=== PATIENT | male | born 1945 | race Caucasian/White ===

== ENCOUNTER 2016-12-05 19:29 | Emergency (ER) | payer BC, OTHER ==
[2016-12-05 19:38] VITALS: BP 125/68; PULSE 74; TEMP 98.4; BMI 25.7
--- NOTE | 2016-12-05 20:21 | PDOC ---
History of Present Illness - General Chief Complaint: Chest Pain Stated Complaint: CHEST PAIN Time Seen by Provider: 12/05/16 20:01 History Source: Patient Exam Limitations: No Limitations - History of Present Illness Initial Comments: 12/05/16 20:15 (Patient resting in bed texting prior to entering examination room; no acute distress identified). 71yo Male patient w/ PmHx: HTN, HLD, DVT, PE, Prostate CA (14yrs ago), Prostatectomy on Lovenox and Coumadin 5mg presents to ED c/o Chest pains. Patient states Oct 23 he traveled to [facility] and return Nov 12. At this time he was experiencing abdominal pain with diarrhea and was diagnosed with travelers diarrhea by PMD and put on two Abx. Symptoms resolved per patient. He states last week he went to see his PMD for results of stool culture , and described having right calf pain, and SOB with CP. He was sent to [place] where he was diagnosed with right LE DVT and Bilateral PE's. Patient was admitted and discharged 3 days later on Tylenol, Coumadin, and Lovenox. Patient now states having CP that began this morning with pressure that worsened this evening. He denies n/v/d, fever, cough, back pain, dizziness, headache, lightheadedness, rash or any other complaints at this time. Presenting Symptoms: Chest Pain Timing/Duration: reports: getting worse Severity/Quality: reports: moderate, pressure Location: reports: other (Left chest wall.) Chest Pain Radiation: reports: no radiation Activities at Onset: reports: no specific activity Past History - Travel Traveled outside of the country in the last 30 days: No Close contact w/someone who was outside of country & ill: No - Past Medical History Allergies/Adverse Reactions: Allergies Allergy/AdvReac Type Severity Reaction Status Date / Time No Known Allergies Allergy Verified 04/17/15 03:51 Home Medications: Ambulatory Orders Simvastatin 20 mg PO DAILY 09/02/11 Atenolol [Tenormin] 25 mg PO DAILY 09/18/12 Cancer: Yes (PROSTATE; REMOVED) HTN: Yes Hypercholesterolemia: Yes - Suicide/Smoking/Psychosocial Hx Smoking Status: No Smoking History: Former smoker Have you smoked in the past 12 months: No Number of Cigarettes Smoked Daily: 0 Information on smoking cessation initiated: No Hx Alcohol Use: No Drug/Substance Use Hx: No Substance Use Type: None Cardiac Specific PMH - Complaint Specific PMHX Abdominal Aortic Aneurysm: No Angina: No Cardiac Arrhythmia: No Cardiac Stent: No GERD: No Myocardial Infarction: No Pacemaker: No Pulmonary Embolus: No Valvular Heart Disease: No Peripheral Vascular Disease: No Review of Systems - Review of Systems Able to Perform ROS?: Yes Is the patient limited Dominican proficient: No Constitutional: No: Chills, Fever Respiratory: No: Cough, Shortness of Breath, Wheezing, Productive cough Cardiac (ROS): Yes: Chest Pain. No: Edema, Irregular Heart Rate, Lightheadedness, Palpitations, Syncope, Chest Tightness ABD/GI: No: Constipated, Diarrhea, Nausea, Poor Appetite, Poor Fluid Intake, Rectal Bleeding, Vomiting, Abdominal cramping : No: Dysuria Musculoskeletal: No: Back Pain Integumentary: No: Bruising All Other Systems: Reviewed and Negative *Physical Exam - Vital Signs Last Vital Signs Temp Pulse Resp BP Pulse Ox 98.4 F 74 99 H 125/68 99 12/05/16 19:35 12/05/16 19:35 12/05/16 19:35 12/05/16 19:35 12/05/16 19:35 - Physical Exam General Appearance: Yes: Nourished, Appropriately Dressed. No: Apparent Distress, Mild Distress, Moderate Distress, Severe Distress Neck: positive: Trachea midline, Normal Thyroid, Supple. negative: Rigid, Stridor, Lymphadenopathy (R), Lymphadenopathy (L) Respiratory/Chest: positive: Lungs Clear, Normal Breath Sounds. negative: Chest Tender, Respiratory Distress, Accessory Muscle Use, Labored Respiration, Rapid RR, Rhonchi, Stridor, Wheezing Cardiovascular: positive: Regular Rhythm, Regular Rate Gastrointestinal/Abdominal: positive: Normal Bowel Sounds, Soft, Distended. negative: Tender, Flat, Guarding, Rebound, Tenderness Musculoskeletal: positive: Normal Inspection. negative: CVA Tenderness, Decreased Range of Motion Extremity: positive: Normal Capillary Refill, Normal Inspection, Normal Range of Motion. negative: Pedal Edema, Swelling, Calf Tenderness, Erythema, Inflammation Integumentary: positive: Normal Color, Dry, Warm Neurologic: positive: director pharmacovigilance II-XII NML intact, Fully Oriented, Alert, Normal Mood/ Affect, Normal Response, Motor Strength 5/5 Heart Score/ECG Review - History History: Slightly suspicious - Electrocardiogram EKG: Normal - Age Age: >/= 65 - Risk Factors Risk Factors Heart Score: Yes Hx Hypercholesterolemia, Yes Hx Hypertension, No Hx Diabetes, No Smoking History, No Positive family hx of cardiac disease, No Hx Obesity Based on the list above the patient has:: 1-2 risk factors - Troponin Troponin: </= normal limit - Score Heart Score - Total: 3 - ECG Impressions Normal ECG: Yes Non-specific ST Elevation: No Ischemic Changes: No Bradycardia: No Torsades osbaldo Pointes: No WPW: No ED Treatment Course - LABORATORY CBC & Chemistry Diagram: 12/05/16 20:30 12/05/16 20:30 - ADDITIONAL ORDERS Additional order review: Laboratory Results 12/05/16 12/05/16 12/05/16 20:30 20:30 20:30 PT with INR 45.80 H INR 4.05 H* PTT (Actin FS) 54.4 H Sodium 137 Potassium 3.6 Chloride 102 Carbon Dioxide 31 D Anion Gap 4 L BUN 18 Creatinine 0.8 Creat Clearance w eGFR > 60 Random Glucose 118 H D Calcium 9.0 Total Bilirubin 0.6 D AST 26 D ALT 42 D Alkaline Phosphatase 52 Creatine Kinase 55 Troponin I 0.02 Total Protein 6.6 Albumin 3.3 L Urine Color Ltyellow Urine Appearance Clear Urine pH 5.0 Ur Specific [place] 1.010 Urine Protein Negative Urine Glucose (UA) Negative Urine Ketones Negative Urine Blood Negative Urine Nitrite Negative Urine Bilirubin Negative Urine Urobilinogen Negative 12/05/16 20:30 RBC 4.33 MCV 96.9 H MCHC 34.3 RDW 13.3 MPV 7.2 L Neutrophils % 70.1 Lymphocytes % 17.2 D Monocytes % 11.6 H D Eosinophils % 0.4 D Basophils % 0.7 D - RADIOLOGY Radiology Studies Ordered: Category Date Time Status ABDOMEN & PELVIS CT WITH CONTR [CT] Stat CT Scan 12/05/16 22:04 Completed CHEST CTA [CT] Stat CT Scan 12/05/16 22:04 Completed ABDOMEN US -LIMITED [US] Stat Ultrasound 12/06/16 00:27 Ordered *DC/Admit/Observation/Transfer Diagnosis at time of Disposition: Chest pain Qualifiers: Chest pain type: unspecified Qualified Code(s): R07.9 - Chest pain, unspecified Cholelithiasis Qualifiers: Cholelithiasis location: gallbladder Cholecystitis presence: without cholecystitis Biliary obstruction: without biliary obstruction Qualified Code(s) : K80.20 - Calculus of gallbladder without cholecystitis without obstruction - Discharge Dispostion Condition at time of disposition: Fair Admit: Yes
[2016-12-05 20:41] LABS: URINE APPEARANCE CLEAR; URINE BILIRUBIN NEGATIVE (NEGATIVE); URINE BLOOD NEGATIVE (NEGATIVE); URINE COLOR LTYELLOW; URINE GLUCOSE (UA) NEGATIVE (NEGATIVE); URINE KETONE NEGATIVE (NEGATIVE); URINE LEUK ESTERASE NEGATIVE (NEGATIVE); URINE NITRITE NEGATIVE (NEGATIVE); URINE PROTEIN NEGATIVE (NEGATIVE); URINE UROBILINOGEN NEGATIVE mg/dL (0.2-1.0)
[2016-12-05 20:45] LABS: BASOPHIL 0.7 % (0-2.0); EOSINOPHIL 0.4 % (0-4.5); MCH 33.3 pg (25.7-33.7); MCHC 34.3 g/dl (32.0-35.9); MEAN CELL VOLUME 96.9 fl (80-96); MEAN PLT VOLUME 7.2 fl (7.5-11.1); NEUTROPHILS 70.1 % (42.8-82.8); PLATELET COUNT 285 K/MM3 (134-434); RDW 13.3 % (11.9-15.9); WHITE BLOOD COUNT 5.3 K/mm3 (4.0-10.0)
[2016-12-05 20:50] LABS: INR 4.05 (0.82-1.09); PROTHROMBIN TIME (PATIENT) 45.8 SEC (9.98-11.88)
[2016-12-05 20:55] LABS: ACTIVATED PTT 54.4 SECONDS (26.9-34.4)
[2016-12-05 21:31] LABS: ALBUMIN 3.3 g/dl (3.4-5.0); ANION GAP 4 (8-16); CO2 31 mmol/L (21-32); CREATININE 0.8 mg/dL (0.7-1.3); GLUCOSE,RANDOM 118 mg/dL (74-106); SGOT/AST 26 U/L (15-37); SGPT/ALT 42 U/L (12-78)
[2016-12-05 21:35] LABS: ALK PHOS 52 U/L (45-117); BILIRUBIN,TOTAL 0.6 mg/dL (0.2-1.0); CPK 55 IU/L (39-308); TOT PROT 6.6 g/dl (6.4-8.2); TROPONIN I 0.02 ng/ml (0.00-0.05)
[2016-12-06] MEDS ORDERED: ASPIRIN 81 MG CHEWABLE TABLETS PO ONE (00:43)
--- NOTE | 2016-12-06 01:52 | HOSP ---
Physical Examination Vital Signs: Vital Signs Temperature 98.4 F 12/05/16 19:35 Pulse Rate 74 12/05/16 19:35 Respiratory Rate 99 H 12/05/16 19:35 Blood Pressure 125/68 12/05/16 19:35 O2 Sat by Pulse Oximetry (%) 99 12/05/16 19:35 Hospitalist Encounter Assessment: Upon arriving to bedside to examine pt, pt states "I have to leave by 6am for a doctor appointment in the city." Pt does not want to stay as inpatient obs. DW ED attending and PACKER INSPECTOR who agree pt should stay for 2nd troponin at 3am and then can be discharged home to his MD appointment if it is negative. Discussed plan with patient and he is in agreement. Observation admission cancelled.
[2016-12-06 03:01] LABS: TROPONIN I 0.02 ng/ml (0.00-0.05)
--- NOTE | 2016-12-06 03:24 | PDOC ---
ED Treatment Course - LABORATORY CBC & Chemistry Diagram: 12/05/16 20:30 12/05/16 20:30 - ADDITIONAL ORDERS Additional order review: Laboratory Results 12/05/16 12/05/16 12/05/16 20:30 20:30 20:30 PT with INR 45.80 H INR 4.05 H* PTT (Actin FS) 54.4 H Sodium 137 Potassium 3.6 Chloride 102 Carbon Dioxide 31 D Anion Gap 4 L BUN 18 Creatinine 0.8 Creat Clearance w eGFR > 60 Random Glucose 118 H D Calcium 9.0 Total Bilirubin 0.6 D AST 26 D ALT 42 D Alkaline Phosphatase 52 Creatine Kinase 55 Troponin I 0.02 Total Protein 6.6 Albumin 3.3 L Urine Color Ltyellow Urine Appearance Clear Urine pH 5.0 Ur Specific [place] 1.010 Urine Protein Negative Urine Glucose (UA) Negative Urine Ketones Negative Urine Blood Negative Urine Nitrite Negative Urine Bilirubin Negative Urine Urobilinogen Negative 12/05/16 20:30 RBC 4.33 MCV 96.9 H MCHC 34.3 RDW 13.3 MPV 7.2 L Neutrophils % 70.1 Lymphocytes % 17.2 D Monocytes % 11.6 H D Eosinophils % 0.4 D Basophils % 0.7 D - RADIOLOGY Radiology Studies Ordered: Category Date Time Status ABDOMEN & PELVIS CT WITH CONTR [CT] Stat CT Scan 12/05/16 22:04 Completed CHEST CTA [CT] Stat CT Scan 12/05/16 22:04 Completed ABDOMEN US -LIMITED [US] Stat Ultrasound 12/06/16 00:27 Taken - Medications Given in the ED: ED Medications Discontinued Medications Generic Name Dose Route Start Last Admin Trade Name Freq PRN Reason Stop Dose Admin Aspirin 162 mg 12/06/16 00:43 12/06/16 02:33 Asa - PO 12/06/16 00:44 162 mg ONCE ONE Administration Medical Decision Making - Medical Decision Making 12/06/16 03:23 Second Troponin return normal. Patient to be d/c'd to home. Patient has appointment with Pulmonary/Cardiology @ 0900 today. This case was discussed with Melissa DENNIS and Dr. Michi AGUILAR. *DC/Admit/Observation/Transfer Diagnosis at time of Disposition: Chest pain Qualifiers: Chest pain type: unspecified Qualified Code(s): R07.9 - Chest pain, unspecified Cholelithiasis Qualifiers: Cholelithiasis location: gallbladder Cholecystitis presence: without cholecystitis Biliary obstruction: without biliary obstruction Qualified Code(s) : K80.20 - Calculus of gallbladder without cholecystitis without obstruction - Discharge Dispostion Disposition: HOME Condition at time of disposition: Stable Admit: No - Patient Instructions
--- NOTE | 2016-12-06 09:15 | EKG ---
Test Reason : Blood Pressure : / mmHG Vent. Rate : 070 BPM Atrial Rate : 070 BPM P-R Int : 158 ms QRS Dur : 112 ms QT Int : 406 ms P-R-T Axes : 028 012 057 degrees QTc Int : 438 ms NORMAL SINUS RHYTHM NON-SPECIFIC INTRA-VENTRICULAR CONDUCTION DELAY Confirmed by ASIA ACUNA MD ([id number]) on 12/06/2016 9:14:48 AM Referred By: Confirmed By:ASIA ACUNA MD
== END 2016-12-06 06:34 | disposition home or self-care (01) ==
LOC: JER 19:29 → UNDOADMOB 12-06 00:56 → JERBED 12-06 00:56 → UNDOADMOB 12-06 01:03 → JER 12-06 06:34
DX: K80.20 Calculus of gallbladder without cholecystitis without obstruction (principal); I10 Essential (primary) hypertension; E78.00 Pure hypercholesterolemia, unspecified; Z86.718 Personal history of other venous thrombosis and embolism; Z85.46 Personal history of malignant neoplasm of prostate; Z79.01 Long term (current) use of anticoagulants
CPT/HCPCS: 36415; 71275-TC; 74177-TC; 76705-TC; 80053; 81003; 84484; 85025; 85610; 85730; 87086; 93005; 93010; 99284-25

== ENCOUNTER 2017-07-13 02:11 | Inpatient (IN) | payer BC, OTHER ==
--- NOTE | 2017-07-13 02:39 | PDOC ---
History of Present Illness - General Stated Complaint: ABDOMINAL PAIN Time Seen by Provider: 07/13/17 02:32 History Source: Patient Exam Limitations: No Limitations - History of Present Illness Initial Comments: 07/13/17 05:01 72yo Male patient w/ PmHx: HTN, HLD, DVT, PE, Prostate CA (14yrs ago), Prostatectomy (not on lovanox as of April) presnets to the ED for 10 epigastric/paraumbilical abdominal pain since around 2am. after he went to the bathroom. Has a history of gallstones. Denies fever, diarrhea. Past History - Past Medical History Allergies/Adverse Reactions: Allergies Allergy/AdvReac Type Severity Reaction Status Date / Time No Known Allergies Allergy Verified 07/13/17 02:45 Home Medications: Ambulatory Orders Atenolol [Tenormin] 25 mg PO DAILY 09/18/12 Aspirin 162 mg PO DAILY 07/13/17 Atorvastatin Ca [Lipitor] 20 mg PO HS 07/13/17 Omeprazole 40 mg PO DAILY 07/13/17 Cancer: Yes (PROSTATE; REMOVED) Diabetes: No HTN: Yes Hypercholesterolemia: Yes - Suicide/Smoking/Psychosocial Hx Smoking Status: No Smoking History: Former smoker Have you smoked in the past 12 months: No Number of Cigarettes Smoked Daily: 0 Hx Alcohol Use: No Drug/Substance Use Hx: No Substance Use Type: None Abd/GI Specific PMHX - Complaint Specific PMHX GERD: No Review of Systems - Review of Systems Able to Perform ROS?: Yes Is the patient limited Chinese proficient: No Constitutional: No: Symptoms Reported HEENTM: No: Symptoms Reported Respiratory: No: Symptoms reported Cardiac (ROS): No: Symptoms Reported ABD/GI: Yes: See HPI, Abdominal Distended, Abdominal cramping. No: Abd. Pain w / defecation, Blood Streaked Bowels : No: Symptoms Reported Musculoskeletal: No: Symptoms Reported Neurological: No: Symptoms reported All Other Systems: Reviewed and Negative *Physical Exam - Physical Exam General Appearance: Yes: Nourished, Appropriately Dressed. No: Apparent Distress HEENT: positive: EOMI, DARRIAN, Normal ENT Inspection Respiratory/Chest: positive: Lungs Clear, Normal Breath Sounds. negative: Chest Tender, Respiratory Distress Cardiovascular: positive: Regular Rhythm, Regular Rate, S1, S2 Gastrointestinal/Abdominal: positive: Normal Bowel Sounds, Tender (periumbilical , epigastric), Protuberent Musculoskeletal: positive: Normal Inspection. negative: CVA Tenderness Extremity: positive: Normal Capillary Refill, Normal Inspection, Normal Range of Motion Neurologic: positive: Fully Oriented, Alert, Normal Mood/Affect, Normal Response , Motor Strength 07/19 ED Treatment Course - LABORATORY CBC & Chemistry Diagram: 07/13/17 03:00 07/13/17 03:00 Medical Decision Making - Medical Decision Making 07/13/17 06:20 72m presents to the ED with abdominal pain for the past few hours after dinner. Will order basic labs, Ct abdomen and pelvis with contrast. CT positive for cholelithisis and cholecystitis. Will consult with surgery and admit patient. *DC/Admit/Observation/Transfer Diagnosis at time of Disposition: Cholecystitis - Discharge Dispostion Condition at time of disposition: Fair - Referrals Referrals: ON STAFF,NOT [Primary Care Provider] - - Patient Instructions - Post Discharge Activity
[2017-07-13 02:53] VITALS: BMI 26.9
--- NOTE | 2017-07-13 03:05 | PDOC ---
Attending Attestation - Resident Resident Name: Juan Alberto Glass - ED Attending Attestation I have performed the following: I have examined & evaluated the patient, The case was reviewed & discussed with the resident, I agree w/resident's findings & plan - HPI HPI: 07/13/17 03:05 Pt has hyperactive and some high pitched bowel sounds. Pt has belly distension. Last meal was at 5PM; last BM was 1-2 hrs ago, Pt states that it was normal consistency and size stool. - Physicial Exam PE: 07/13/17 03:03 Agree with resident exam. Pt states that he has no fever, no dysuria, no flank pain. No N/V/D - Medical Decision Making 07/13/17 04:53 Patient Name: YOGESH MEJÍA THIS IS A PRELIMINARY REPORT FROM [facility] DATE OF SERVICE: 2017-07-13 04:09:31 IMAGES: 201 EXAM: CT ABDOMEN \T\ PELVIS CT WITH CONTR HISTORY: Obstruction COMPARISON: None. FINDINGS: Abdomen Liver: Normal Spleen: Normal Pancreas: Normal Gallbladder: Gallbladder is distended. There is cholelithiasis. There is some gallbladder wall thickening Stomach: Normal Small bowel: Normal Large bowel: Normal Appendix: Normal Adrenals:Normal Kidneys: There is a left renal cyst Vascular: Normal Lymphatic: Normal Peritoneal: No free peritoneal air or fluid Pelvis: Prostate: normal Rectum: Normal Bladder: Normal The inferior thorax: Normal General: Skeletal: Normal Abdominal wall: There is a left femoral hernia containing a portion of nonobstructed sigmoid colon IMPRESSION: Gallbladder distention with cholelithiasis suggesting acute cholecystitis THIS DOCUMENT HAS BEEN ELECTRONICALLY SIGNED 07/13/17 05:10 Pt will be admitted to med surg hospitalist. We will notify the surgeons natural resources extension educator to come and see the patient. <Yadira Johnson - Last Filed: 07/13/17 04:53> Heart Score/ECG Review - ECG Intrepretation Comment:: 07/13/17 05:35 sinus bradycardia Otherwise normal ECG <Pancho Cross - Last Filed: 07/13/17 05:50>
[2017-07-13 03:06] LABS: BASO % 0.6 % (0-2.0); EOS % 0.7 % (0-4.5); HEMATOCRIT 44.1 % (35.4-49); HEMOGLOBIN 15.4 GM/dL (11.7-16.9); LYMPH % 16.9 % (8-40); MCH 33.6 pg (25.7-33.7); MCHC 34.9 g/dl (32.0-35.9); MEAN CELL VOLUME 96.4 fl (80-96); MEAN PLT VOLUME 7.8 fl (7.5-11.1); MONO % 9.1 % (3.8-10.2); NEUT % 72.7 % (42.8-82.8); PLATELET COUNT 183 K/MM3 (134-434); RBC 4.57 M/mm3 (4.00-5.60); RDW 13.3 % (11.9-15.9); WHITE BLOOD COUNT 6.3 K/mm3 (4.0-10.0)
[2017-07-13 03:32] LABS: ALBUMIN 3.5 g/dl (3.4-5.0); ALK PHOS 55 U/L (45-117); AMYLASE 31 U/L (25-115); ANION GAP 7 (8-16); BILIRUBIN,TOTAL 0.9 mg/dL (0.2-1.0); BLOOD UREA NITROGEN 14 mg/dL (7-18); CALCIUM 9.2 mg/dL (8.5-10.1); CHLORIDE 105 mmol/L (98-107); CO2 28 mmol/L (21-32); CREATININE 0.7 mg/dL (0.7-1.3); GLUCOSE,RANDOM 109 mg/dL (74-106); LIPASE 48 U/L (73-393); SGPT/ALT 20 U/L (12-78); SODIUM 140 mmol/L (136-145); TOT PROT 6.5 g/dl (6.4-8.2)
[2017-07-13 03:38] LABS: SGOT/AST 45 U/L (15-37)
[2017-07-13 08:12] LABS: URINE APPEARANCE CLEAR; URINE BILIRUBIN NEGATIVE (<2.0 mg/dL); URINE COLOR YELLOW; URINE GLUCOSE (UA) NEGATIVE (NEGATIVE); URINE KETONE NEGATIVE (NEGATIVE)
[2017-07-13 08:13] LABS: URINE LEUK ESTERASE NEGATIVE (NEGATIVE); URINE NITRITE NEGATIVE (NEGATIVE); URINE PROTEIN NEGATIVE (NEGATIVE); URINE UROBILINOGEN NORMAL mg/dL (0.2-1.0)
[2017-07-13 08:38] LABS: INR 1.17 (0.82-1.09); PROTHROMBIN TIME (PATIENT) 13.2 SEC (9.7-13.0)
[2017-07-13] MEDS ORDERED: SIMETHICONE 40 MG/0.6 ML BOTTLE PO PRN (08:38)
[2017-07-13] MEDS ORDERED: ACETAMINOPHEN 325 MG TABLET (FP) PO ONE (08:38)
--- NOTE | 2017-07-13 08:38 | HP ---
<Matthew Andino - Last Filed: 07/13/17 12:39> CHIEF COMPLAINT: abdominal pain PCP:Dr. yonas Viveros [phone], [facility] HISTORY OF PRESENT ILLNESS: 72 yr old man with HTN, HLD, hx of right leg DVT and v/l PE(dx 11/2016, completed AC tx in Mar 2017), presents to ED with abdominal pain since 1am this morning. Yesterday he ate shrimp, rice, beans, ice cream, 2 glasses of sangria around 5pm at a restaurant, went home and was able to sleep. At 1am he woke up with diffuse abdominal pain, had a nonbloody bowel movement, the pain was 10/10 , nonradiating with no alleviating or exacerbation factors. no vomiting, no fevers, no diarrhea. associated with mild dizziness when he sits up suddenly starting this morning in ED. ER course was notable for: (1)abd pelvic CT (2) surgery consult Recent Travel: none PAST MEDICAL HISTORY: hx of cholelithiasis HTN HLD DVt. 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 Smoking: denies Alcohol: occasionally Drugs: denies Family History: [place] Allergies No Known Allergies Allergy (Verified 07/13/17 02:45) HOME MEDICATIONS: Home Medications Medication Instructions Recorded Atenolol [Tenormin] 25 mg PO DAILY 09/18/12 Aspirin 162 mg PO DAILY 07/13/17 Atorvastatin Ca [Lipitor] 20 mg PO HS 07/13/17 Omeprazole 40 mg PO DAILY 07/13/17 REVIEW OF SYSTEMS CONSTITUTIONAL: Present: weight change - unintentional, say he has not been eating his usual diet due to taking care of his mother and in past 2 months due to their acute health problems Absent: fever, chills, diaphoresis, generalized weakness, malaise, loss of appetite, HEENT: Absent: rhinorrhea, nasal congestion, throat pain, throat swelling, difficulty swallowing, mouth swelling, ear pain, eye pain, visual changes CARDIOVASCULAR: Absent: chest pain, syncope, palpitations, irregular heart rate, lightheadedness , peripheral edema RESPIRATORY: Absent: cough, shortness of breath, dyspnea with exertion, orthopnea, wheezing, stridor, hemoptysis GASTROINTESTINAL: Present:abdominal pain, abdominal distension Absent: nausea, vomiting, diarrhea, constipation, melena, hematochezia GENITOURINARY: Absent: dysuria, frequency, urgency, hesitancy, hematuria, flank pain MUSCULOSKELETAL: Absent: myalgia, arthralgia, joint swelling, back pain, neck pain SKIN: Absent: rash, itching, pallor HEMATOLOGIC/IMMUNOLOGIC: Absent: easy bleeding, easy bruising, lymphadenopathy, frequent infections ENDOCRINE: Absent: unexplained weight gain, unexplained weight loss, heat intolerance, cold intolerance NEUROLOGIC: Absent: headache, focal weakness or paresthesias, dizziness, unsteady gait PHYSICAL EXAMINATION Vital Signs - 24 hr 07/13/17 07/13/17 07/13/17 02:41 07:36 07:37 Temperature 98.7 F 97.6 F Pulse Rate 56 L Pulse Rate [ 53 L Apical] Respiratory 19 18 Rate Blood Pressure 135/79 Blood Pressure 117/61 [Right Arm] O2 Sat by Pulse 98 97 100 Oximetry (%) GENERAL: Awake, alert, and fully oriented, in no acute distress. HEAD: Normal with no signs of trauma. EYES: Pupils equal, round and reactive to light, extraocular movements intact, sclera anicteric, conjunctiva clear. No lid lag. EARS, NOSE, THROAT: Ears normal, nares patent, oropharynx clear without exudates. Moist mucous membranes. NECK: Normal range of motion, supple without lymphadenopathy, JVD, or masses. LUNGS: Breath sounds equal, clear to auscultation bilaterally. No wheezes, and no crackles. No accessory muscle use. HEART: Regular rate and rhythm, normal S1 and S2 without murmur, rub or gallop. ABDOMEN: Soft, nontender, +distended, mild engorgement of abdominal veins, normoactive bowel sounds, no guarding, no rebound, no masses. No hepatomegaly or splenomegaly. negative mc's, negative psoas, neg obturator, no rovsings MUSCULOSKELETAL: Normal range of motion at all joints. No bony deformities or tenderness. No CVA tenderness. UPPER EXTREMITIES: 2+ radial pulses, warm, well-perfused. No cyanosis. No clubbing. No peripheral edema. LOWER EXTREMITIES: warm, well-perfused. No calf tenderness. No peripheral edema. NEUROLOGICAL: Cranial nerves II-XII intact. Normal speech. Normal gait. 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 PSYCHIATRIC: Cooperative. Good eye contact. Appropriate mood and affect. SKIN: Warm, dry, normal turgor, no rashes or lesions noted, normal capillary refill. Laboratory Results - last 24 hr 07/13/17 07/13/17 07/13/17 02:48 03:00 03:00 WBC 6.3 RBC 4.57 Hgb 15.4 Hct 44.1 MCV 96.4 H MCH 33.6 MCHC 34.9 RDW 13.3 Plt Count 183 D MPV 7.8 Neutrophils % 72.7 Lymphocytes % 16.9 Monocytes % 9.1 Eosinophils % 0.7 Basophils % 0.6 PTT (Actin FS) D-Dimer Sodium 140 Potassium 5.0 D Chloride 105 Carbon Dioxide 28 Anion Gap 7 L BUN 14 D Creatinine 0.7 Creat Clearance w eGFR > 60 POC Glucometer Random Glucose 109 H Calcium 9.2 Total Bilirubin 0.9 D AST 45 H D ALT 20 D Alkaline Phosphatase 55 Total Protein 6.5 Albumin 3.5 Total Amylase 31 Lipase 48 L Urine Color Yellow Urine Appearance Clear Urine pH 6.0 Ur Specific [place] > 1.060 H Urine Protein Negative Urine Glucose (UA) Negative Urine Ketones Negative Urine Blood Negative Urine Nitrite Negative Urine Bilirubin Negative Urine Urobilinogen Normal Ur Leukocyte Esterase Negative 07/13/17 07/13/17 07/13/17 03:00 03:00 07:34 WBC RBC Hgb Hct MCV MCH MCHC RDW Plt Count MPV Neutrophils % Lymphocytes % Monocytes % Eosinophils % Basophils % PTT (Actin FS) 35.1 H D D-Dimer 559 H Sodium Potassium Chloride Carbon Dioxide Anion Gap BUN Creatinine Creat Clearance w eGFR POC Glucometer 143.95197 Random Glucose Calcium Total Bilirubin AST ALT Alkaline Phosphatase Total Protein Albumin Total Amylase Lipase Urine Color Urine Appearance Urine pH Ur Specific [place] Urine Protein Urine Glucose (UA) Urine Ketones Urine Blood Urine Nitrite Urine Bilirubin Urine Urobilinogen Ur Leukocyte Esterase ASSESSMENT/PLAN: 72 yr old man with abdominal pain admitted for abdominal pain. #abominal pain, differential included gastritis(recent seafood/rice/beans ingestion), cholelithiasis(though less likely given wnl LFT's, no mc's, no radiological findings on CT) vs biliary colic, pancreatitis(less likely given normal lipase and no radiological findings), vs constipation (though less likely due to last bm at 1am and no obstruction on CT) - pt was in NAD on exam or during interview, was given no pain meds in ED - will given tylenol po, [place], miralax, omeprazole - start clear liq diet, if tolerating - surgery evaluation - pain control with tylenol q8hr, escalate if more control is needed - LR for 1 L for hydration #pharmacy was still closed in the am, will need to confirm meds when open. #elevated AST likely due to ETOH use last night, will trend in the AM #HTN - continue home medication tenormin 25mg #HLD - continue lipitor - hold the asa incase of surgery #DVT: lovenox Visit type - Emergency Visit Emergency Visit: Yes ED Registration Date: 07/13/17 Care time: The patient presented to the Emergency Department on the above date and was hospitalized for further evaluation of their emergent condition. - New Patient This patient is new to me today: Yes Date on this admission: 07/13/17 - Critical Care Critical Care patient: No Hospitalist Screening - Colonoscopy Questionnaire Colonoscopy Questionnaire: Colonoscopy Questionnaire - Patient: 50 - 75 years old and never had a screening colonoscopy: No History of colon or rectal polyps, or CA: No History of IBD, Crohn's disease or UC: No History of abdominal radiation therapy as a child: No - Relative: 1 with colon or rectal CA, or polyps at age 60 or younger: No Colon or rectal CA diagnosed at age 45 or younger: No Multiple relatives with colon or rectal CA: No - Outcome: Screening Result: Negative Screen <Neeraj Ruggiero - Last Filed: 07/15/17 16:13> A/P: Acute Biliary colic, presented with Right Upper Quadrant pain, CT abdomen and Pelvis ordered to r/o Cholelithiasis/cholecystitis. Hospitalist Screening - Colonoscopy Questionnaire Colonoscopy Questionnaire: Colonoscopy Questionnaire
[2017-07-13] MEDS ORDERED: ACETAMINOPHEN 325 MG TABLET (FP) ONE (09:06)
[2017-07-13] MEDS ORDERED: LACTATED RINGERS SOLUTION 1,000 ML/1,000 ML INFUS.BAG IV SCH (10:00)
[2017-07-13] MEDS ORDERED: ENOXAPARIN NA (PORCINE) 40 MG/0.4 ML DISP.SYRIN SQ SCH (10:00)
[2017-07-13] MEDS ORDERED: POLYETHYLENE GLYCOL 3350 119 GM BTL PO SCH (10:00)
--- NOTE | 2017-07-13 10:28 | CONSULT ---
Consult Consult Specialty:: general surgery Referred by:: michelle Reason for Consultation:: acute cholecystis - History of Present Illness Chief Complaint: abdominal pain History of Present Illness: 72 yo man PMH HTN, HLD, hx of right leg DVT and v/l PE(dx 11/2016, completed AC tx in Mar 2017), presents with acute onset abdominal pain since 1am this morning. Yesterday he ate shrimp, rice, beans, ice cream, 2 glasses of sangria around 5pm at a restaurant, went home and was able to sleep. At 1am he woke up with diffuse abdominal pain, had a non bloody bowel movement, the pain was 10/10 , nonradiating with no alleviating or exacerbation. factors. no vomiting. No recend endoscopy. No previous abdominal surgery. CT scan shows and inflammed gallbladder and gallstones. We were asked to assess. - History Source History Provided By: Patient, Medical Record Limitations to Obtaining History: No Limitations - Past Medical History Cardio/Vascular: Yes: Deep Vein Thrombosis, HTN, Hyperlipdemia Pulmonary: Yes: Pulmonary Embolus - Alcohol/Substance Use Hx Alcohol Use: No - Smoking History Smoking history: Former smoker Have you smoked in the past 12 months: No Aproximately how many cigarettes per day: 0 - Social History History of Recent Travel: No Home Medications - Allergies Allergies/Adverse Reactions: Allergies Allergy/AdvReac Type Severity Reaction Status Date / Time No Known Allergies Allergy Verified 07/13/17 02:45 - Home Medications Home Medications: Ambulatory Orders Atenolol [Tenormin] 25 mg PO DAILY 09/18/12 Aspirin 162 mg PO DAILY 07/13/17 Atorvastatin Ca [Lipitor] 20 mg PO HS 07/13/17 Omeprazole 40 mg PO DAILY 07/13/17 Review of Systems - Review of Systems Constitutional: denies: Chills, Fever Eyes: denies: Blind Spots, Recent Change in Vision HENT: denies: Difficult Swallowing, Throat Pain Respiratory: denies: Cough, SOB Gastrointestinal: reports: Abdominal Pain, Indigestion. denies: Nausea Genitourinary: denies: Discharge, Dysuria Breasts: reports: No Symptoms Reported. denies: Pain Musculoskeletal: denies: Muscle Pain, Muscle Weakness Integumentary: denies: Lesions, Rash Neurological: denies: Seizure, Syncope Endocrine: denies: Unexplained Weight Gain, Unexplained Weight Loss Hematology/Lymphatic: denies: Easily Bruised, Excessive Bleeding Psychiatric: denies: Anxiety, Depression Physical Exam Vital Signs: Vital Signs Temperature 97.6 F 07/13/17 07:36 Pulse Rate 59 L 07/13/17 09:05 Respiratory Rate 16 07/13/17 09:05 Blood Pressure 121/64 07/13/17 09:05 O2 Sat by Pulse Oximetry (%) 97 07/13/17 09:05 Vital Signs Period Temp Pulse Resp BP Sys/Gallagher Pulse Ox Last 24 Hr 97.6 F-98.7 F 53-59 16-19 117-135/61-79 97-100 Constitutional: Yes: Well Nourished, No Distress, Calm Eyes: Yes: Conjunctiva Clear, EOM Intact HENT: Yes: Atraumatic, Normocephalic Neck: Yes: Supple, Trachea Midline Cardiovascular: Yes: Regular Rate and Rhythm, S1, S2 Respiratory: Yes: Regular, CTA Bilaterally Gastrointestinal: Yes: Normal Bowel Sounds, Soft, Abdomen, Obese, Distention, Tenderness (RUQ tenderness, - mc's), Tenderness, Epigastrium. No: Tenderness, Rebound, Vomiting ...Rectal Exam: Yes: Sphincter Tone Normal. No: Hemorrhoids/External, Mass Renal/: No: CVA Tenderness - Left, CVA Tenderness - Right Extremities: No: Cool, Cyanosis Integumentary: No: Jaundice, Rash Neurological: Yes: Alert, Oriented Psychiatric: Yes: Alert, Oriented Labs: CBC, BMP 07/13/17 03:00 07/13/17 03:00 Imaging - Results Cat Scan: Report Reviewed (gallstones and inflamed gallbladder), Image Reviewed Problem List - Problems (1) Cholecystitis Assessment/Plan: 72 yo male MMP with biliary colic versus early acute cholecystitis NPO and IVF hydration adequate analgesia Medical optimization DVT prophylaxsis Discussed with patient risks, benefits and alternatives of laparoscopic possible open cholecystectomy, including but not limited to bleeding, infection , injury to adjacent structures, leak or injury, intraabdominal abscess, need for further procedures, ; alternatives include antibiotics, delayed or no surgery - risks of this include failure of nonoperative therapy, perforation, sepsis, recurrence, . Patient desires to proceed with operation - will take to OR for above. Informed consent signed for same. Thank you for the opportunity to participate in the care of this patient. Code(s): K81.9 - CHOLECYSTITIS, UNSPECIFIED (2) Abdominal pain Code(s): R10.9 - UNSPECIFIED ABDOMINAL PAIN Qualifiers: Abdominal location: unspecified location Qualified Code(s): R10.9 - Unspecified abdominal pain (3) Cholelithiasis Code(s): K80.20 - CALCULUS OF GALLBLADDER W/O CHOLECYSTITIS W/O OBSTRUCTION Qualifiers: Cholelithiasis location: gallbladder Cholecystitis presence: without cholecystitis Biliary obstruction: without biliary obstruction Qualified Code(s): K80.20 - Calculus of gallbladder without cholecystitis without obstruction (4) UTI (lower urinary tract infection) Code(s): N39.0 - URINARY TRACT INFECTION, SITE NOT SPECIFIED
--- NOTE | 2017-07-13 10:42 | EKG ---
Test Reason : Blood Pressure : / mmHG Vent. Rate : 054 BPM Atrial Rate : 054 BPM P-R Int : 170 ms QRS Dur : 112 ms QT Int : 434 ms P-R-T Axes : 051 018 056 degrees QTc Int : 411 ms SINUS BRADYCARDIA OTHERWISE NORMAL ECG WHEN COMPARED WITH ECG OF 05-DEC-2016 19:44, NONSPECIFIC T WAVE ABNORMALITY NO LONGER EVIDENT IN ANTERIOR LEADS Confirmed by SARAH AGUILAR, OLGA ([id number]) on 07/13/2017 10:42:05 AM Referred By: Confirmed By:OLGA SMITH MD
[2017-07-13] MEDS ORDERED: ACETAMINOPHEN 325 MG TABLET (FP) PO PRN (11:28)
--- NOTE | 2017-07-13 12:19 | PN ---
Teaching Attending Note Name of Resident: Matthew Andino ATTENDING PHYSICIAN STATEMENT I saw and evaluated the patient. I reviewed the resident's note and discussed the case with the resident. I agree with the resident's findings and plan as documented. SUBJECTIVE: Patient is c/o having RUQ pain started yesterday after having his Dinner with Sungria. OBJECTIVE: Vital Signs Temperature 97.6 F 07/13/17 07:36 Pulse Rate 59 L 07/13/17 09:05 Respiratory Rate 16 07/13/17 09:05 Blood Pressure 121/64 07/13/17 09:05 O2 Sat by Pulse Oximetry (%) 97 07/13/17 09:05 CBCD WBC 6.3 K/mm3 (4.0-10.0) 07/13/17 03:00 RBC 4.57 M/mm3 (4.00-5.60) 07/13/17 03:00 Hgb 15.4 GM/dL (11.7-16.9) 07/13/17 03:00 Hct 44.1 % (35.4-49) 07/13/17 03:00 MCV 96.4 fl (80-96) H 07/13/17 03:00 MCHC 34.9 g/dl (32.0-35.9) 07/13/17 03:00 RDW 13.3 % (11.9-15.9) 07/13/17 03:00 Plt Count 183 K/MM3 (134-434) D 07/13/17 03:00 MPV 7.8 fl (7.5-11.1) 07/13/17 03:00 CMP Sodium 140 mmol/L (136-145) 07/13/17 03:00 Potassium 5.0 mmol/L (3.5-5.1) D 07/13/17 03:00 Chloride 105 mmol/L (98-107) 07/13/17 03:00 Carbon Dioxide 28 mmol/L (21-32) 07/13/17 03:00 Anion Gap 7 (8-16) L 07/13/17 03:00 BUN 14 mg/dL (7-18) D 07/13/17 03:00 Creatinine 0.7 mg/dL (0.7-1.3) 07/13/17 03:00 Creat Clearance w eGFR > 60 (>60) 07/13/17 03:00 Random Glucose 109 mg/dL (74-106) H 07/13/17 03:00 Calcium 9.2 mg/dL (8.5-10.1) 07/13/17 03:00 Total Bilirubin 0.9 mg/dL (0.2-1.0) D 07/13/17 03:00 AST 45 U/L (15-37) H D 07/13/17 03:00 ALT 20 U/L (12-78) D 07/13/17 03:00 Alkaline Phosphatase 55 U/L (45-117) 07/13/17 03:00 Total Protein 6.5 g/dl (6.4-8.2) 07/13/17 03:00 Albumin 3.5 g/dl (3.4-5.0) 07/13/17 03:00 CARDIAC ENZYMES Troponin I < 0.02 ng/ml (0.00-0.05) 07/13/17 10:21 Current Medications Generic Name Dose Route Start Last Admin Trade Name Freq PRN Reason Stop Dose Admin Acetaminophen 650 mg 07/13/17 11:28 Tylenol - PO Q8H PRN PAIN LEVEL 4 - 6 Atenolol 25 mg 07/14/17 10:00 Tenormin - PO DAILY [facility] Atorvastatin Calcium 20 mg 07/13/17 22:00 Lipitor - PO HS [facility] Lactated Ringer's 1,000 ml in 1,000 mls @ 83 mls/hr 07/13/17 10:00 07/13/17 12:06 Lactated Ringers Solution IV 07/13/17 22:03 83 mls/hr ASDIR KALEIGH Administration Non-Formulary Medication 40 mg 07/14/17 10:00 Omeprazole PO DAILY [facility] Polyethylene Glycol 17 gm 07/13/17 10:00 07/13/17 12:07 Miralax (For Daily Use) - PO 17 grams DAILY K[facility]IGH Administration Simethicone 40 mg 07/13/17 08:38 Mylicon Liquid - PO QID PRN INDIGESTION Home Medications Medication Instructions Recorded Atenolol [Tenormin] 25 mg PO DAILY 09/18/12 Aspirin 162 mg PO DAILY 07/13/17 Atorvastatin Ca [Lipitor] 20 mg PO HS 07/13/17 Omeprazole 40 mg PO DAILY 07/13/17 PE: RUQ pain with diffuse tenderness. rest of PE as per resident's note ASSESSMENT AND PLAN: Patient is a 72 yr old man with no significant PMHx presented with diffuse abdominal pain with RUQ tenderness. #Acute Biliary colic, CT reported Gallstones , patient is evaluated by the surgeon , will go to OR in am for possible lap.chol. as per discussion with dr. Dominguez. #elevated AST likely due to ETOH use last night, will trend in the AM #HTN continue home medication tenormin 25mg #HLD continue lipitor hold the asa. #DVT: lovenox
[2017-07-13] MEDS ORDERED: ONDANSETRON 4 MG/2 ML VIAL IVPUSH PRN (15:48)
[2017-07-13] MEDS ORDERED: ATORVASTATIN CA 20 MG TABLET (FP) PO SCH (22:00)
[2017-07-14] MEDS ORDERED: ACETAMINOPHEN 1000 MG/100 ML VIAL (NON FORMULARY) IVPB ONE (06:54)
[2017-07-14] MEDS ORDERED: PANTOPRAZOLE SODIUM 40 MG VIAL IVPUSH ONE (06:54)
[2017-07-14] MEDS ORDERED: PANTOPRAZOLE 40 MG TABLET (FP) PO SCH (07:00)
[2017-07-14] MEDS ORDERED: PROPOFOL 20 ML ONE (08:17)
[2017-07-14] MEDS ORDERED: MIDAZOLAM HCL 2 MG/2 ML SINGLE DOSE VIAL ONE (08:17)
[2017-07-14] MEDS ORDERED: fentaNYL CITRATE 250 MCG/5 ML VIAL ONE (08:17)
[2017-07-14] MEDS ORDERED: ROCURONIUM BROMIDE 50 MG/5 ML VIAL ONE ×2 (08:17→09:23)
[2017-07-14] MEDS ORDERED: BUPIVACAINE HCL/PF 0.5% (5MG/ML) 10 ML VIAL ONE (08:30)
[2017-07-14] MEDS ORDERED: CEFOXITIN SODIUM 1 GM IVPB ONE (08:30)
[2017-07-14] MEDS ORDERED: LIDOCAINE HCL/PF 2% SDV 5ML VIAL ONE (08:37)
[2017-07-14] MEDS ORDERED: ETOMIDATE 20 MG/10 ML AMPUL IVPUSH ONE (08:37)
[2017-07-14] MEDS ORDERED: ONDANSETRON 4 MG/2 ML VIAL ONE ×2 (08:42→11:14)
[2017-07-14] MEDS ORDERED: DEXAMETHASONE SOD PHOSPHATE 4 MG/1 ML VIAL ONE (08:42)
[2017-07-14] MEDS ORDERED: cefOXitin SODIUM 1 GM VIAL (RESTRICTED TO ID) IVPB ONE (08:48)
[2017-07-14] MEDS ORDERED: ATENOLOL 25 MG TABLET (FP) PO SCH (10:00)
[2017-07-14] MEDS ORDERED: PATIENT'S OWN MEDICATION (NON-FORMULARY) (Omeprazole 40 MG) PO SCH (10:00)
[2017-07-14] MEDS ORDERED: THROMBIN (BOVINE) 5,000 UNIT VIAL TP ONE ×2 (11:04→11:10)
[2017-07-14] MEDS ORDERED: GELATIN, ABSORBABLE 100 EACH SPONGE TP ONE (11:09)
[2017-07-14] MEDS ORDERED: GLYCOPYRROLATE 0.2 MG/1 ML VIAL ONE (11:14)
[2017-07-14] MEDS ORDERED: NEOSTIGMINE METHYLSULFATE 0.5 MG/ML - 10 ML MDV ONE (11:14)
[2017-07-14] MEDS ORDERED: ONDANSETRON 4 MG/2 ML VIAL IVPUSH PRN ×2 (12:07→12:43)
--- NOTE | 2017-07-14 12:08 | SURG ---
Surgery Engineering Design Supervisor Note Engineering Design Supervisor: Lizette Mon PA-C Date of Service: 07/14/17 Diagnosis: acute cholecystitis, cholelithiasis Procedure: Laparoscopic cholecystectomy converted to open cholecystectomy I was present for the entirety of the operative procedure. For further detail, please refer to operative report. Visit type - Case Type Case Type: ED Admission - Emergency Emergency Visit: Yes ED Registration Date: 07/13/17 Care time: The patient presented to the Emergency Department on the above date and was hospitalized for further evaluation of their emergent condition. - New patient This patient is new to me today: Yes Date on this admission: 07/14/17
[2017-07-14] MEDS ORDERED: HYDROmorphone *PCA* 10MG/50ML DISP.SYRIN PCA ONE (12:14)
--- NOTE | 2017-07-14 12:14 | OP ---
Operative Note - Note: Operative Date: 07/14/17 Pre-Operative Diagnosis: cholecystitis Operation: laparoscopic cholecystectomy converted to open cholecystectomy Findings: During laparoscopy a well scarred in intra-hepatic gallbladder with aberrant vascular anatomy. Bleeding was ecountered. Replaced right hepatic from the the Superior Mesenteric Artery is likely variant. surgical hemostasis was achieved. Post-Operative Diagnosis: Same as Pre-op Surgeon: Samson Dominguez Flight Nurse: Lizette Mon (Del Coronel MD and Jason Rios DO) Anesthesiologist/TEACHER OF THE DEAF/HARD OF HEARING: Sukhjinder Woodall Anesthesia: General Specimens Removed: gallbladder Estimated Blood Loss (mls): 1,300 Drains & Tubes with Location: Marvin Thomas size 10 flat -- RUQ infraheptic, jansen, NGT Drains, Volume Out (mls): 200 (jansen) Blood Volume Replaced (mls): 500 Fluid Volume Replaced (mls): 2,000 Operative Report Dictated: Yes
[2017-07-14] MEDS ORDERED: HYDROmorphone *PCA* 10MG/50ML DISP.SYRIN PCA SCH (12:15)
[2017-07-14] MEDS ORDERED: LACTATED RINGERS SOLUTION 1,000 ML IV SCH (12:15)
[2017-07-14] MEDS: HYDROmorphone *PCA* 10MG/50ML DISP.SYRIN PCA SCH (12:20)
[2017-07-14] MEDS: LACTATED RINGERS SOLUTION 1,000 ML IV SCH (12:20)
[2017-07-14] MEDS ORDERED: ACETAMINOPHEN 325 MG TABLET (FP) PO PRN (12:43)
[2017-07-14] MEDS ORDERED: SIMETHICONE 40 MG/0.6 ML BOTTLE PO PRN (12:43)
[2017-07-14 12:56] LABS: BASO % 0.2 % (0-2.0); HEMOGLOBIN 13.7 GM/dL (11.7-16.9); LYMPH % 6.9 % (8-40); MCH 32.3 pg (25.7-33.7); MCHC 34.2 g/dl (32.0-35.9); MEAN CELL VOLUME 94.6 fl (80-96); MEAN PLT VOLUME 7.7 fl (7.5-11.1); MONO % 4.2 % (3.8-10.2); NEUT % 88.7 % (42.8-82.8); PLATELET COUNT 212 K/MM3 (134-434); RBC 4.23 M/mm3 (4.00-5.60); RDW 13.5 % (11.9-15.9); WHITE BLOOD COUNT 17.5 K/mm3 (4.0-10.0)
[2017-07-14 13:12] LABS: INR 1.57 (0.82-1.09); PROTHROMBIN TIME (PATIENT) 17.7 SEC (9.7-13.0)
[2017-07-14 13:26] LABS: ALBUMIN 2.4 g/dl (3.4-5.0); ANION GAP 9 (8-16); BLOOD UREA NITROGEN 12 mg/dL (7-18); CHLORIDE 110 mmol/L (98-107); CO2 24 mmol/L (21-32); CREATININE 0.7 mg/dL (0.7-1.3); GLUCOSE,RANDOM 178 mg/dL (74-106); POTASSIUM 4.6 mmol/L (3.5-5.1); SGOT/AST 80 U/L (15-37); SGPT/ALT 78 U/L (12-78); SODIUM 143 mmol/L (136-145)
[2017-07-14 13:30] LABS: ALK PHOS 40 U/L (45-117); BILIRUBIN,TOTAL 2.9 mg/dL (0.2-1.0); TOT PROT 4.4 g/dl (6.4-8.2)
--- NOTE | 2017-07-14 13:51 | PN ---
Teaching Attending Note Name of Resident: Monik Napier ATTENDING PHYSICIAN STATEMENT I saw and evaluated the patient. I reviewed the resident's note and discussed the case with the resident. I agree with the resident's findings and plan as documented. SUBJECTIVE: Pt seen and examined in the PACU. Briefly, 72yo male with h/o HTN, hyperlipidemia, h/o DVT/PE who was admitted for abdominal pain. Tmax 100.4, found to have acute cholecystitis. Now s/p laparoscopic cholecystectomy converted to open, complicated by intraop bleeding, estimated blood loss 1L. Given 2 units PRBC, minimal urine output. 100mL after jansen placement and 15 mL after 5L crystalloid replacement. Denies shortness of breath or chest pain. No abdominal pain, nausea or vomiting. OBJECTIVE: Last Vital Signs Temp Pulse Resp BP Pulse Ox 98.4 F 92 H 13 112/54 93 L 07/14/17 12:02 07/14/17 12:02 07/14/17 12:02 07/14/17 12:02 07/14/17 12:02 Intake & Output 07/11/17 07/12/17 07/13/17 07/14/17 23:59 23:59 23:59 23:59 Intake Total 0 6460 Output Total 850 1360 Balance -850 5100 Weight 73.482 kg Gen: mildly tachypneic at rest Heart: RRR Lung: decreased breath sounds at the bases Abd: soft, dressings dry, +drain with serosanguinous fluid Ext: no edema CBC, BMP 07/14/17 12:15 07/14/17 12:15 Active Medications Acetaminophen (Tylenol -) 650 mg PO Q8H PRN PRN Reason: PAIN LEVEL 4 - 6 Atenolol (Tenormin -) 25 mg PO DAILY [facility] Atorvastatin Calcium (Lipitor -) 20 mg PO HS [facility] Chlorhexidine Gluconate (Hibiclens For Decolonization -) 1 applic TP HS [facility] Hydromorphone HCl (Dilaudid Body Work Auto Trimmer -) 10 mg MAYONNAISE MIXER MAYONNAISE MIXER KALEIGH PRN Reason: Protocol Stop: 07/17/17 13:14 Lactated Ringer's (Lactated Ringers Solution) 1,000 mls @ 125 mls/hr IV ASDIR KALEIGH Cefoxitin Sodium 1 gm/ Sodium (Chloride) 100 mls @ 200 mls/hr IVPB Q6H-IV [facility] PRN Reason: Protocol Stop: 07/15/17 14:59 Piperacillin Sod/Tazobactam (Sod 4.5 gm/ Dextrose) 100 mls @ 200 mls/hr IVPB Q8H-IV [facility] PRN Reason: Protocol Mupirocin (Bactroban Ointment (For Decolonization) -) 1 applic NS BID [facility] Stop: 07/19/17 21:59 Ondansetron HCl (Zofran Injection) 4 mg IVPUSH Q6H PRN PRN Reason: NAUSEA Pantoprazole Sodium (Protonix -) 40 mg PO ACBK [facility] Polyethylene Glycol (Miralax (For Daily Use) -) 17 gm PO DAILY [facility] Simethicone (Mylicon Liquid -) 40 mg PO QID PRN PRN Reason: INDIGESTION ASSESSMENT AND PLAN: Acute Cholecystitis Sepsis s/p Open Cholecystectomy Acute Blood Loss Anemia HTN Hyperlipidemia h/o DVT/PE - IV antibiotics - f/u cultures - IVF resuscitation - monitor urine output, creatinine - pain control - incentive spirometry - O2 to keep SpO2 >90% - monitor H/H - transfuse as needed - mechanical DVT prophylaxis - post op ICU monitoring
--- NOTE | 2017-07-14 13:54 | PN ---
<Oli Munoz - Last Filed: 07/14/17 14:18> Physical Exam: SUBJECTIVE: Patient seen and examined Patient to OR today for aamir alcantara. OBJECTIVE: Vital Signs Period Temp Pulse Resp BP Sys/Gallagher Pulse Ox Last 24 Hr 98.4 F-100.4 F 64-92 13-20 97-112/47-58 93-98 GENERAL: Awake, alert, and fully oriented, in no acute distress. HEAD: Normal with no signs of trauma. EYES: Pupils equal, round and reactive to light, extraocular movements intact, sclera anicteric, conjunctiva clear. No lid lag. EARS, NOSE, THROAT: Oropharynx clear without exudates. Moist mucous membranes. NECK: Normal range of motion, supple without lymphadenopathy, JVD, or masses. LUNGS: Breath sounds equal, clear to auscultation bilaterally. No wheezes, and no crackles. No accessory muscle use. HEART: Regular rate and rhythm, normal S1 and S2 without murmur, rub or gallop. ABDOMEN: Soft, nontender, +distended, mild engorgement of abdominal veins, normoactive bowel sounds, no guarding, no rebound, no masses. No hepatomegaly or splenomegaly. negative mc's MUSCULOSKELETAL: Normal range of motion at all joints. No bony deformities or tenderness. No CVA tenderness. UPPER EXTREMITIES: 2+ radial pulses, warm, well-perfused. No cyanosis. No clubbing. No peripheral edema. LOWER EXTREMITIES: warm, well-perfused. No calf tenderness. No peripheral edema. NEUROLOGICAL: Cranial nerves II-XII intact. Normal speech. Normal gait. 5/5 hand crankshaft balancer, 5/5 hip/knee extension and flexion. PSYCHIATRIC: Cooperative. Good eye contact. Appropriate mood and affect. SKIN: Warm, dry, normal turgor, no rashes or lesions noted, normal capillary refill. Laboratory Results - last 24 hr 07/13/17 07/14/17 07/14/17 06:16 09:30 12:15 WBC 17.5 H D RBC 4.23 Hgb 13.7 D Hct 40.0 MCV 94.6 MCH 32.3 MCHC 34.2 RDW 13.5 Plt Count 212 MPV 7.7 Neutrophils % 88.7 H D Lymphocytes % 6.9 L D Monocytes % 4.2 Eosinophils % 0.0 D Basophils % 0.2 PT with INR INR Sodium Potassium Chloride Carbon Dioxide Anion Gap BUN Creatinine Creat Clearance w eGFR Random Glucose Calcium Total Bilirubin AST ALT Alkaline Phosphatase Troponin I Total Protein Albumin Blood Type A POSITIVE A POSITIVE Antibody Screen Negative Crossmatch IS Only See Detail 07/14/17 07/14/17 12:15 12:15 WBC RBC Hgb Hct MCV MCH MCHC RDW Plt Count MPV Neutrophils % Lymphocytes % Monocytes % Eosinophils % Basophils % PT with INR 17.70 H INR 1.57 H D Sodium 143 Potassium 4.6 Chloride 110 H Carbon Dioxide 24 Anion Gap 9 BUN 12 Creatinine 0.7 Creat Clearance w eGFR > 60 Random Glucose 178 H D Calcium 7.0 L D Total Bilirubin 2.9 H D AST 80 H D ALT 78 D Alkaline Phosphatase 40 L D Troponin I 0.02 Total Protein 4.4 L D Albumin 2.4 L D Blood Type Antibody Screen Crossmatch IS Only Active Medications Generic Name Dose Route Start Last Admin Trade Name Freq PRN Reason Stop Dose Admin Acetaminophen 650 mg 07/14/17 12:43 Tylenol - PO Q8H PRN PAIN LEVEL 4 - 6 Atenolol 25 mg 07/15/17 10:00 Tenormin - PO DAILY [facility] Atorvastatin Calcium 20 mg 07/14/17 22:00 Lipitor - PO HS [facility] Chlorhexidine Gluconate 1 applic 07/14/17 22:00 Hibiclens For Decolonization - TP HS [facility] Hydromorphone HCl 10 mg 07/14/17 13:15 Dilaudid Facing Baster - NAIL TECH 07/17/17 13:14 NAIL TECH [facility] Protocol Lactated Ringer's 1,000 mls @ 125 mls/hr 07/14/17 12:43 Lactated Ringers Solution IV ASDIR [facility] Cefoxitin Sodium 1 gm/ Sodium 100 mls @ 200 mls/hr 07/14/17 15:00 Chloride IVPB 07/15/17 14:59 Q6H-IV [facility] Protocol Mupirocin 1 applic 07/14/17 22:00 Bactroban Ointment (For Decolonization) - NS 07/19/17 21:59 BID [facility] Ondansetron HCl 4 mg 07/14/17 12:43 Zofran Injection IVPUSH Q6H PRN NAUSEA Pantoprazole Sodium 40 mg 07/15/17 07:00 Protonix - PO ACBK [facility] Polyethylene Glycol 17 gm 07/15/17 10:00 Miralax (For Daily Use) - PO DAILY [facility] Simethicone 40 mg 07/14/17 12:43 Mylicon Liquid - PO QID PRN INDIGESTION ASSESSMENT/PLAN: 72 yr old man with abdominal pain admitted for abdominal pain. #abominal pain, POD 1 s/p cholecystectomy -Cefoxitin/Zosyn for abx coverage -protonix 40 mg po acbk -miralax daily -LR @ 125 cc/hr -Dilaudid NAIL TECH -simethicone/zofran/tylenol -Surgery/ID consult #elevated AST , uptrending -continue to monitor s/p cholecystectomy #HTN - continue home medication tenormin 25mg #HLD - continue lipitor #FEN/GI -LR @ 125 cc/hr -wnl -NPO Visit type - Emergency Visit Emergency Visit: Yes ED Registration Date: 07/13/17 Care time: The patient presented to the Emergency Department on the above date and was hospitalized for further evaluation of their emergent condition. - New Patient This patient is new to me today: Yes Date on this admission: 07/14/17 - Critical Care Critical Care patient: No <Neeraj Ruggiero - Last Filed: 07/14/17 19:20> Physical Exam: POD #0 s/p Laparoscopic cholecystectomy converted to open cholecystectomy, discussed with As per Dr. Dominguez Documentation: during laparoscopy a well scarred in intra- hepatic gallbladder with aberrant vascular anatomy. Bleeding was ecountered. Replaced right hepatic from the the Superior Mesenteric Artery is likely variant. surgical hemostasis was achieved. Vital Signs Temperature 98.1 F 07/14/17 15:15 Pulse Rate 82 07/14/17 18:00 Respiratory Rate 10 L 07/14/17 18:00 Blood Pressure 134/74 07/14/17 18:00 O2 Sat by Pulse Oximetry (%) 99 07/14/17 16:00 CBCD WBC 14.3 K/mm3 (4.0-10.0) H 07/14/17 17:30 RBC 3.94 M/mm3 (4.00-5.60) L 07/14/17 17:30 Hgb 13.0 GM/dL (11.7-16.9) 07/14/17 17:30 Hct 37.4 % (35.4-49) 07/14/17 17:30 MCV 94.8 fl (80-96) 07/14/17 17:30 MCHC 34.9 g/dl (32.0-35.9) 07/14/17 17:30 RDW 13.8 % (11.9-15.9) 07/14/17 17:30 Plt Count 188 K/MM3 (134-434) 07/14/17 17:30 MPV 7.9 fl (7.5-11.1) 07/14/17 17:30 CMP Sodium 143 mmol/L (136-145) 07/14/17 12:15 Potassium 4.6 mmol/L (3.5-5.1) 07/14/17 12:15 Chloride 110 mmol/L (98-107) H 07/14/17 12:15 Carbon Dioxide 24 mmol/L (21-32) 07/14/17 12:15 Anion Gap 9 (8-16) 07/14/17 12:15 BUN 12 mg/dL (7-18) 07/14/17 12:15 Creatinine 0.7 mg/dL (0.7-1.3) 07/14/17 12:15 Creat Clearance w eGFR > 60 (>60) 07/14/17 12:15 Random Glucose 178 mg/dL (74-106) H D 07/14/17 12:15 Calcium 7.0 mg/dL (8.5-10.1) L D 07/14/17 12:15 Total Bilirubin 2.9 mg/dL (0.2-1.0) H D 07/14/17 12:15 AST 80 U/L (15-37) H D 07/14/17 12:15 ALT 78 U/L (12-78) D 07/14/17 12:15 Alkaline Phosphatase 40 U/L (45-117) L D 07/14/17 12:15 Total Protein 4.4 g/dl (6.4-8.2) L D 07/14/17 12:15 Albumin 2.4 g/dl (3.4-5.0) L D 07/14/17 12:15 CARDIAC ENZYMES Troponin I 0.02 ng/ml (0.00-0.05) 07/14/17 12:15 Current Medications Generic Name Dose Route Start Last Admin Trade Name Freq PRN Reason Stop Dose Admin Acetaminophen 1,000 mg 07/14/17 16:57 Ofirmev Injection - IVPB Q6H PRN PAIN LEVEL 1-3 Atenolol 25 mg 07/15/17 10:00 Tenormin - PO DAILY [facility] Atorvastatin Calcium 20 mg 07/14/17 22:00 Lipitor - PO HS [facility] Chlorhexidine Gluconate 1 applic 07/14/17 22:00 Hibiclens For Decolonization - TP HS [facility] Hydromorphone HCl 10 mg 07/14/17 13:15 07/14/17 12:20 Dilaudid Facing Baster - NAIL TECH 07/17/17 13:14 10 mg NAIL TECH [facility] Administration Protocol Lactated Ringer's 1,000 mls @ 125 mls/hr 07/14/17 12:43 07/14/17 12:20 Lactated Ringers Solution IV 265 mls ASDIR K[facility]IGH Administration Piperacillin Sod/Tazobactam 100 mls @ 200 mls/hr 07/14/17 14:00 07/14/17 14: 20 Sod 4.5 gm/ Dextrose IVPB 100 mls Q8H-IV [facility] Administration Protocol Mupirocin 1 applic 07/14/17 22:00 Bactroban Ointment (For Decolonization) - NS 07/19/17 21:59 BID [facility] Ondansetron HCl 4 mg 07/14/17 12:43 Zofran Injection IVPUSH Q6H PRN NAUSEA Pantoprazole Sodium 40 mg 07/15/17 10:00 Protonix Iv IVPUSH DAILY [facility] Polyethylene Glycol 17 gm 07/15/17 10:00 Miralax (For Daily Use) - PO DAILY [facility] Simethicone 40 mg 07/14/17 12:43 Mylicon Liquid - PO QID PRN INDIGESTION Home Medications Medication Instructions Recorded Atenolol [Tenormin] 25 mg PO DAILY 09/18/12 Aspirin 162 mg PO DAILY 07/13/17 Atorvastatin Ca [Lipitor] 20 mg PO HS 07/13/17 Omeprazole 40 mg PO DAILY 07/13/17
[2017-07-14] MEDS: PIPERACILLIN/TAZOB 4.5 GM 4.5 GM in DEXTROSE 5%-WATER 100 ML IVPB SCH ×2 (14:20→21:17)
--- NOTE | 2017-07-14 14:23 | CONSULT ---
Consultation: CONSULT REQUEST: We have been asked to medically evaluate this patient for post- op monitoring. HISTORY OF PRESENT ILLNESS: 72M with PMH of htn, hld, DVT and PE (Right LE 11/2016, completed AC 03/2017), presented with abdominal pain, found to have acute cholecystitis, now s/p cholecystectomy (laproscopic converted to open) complicated by intra-op bleeding with estimated 1300ml blood loss. Given 2U PRBCs intra-op and 5L cystalloid replacement. Minimal UOP at this point, only 115ml total since prior to surgery. Pt seen and examined in PACU. Pt denies chest pain, sob, n/v , fever, chills. Pt denies smoking hx. PAST SURGICAL HISTORY: prostatectomy in 01/2003 due to prostate cancer, has yearly f/u @[facility] tonsilectomy "many yrs ago" decompression of L5 1993 cataract surgery yahaira 2004 colonoscopy 2 yrs ago, normal without polyps, masses REVIEW OF SYSTEMS: CONSTITUTIONAL: Absent: fever, chills, diaphoresis HEENT: Absent: rhinorrhea, nasal congestion, ear pain, eye pain CARDIOVASCULAR: Absent: chest pain, peripheral edema RESPIRATORY: Absent: cough, shortness of breath, wheezing, stridor GASTROINTESTINAL: Absent: abdominal pain, abdominal distension, nausea, vomiting, diarrhea, constipation GENITOURINARY: Absent: dysuria, frequency, urgency, hematuria SKIN: Absent: rash, itching, pallor HEMATOLOGIC/IMMUNOLOGIC: Absent: easy bleeding, easy bruising, lymphadenopathy, frequent infections NEUROLOGIC: Absent: headache, focal weakness or paresthesias PSYCHIATRIC: Absent: anxiety, depression PHYSICAL EXAMINATION Vital Signs - 24 hr 07/13/17 07/13/17 07/14/17 17:00 22:54 05:00 Temperature 100 F H 100.4 F H Pulse Rate 71 64 Respiratory 20 20 Rate Blood Pressure 97/47 108/58 O2 Sat by Pulse 98 Oximetry (%) 07/14/17 07/14/17 07/14/17 07:40 08:00 12:02 Temperature 100 F H 98.4 F Pulse Rate 72 92 H Respiratory 20 13 Rate Blood Pressure 100/54 112/54 O2 Sat by Pulse 94 L 93 L Oximetry (%) GENERAL: Awake, alert, and fully oriented, in no acute distress. HEAD: Normal with no signs of trauma. EYES: Extraocular movements intact, sclera anicteric, conjunctiva clear. No lid lag. EARS, NOSE, THROAT: Moist mucous membranes. LUNGS: Breath sounds equal, clear to auscultation bilaterally. No wheezes, and no crackles. No accessory muscle use. HEART: Regular rate and rhythm, normal S1 and S2 without murmur, rub or gallop. ABDOMEN: Soft, not distended, no guarding. Surgical dressing CDI. LISA drain with serosanguinous fluid. LOWER EXTREMITIES: Warm, well-perfused. No calf tenderness. No peripheral edema. NEUROLOGICAL: Cranial nerves II-XII grossly intact. Normal speech. PSYCHIATRIC: Cooperative. Good eye contact. Appropriate mood and affect. Laboratory Results - last 24 hr 07/13/17 07/14/17 07/14/17 06:16 09:30 12:15 WBC 17.5 H D RBC 4.23 Hgb 13.7 D Hct 40.0 MCV 94.6 MCH 32.3 MCHC 34.2 RDW 13.5 Plt Count 212 MPV 7.7 Neutrophils % 88.7 H D Lymphocytes % 6.9 L D Monocytes % 4.2 Eosinophils % 0.0 D Basophils % 0.2 PT with INR INR Sodium Potassium Chloride Carbon Dioxide Anion Gap BUN Creatinine Creat Clearance w eGFR Random Glucose Calcium Total Bilirubin AST ALT Alkaline Phosphatase Troponin I Total Protein Albumin Blood Type A POSITIVE A POSITIVE Antibody Screen Negative Crossmatch IS Only See Detail 07/14/17 07/14/17 12:15 12:15 WBC RBC Hgb Hct MCV MCH MCHC RDW Plt Count MPV Neutrophils % Lymphocytes % Monocytes % Eosinophils % Basophils % PT with INR 17.70 H INR 1.57 H D Sodium 143 Potassium 4.6 Chloride 110 H Carbon Dioxide 24 Anion Gap 9 BUN 12 Creatinine 0.7 Creat Clearance w eGFR > 60 Random Glucose 178 H D Calcium 7.0 L D Total Bilirubin 2.9 H D AST 80 H D ALT 78 D Alkaline Phosphatase 40 L D Troponin I 0.02 Total Protein 4.4 L D Albumin 2.4 L D Blood Type Antibody Screen Crossmatch IS Only Active Medications Generic Name Dose Route Start Last Admin Trade Name Freq PRN Reason Stop Dose Admin Acetaminophen 650 mg 07/14/17 12:43 Tylenol - PO Q8H PRN PAIN LEVEL 4 - 6 Atenolol 25 mg 07/15/17 10:00 Tenormin - PO DAILY [facility] Atorvastatin Calcium 20 mg 07/14/17 22:00 Lipitor - PO HS [facility] Chlorhexidine Gluconate 1 applic 07/14/17 22:00 Hibiclens For Decolonization - TP HS [facility] Hydromorphone HCl 10 mg 07/14/17 13:15 Dilaudid Connie Cleaner - TRACK MAINTAINER 07/17/17 13:14 TRACK MAINTAINER [facility] Protocol Lactated Ringer's 1,000 mls @ 125 mls/hr 07/14/17 12:43 Lactated Ringers Solution IV ASDIR [facility] Cefoxitin Sodium 1 gm/ Sodium 100 mls @ 200 mls/hr 07/14/17 15:00 Chloride IVPB 07/15/17 14:59 Q6H-IV [facility] Protocol Mupirocin 1 applic 07/14/17 22:00 Bactroban Ointment (For Decolonization) - NS 07/19/17 21:59 BID [facility] Ondansetron HCl 4 mg 07/14/17 12:43 Zofran Injection IVPUSH Q6H PRN NAUSEA Pantoprazole Sodium 40 mg 07/15/17 07:00 Protonix - PO ACBK [facility] Polyethylene Glycol 17 gm 07/15/17 10:00 Miralax (For Daily Use) - PO DAILY [facility] Simethicone 40 mg 07/14/17 12:43 Mylicon Liquid - PO QID PRN INDIGESTION ASSESSMENT/PLAN: 72M with PMH of htn, hld, DVT and PE (Right LE 11/2016, completed AC 03/2017), presented with abdominal pain, found to have acute cholecystitis, s/p cholecystectomy (laproscopic converted to open) complicated by intra-op bleeding. # sepsis 2/2 acute cholecystitis - s/p open cholecystectomy by Dr. Dominguez on 07/14 - POD #0 - post-op care per Surgery (Dr. Dominguez) - Day 1 of IV Cefoxitin - Zofran prn for nausea - incentive spirometry - Dilaudid pump and Tylenol prn for pain control - Miralax daily for bowel regimen - monitor UOP # acute blood loss anemia - monitor CBC q6hr - monitor for overt s/s of bleeding - transfuse prn # hld - continue home med of Lipitor # htn - continue home med of Tenormin # FEN/ppx - Fluids: LR @ 125 ml/hr - Electrolytes: wnl, continue to monitor - Nutrition: npo - DVT ppx with yahaira SCDs - GI ppx with Protonix Dispo: We will continue to follow the patient. Thank you for this consultative opportunity. Visit type - Emergency Visit Emergency Visit: Yes ED Registration Date: 07/13/17 Care time: The patient presented to the Emergency Department on the above date and was hospitalized for further evaluation of their emergent condition. - New Patient This patient is new to me today: Yes Date on this admission: 07/14/17 - Critical Care Critical Care patient: Yes Total Critical Care Time (in minutes): 45 Critical Care Statement: The care of this patient involved high complexity decision making to prevent further life threatening deterioration of the patient 's condition and/or to evaluate & treat vital organ system(s) failure or risk of failure.
[2017-07-14] MEDS ORDERED: CEFOXITIN SODIUM 1 GM in SODIUM CHLORIDE 100 ML IVPB SCH (15:00)
[2017-07-14] MEDS ORDERED: ACETAMINOPHEN 1000 MG/100 ML VIAL (NON FORMULARY) IVPB PRN (16:57)
[2017-07-14 18:45] LABS: HEMATOCRIT 37.4 % (35.4-49); LYMPH % 2.6 % (8-40); MCHC 34.9 g/dl (32.0-35.9); MEAN CELL VOLUME 94.8 fl (80-96); MEAN PLT VOLUME 7.9 fl (7.5-11.1); MONO % 5.3 % (3.8-10.2); NEUT % 92.1 % (42.8-82.8); PLATELET COUNT 188 K/MM3 (134-434); RBC 3.94 M/mm3 (4.00-5.60); RDW 13.8 % (11.9-15.9); WHITE BLOOD COUNT 14.3 K/mm3 (4.0-10.0)
--- NOTE | 2017-07-14 20:39 | OP ---
DATE OF OPERATION: 07/14/2017 PREOPERATIVE DIAGNOSIS: Cholecystitis. POSTOPERATIVE DIAGNOSIS: Cholecystitis. PROCEDURE: Laparoscopic cholecystectomy converted to open cholecystectomy. ATTENDING SURGEON: Samson Dominguez MD IP ARCHITECT: YEIMI Nassar. Also, in the case, Del Coronel MD and Jason Rios DO. ANESTHESIOLOGIST: Sukhjinder Woodall MD ANESTHESIA: General. SPECIMEN: Gallbladder. ESTIMATED BLOOD LOSS: 1300 mL REPLACED: Packed red cells 500 mL. INTRAVENOUS FLUIDS: Lactated Ringer's 2000. DRAIN: Marvin-Thomas size 10 flat, right upper quadrant, which was infrahepatic, and Schwartz and NG tube upon leaving the operating room. BRIEF FINDINGS: During the laparoscopic case, a well-scarred, intrahepatic gallbladder with an aberrant vascular anatomy was encountered. Bleeding from the medial aspect of the dissection plane the replaced right hepatic from the superior mesenteric is the likely variant. Open obtained surgical hemostasis by the end of the case. INDICATION: Patient is a 72-year-old male who presents with cholecystitis, first attack. Had a CT scan that revealed an inflamed gallbladder and multiple stones. He was counseled regarding risks, benefits, and alternatives of surgical removal of the gallbladder, signed informed consent, and was taken for the procedure. DESCRIPTION OF PROCEDURE: Patient was brought to the operating room, positioned in supine position on the operating table with the right arm tucked and left arm extended 90 degrees perpendicular to the body's axis. Bilateral lower extremities had SCDs placed to compression. Patient was then induced with general anesthesia, endotracheally intubated. Anterior abdominal wall was shaved, prepped, and draped in standard surgical fashion. With the planned laparoscopic approach, we began after a formal timeout identifying the operative procedure and site. We began with a supraumbilical incision, curvilinear, in order to address the hernia which was at the umbilicus, which was also planned for primary repair. Incision was made with a 15-blade scalpel, deepened and widened through the subcutaneous tissue. The umbilical hernia was identified, and the preperitoneal fat that was in the hernia defect was debrided. We then installed a 12-mm trocar, Kenroy style, and established a pneumoperitoneum to 15 mmHg. At which point, we began to inspect the right upper quadrant. Additional access ports, 5-mm, were placed at the xiphoid location as well as the right lateral abdomen in 2 places. The gallbladder's dome appeared scarred into the omentum, and when it was freed, there was a small amount of bleeding, venous ooze, from the omentum itself. We then began to retract the gallbladder cranially towards the left upper quadrant. As we proceeded down with our dissection towards the infundibulum, it was clear that there was a very thin-wall segment at the infundibulum where there was a stone that was near eroding through the wall of the gallbladder. It was grasped, and attempts were made to free additionally the omentum which was adherent to this intrahepatic gallbladder. Upon sweeping towards the triangle of Calot, there was bleeding encountered from what appeared to be a large branch. Decision was made at this point to open to better define anatomy and obtain surgical hemostasis. We proceeded with 2 fingerbreadths below the costal margin an incision with a 10-blade scalpel. It was made at the skin and carried through with Bovie cautery to the level of the anterior fascia. The fascia was identified and divided. The rectus muscle on the right was also divided down to the peritoneum. Pneumoperitoneum was then relieved and laparoscopic ports retrieved from the abdomen. The umbilical port was ablated with a [id number] 0 Vicryl to primarily repair it. We then proceeded with identification of the liver border. A large amount of clot was evacuated from the abdomen. At which point, we proceeded then with dome-down dissection of the gallbladder towards the cystic structures. We completed the dissection with a small amount of blood loss from the actual hepatic bed. A sponge stick was used to compress the bleeding at the border of the bud hepatis. There was an apparent aberrant branch that was emanating from just posterior to the duodenal cap and the edge of the stomach. This was controlled with vascular bulldogs, and when it could be identified, there appeared to be a hole in the venous structure. It was clipped with large clips and then suture ligated and sacrificed. We proceeded then with clearing the remainder of the packs from the abdomen. Above the liver, inspecting the liver, its capsule appeared shiny, and it appeared well perfused. We proceeded then with additional irrigation of the site. The gallbladder was passed off of the field as a surgical specimen. The decision was made to leave a LISA drain in the area. Gelfoam additionally was packed over the ligated artery for additional hemostasis. We then left a LISA size 10 flat through one of the lateral right abdominal trocar sites and secured it to the skin with a 2-0 nylon. The abdomen was once again inspected for hemostasis, and then, we began to close the peritoneum first with 2-0 Vicryl in running locking fashion, followed by anterior fascial closure in layers with 0 Prolene in figure-of-8's. The skin was cleaned and stapled. The sterile dressing was placed. The patient was awoken from general anesthesia, having tolerated the procedure well, and extubated in the operating room, was stable throughout. He did receive a transfusion, replacement of 2 units of packed cells, in addition to multiple liters of crystalloid. MD DOUGLAS Watson/[id number]
--- NOTE | 2017-07-14 20:54 | CON.ID ---
Consult Consult Specialty:: infectious diseases Referred by:: Reason for Consultation:: cholecystitis,post op - History of Present Illness Chief Complaint: abd pain History of Present Illness: 72 yo man PMH HTN, HLD, hx of right leg DVT and v/l PE(dx 11/2016, completed AC tx in Mar 2017), came in with acute onset abdominal pain since this morning early at about 1 am. patient had gone to a restaurant last night and had a meal in the evening and then went to bed. 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 . At 1am he woke up with diffuse abdominal pain, had a non bloody bowel movement , the pain was 10/10, nonradiating with no alleviating or exacerbation. factors. no vomiting. . CT scan shows and inflammed gallbladder and gallstones. patient was seen by surgical team and patient was taken to the operating room lap choley was started which was converted to open and the operative note was noted of other findings which were found intraoperatively patient currently post op in icu - History Source History Provided By: Patient, Medical Record Limitations to Obtaining History: Clinical Condition - Past Medical History Cardio/Vascular: Yes: Deep Vein Thrombosis, HTN, Hyperlipdemia Pulmonary: Yes: Pulmonary Embolus - Alcohol/Substance Use Hx Alcohol Use: No - Smoking History Smoking history: Former smoker Have you smoked in the past 12 months: No Aproximately how many cigarettes per day: 0 - Social History History of Recent Travel: No Home Medications - Allergies Allergies/Adverse Reactions: Allergies Allergy/AdvReac Type Severity Reaction Status Date / Time No Known Allergies Allergy Verified 07/13/17 02:45 - Home Medications Home Medications: Ambulatory Orders Atenolol [Tenormin] 25 mg PO DAILY 09/18/12 Aspirin 162 mg PO DAILY 07/13/17 Atorvastatin Ca [Lipitor] 20 mg PO HS 07/13/17 Omeprazole 40 mg PO DAILY 07/13/17 Review of Systems - Review of Systems Constitutional: reports: No Symptoms Eyes: reports: No Symptoms HENT: reports: No Symptoms Cardiovascular: reports: No Symptoms Respiratory: reports: No Symptoms Gastrointestinal: reports: Abdominal Pain Genitourinary: reports: No Symptoms Musculoskeletal: reports: No Symptoms Integumentary: reports: No Symptoms Neurological: reports: No Symptoms Endocrine: reports: No Symptoms Hematology/Lymphatic: reports: No Symptoms Psychiatric: reports: No Symptoms Physical Exam Vital Signs: Vital Signs Temperature 98.1 F 07/14/17 15:15 Pulse Rate 85 07/14/17 20:00 Respiratory Rate 15 07/14/17 20:00 Blood Pressure 113/76 07/14/17 20:00 O2 Sat by Pulse Oximetry (%) 95 07/14/17 20:08 Constitutional: Yes: Well Nourished, Calm, Other (post op) Eyes: Yes: Conjunctiva Clear HENT: Yes: Atraumatic, Normocephalic Neck: Yes: Supple, Trachea Midline Cardiovascular: Yes: Regular Rate and Rhythm Respiratory: Yes: Poor Air Entry (at the bases) Gastrointestinal: Yes: Other (absent bowel sounds drain in place) Renal/: Yes: Schwartz Present Musculoskeletal: Yes: WNL Extremities: Yes: WNL Wound/Incision: Yes: Dressing Dry and Intact Neurological: Yes: Alert, Oriented Psychiatric: Yes: Alert, Oriented Labs: CBC, BMP 07/14/17 17:30 07/14/17 12:15 Imaging - Results X-ray: Report Reviewed, Image Reviewed Cat Scan: Report Reviewed, Image Reviewed Assessment/Plan Problem List - Problems (1) Cholecystitis Code(s): K81.9 - CHOLECYSTITIS, UNSPECIFIED (2) Abdominal pain Code(s): R10.9 - UNSPECIFIED ABDOMINAL PAIN Qualifiers: Abdominal location: unspecified location Qualified Code(s): R10.9 - Unspecified abdominal pain (3) Cholelithiasis Code(s): K80.20 - CALCULUS OF GALLBLADDER W/O CHOLECYSTITIS W/O OBSTRUCTION Qualifiers: Cholelithiasis location: gallbladder Cholecystitis presence: without cholecystitis Biliary obstruction: without biliary obstruction Qualified Code(s): K80.20 - Calculus of gallbladder without cholecystitis without obstruction (4) UTI (lower urinary tract infection) Code(s): N39.0 - URINARY TRACT INFECTION, SITE NOT SPECIFIED plan hydration abx started close watch on wbc icu on supportive employment case manager vital and h and h watch for drainage and fever rest as per surgery and icu cc time 40 min
[2017-07-14] MEDS: ATORVASTATIN CA 20 MG TABLET (FP) PO SCH (21:18)
[2017-07-14] MEDS: MUPIROCIN 2% TOPICAL OINTMENT FOR DECOLONIZATION NS SCH (21:19)
[2017-07-14] MEDS: CHLORHEXIDINE GLUCONATE 4% CLEANSER FOR DECOLONIZATION TP SCH (22:00)
[2017-07-15] MEDS ORDERED: PIPERACILLIN/TAZOBACTAM 4.5 GM VIAL IVPB ONE ×3 (00:47→18:22)
[2017-07-15] MEDS ORDERED: DEXTROSE 5%-WATER 100 ML IVPB ONE ×3 (00:48→18:22)
[2017-07-15] MEDS: PIPERACILLIN/TAZOB 4.5 GM 4.5 GM in DEXTROSE 5%-WATER 100 ML IVPB SCH ×3 (02:10→18:27)
[2017-07-15 06:21] LABS: HEMATOCRIT 31.5 % (35.4-49); HEMOGLOBIN 11.3 GM/dL (11.7-16.9); LYMPH % 4.1 % (8-40); MCH 33.5 pg (25.7-33.7); MCHC 35.9 g/dl (32.0-35.9); MEAN CELL VOLUME 93.4 fl (80-96); MEAN PLT VOLUME 7.9 fl (7.5-11.1); MONO % 8.5 % (3.8-10.2); NEUT % 87.4 % (42.8-82.8); PLATELET COUNT 155 K/MM3 (134-434); RBC 3.37 M/mm3 (4.00-5.60); RDW 13.6 % (11.9-15.9); WHITE BLOOD COUNT 12.1 K/mm3 (4.0-10.0)
[2017-07-15 06:32] LABS: INR 1.51 (0.82-1.09); PROTHROMBIN TIME (PATIENT) 17.1 SEC (9.7-13.0)
[2017-07-15 06:55] LABS: ALBUMIN 2.2 g/dl (3.4-5.0); ANION GAP 4 (8-16); BLOOD UREA NITROGEN 16 mg/dL (7-18); CALCIUM 7.4 mg/dL (8.5-10.1); CHLORIDE 107 mmol/L (98-107); CO2 29 mmol/L (21-32); GLUCOSE,RANDOM 132 mg/dL (74-106); MAGNESIUM 1.6 mg/dL (1.8-2.4); POTASSIUM 4.3 mmol/L (3.5-5.1); SODIUM 140 mmol/L (136-145)
[2017-07-15 07:00] LABS: ALK PHOS 35 U/L (45-117); BILIRUBIN,TOTAL 2.5 mg/dL (0.2-1.0); CREATININE 0.7 mg/dL (0.7-1.3); PHOSPHOROUS 2.7 mg/dL (2.5-4.9); SGOT/AST 42 U/L (15-37); SGPT/ALT 53 U/L (12-78); TOT PROT 4.4 g/dl (6.4-8.2)
[2017-07-15] MEDS ORDERED: PANTOPRAZOLE 40 MG TABLET (FP) PO SCH (07:00)
[2017-07-15] MEDS ORDERED: MAGNESIUM 1GM/D5W 100ML - 100 ML IVPB IVPB ONE (09:00)
--- NOTE | 2017-07-15 09:06 | PN ---
Teaching Attending Note Name of Resident: Oli Munoz ATTENDING PHYSICIAN STATEMENT I saw and evaluated the patient. I reviewed the resident's note and discussed the case with the resident. I agree with the resident's findings and plan as documented. SUBJECTIVE: Patient is feeling better in ICU, no fever or chills, no shortness of breath. OBJECTIVE: Vital Signs Temperature 98.1 F 07/14/17 15:15 Pulse Rate 82 07/15/17 08:00 Respiratory Rate 16 07/15/17 08:00 Blood Pressure 120/68 07/15/17 08:00 O2 Sat by Pulse Oximetry (%) 95 07/14/17 20:08 GENERAL: Awake, alert, and fully oriented, in no acute distress. LUNGS: Breath sounds equal, clear to auscultation bilaterally. No wheezes, and no crackles. No accessory muscle use. HEART: Regular rate and rhythm, normal S1 and S2 without murmur, rub or gallop. ABDOMEN: Soft, not distended, no guarding. Surgical dressing in place. LISA drain with dark fluid. EXTREMITIES: Warm, well-perfused. No calf tenderness. No peripheral edema. PSYCHIATRIC: Cooperative. Good eye contact. Appropriate mood and affect. Neuro: AAOx3, NFD : Positive for Schwartz , creamy color as per nurse is from tubing. CBCD WBC 12.1 K/mm3 (4.0-10.0) H 07/15/17 05:10 RBC 3.37 M/mm3 (4.00-5.60) L 07/15/17 05:10 Hgb 11.3 GM/dL (11.7-16.9) L D 07/15/17 05:10 Hct 31.5 % (35.4-49) L D 07/15/17 05:10 MCV 93.4 fl (80-96) 07/15/17 05:10 MCHC 35.9 g/dl (32.0-35.9) 07/15/17 05:10 RDW 13.6 % (11.9-15.9) 07/15/17 05:10 Plt Count 155 K/MM3 (134-434) 07/15/17 05:10 MPV 7.9 fl (7.5-11.1) 07/15/17 05:10 CMP Sodium 140 mmol/L (136-145) 07/15/17 05:10 Potassium 4.3 mmol/L (3.5-5.1) 07/15/17 05:10 Chloride 107 mmol/L (98-107) 07/15/17 05:10 Carbon Dioxide 29 mmol/L (21-32) D 07/15/17 05:10 Anion Gap 4 (8-16) L 07/15/17 05:10 BUN 16 mg/dL (7-18) D 07/15/17 05:10 Creatinine 0.7 mg/dL (0.7-1.3) 07/15/17 05:10 Creat Clearance w eGFR > 60 (>60) 07/15/17 05:10 Random Glucose 132 mg/dL (74-106) H D 07/15/17 05:10 Calcium 7.4 mg/dL (8.5-10.1) L 07/15/17 05:10 Total Bilirubin 2.5 mg/dL (0.2-1.0) H 07/15/17 05:10 AST 42 U/L (15-37) H D 07/15/17 05:10 ALT 53 U/L (12-78) D 07/15/17 05:10 Alkaline Phosphatase 35 U/L (45-117) L 07/15/17 05:10 Total Protein 4.4 g/dl (6.4-8.2) L 07/15/17 05:10 Albumin 2.2 g/dl (3.4-5.0) L 07/15/17 05:10 CARDIAC ENZYMES Troponin I 0.02 ng/ml (0.00-0.05) 07/14/17 12:15 Current Medications Generic Name Dose Route Start Last Admin Trade Name Freq PRN Reason Stop Dose Admin Acetaminophen 1,000 mg 07/14/17 16:57 Ofirmev Injection - IVPB Q6H PRN PAIN LEVEL 1-3 Atenolol 25 mg 07/15/17 10:00 Tenormin - PO DAILY [facility] Atorvastatin Calcium 20 mg 07/14/17 22:00 07/14/17 21:18 Lipitor - PO 20 mg HS [facility] Administration Chlorhexidine Gluconate 1 applic 07/14/17 22:00 07/14/17 22:00 Hibiclens For Decolonization - TP 1 applic HS [facility] Administration Hydromorphone HCl 10 mg 07/14/17 13:15 07/14/17 12:20 Dilaudid Refrigerator Tester - ACETYLENE TORCH BURNER 07/17/17 13:14 10 mg ACETYLENE TORCH BURNER [facility] Administration Protocol Lactated Ringer's 1,000 mls @ 125 mls/hr 07/14/17 12:43 07/14/17 12:20 Lactated Ringers Solution IV 265 mls ASDIR [facility] Administration Piperacillin Sod/Tazobactam 100 mls @ 200 mls/hr 07/14/17 14:00 07/15/17 02: 10 Sod 4.5 gm/ Dextrose IVPB 200 mls/hr Q8H-IV [facility] Administration Protocol Mupirocin 1 applic 07/14/17 22:00 07/14/17 21:19 Bactroban Ointment (For Decolonization) - NS 07/19/17 21:59 1 applic BID [facility]IGH Administration Ondansetron HCl 4 mg 07/14/17 12:43 Zofran Injection IVPUSH Q6H PRN NAUSEA Pantoprazole Sodium 40 mg 07/15/17 10:00 Protonix Iv IVPUSH DAILY [facility] Polyethylene Glycol 17 gm 07/15/17 10:00 Miralax (For Daily Use) - PO DAILY [facility] Simethicone 40 mg 07/14/17 12:43 Mylicon Liquid - PO QID PRN INDIGESTION Home Medications Medication Instructions Recorded Atenolol [Tenormin] 25 mg PO DAILY 09/18/12 Aspirin 162 mg PO DAILY 07/13/17 Atorvastatin Ca [Lipitor] 20 mg PO HS 07/13/17 Omeprazole 40 mg PO DAILY 07/13/17 CT abdomens and Pelvis: multiple small gallstones with distended GB. No acute cholecystitis. ASSESSMENT AND PLAN: Patient is a 72 yr old man with no significant PMHx presented with diffuse abdominal pain with RUQ tenderness with biliary colic. #POD #2 s/p open quinton. by presented with Biliary colic and cholithiasis , CT reported Gallstones without any cholecystitis . on IV antibiotic zosyn As per Dr. holden discussion and documentation ; patient during laparoscopy quinton. was found to have a well scarred in intra-hepatic gallbladder with aberrant vascular anatomy. Bleeding was ecountered. Replaced right hepatic from the the Superior Mesenteric Artery is likely variant. surgical hemostasis was achieved as #elevated AST improving post surgery #HTN continue home medication tenormin 25mg #HLD continue lipitor hold the asa. #DVT:SCDs for now, check with Dr. Holden when can we start lovenox for DVT px.
[2017-07-15] MEDS: MUPIROCIN 2% TOPICAL OINTMENT FOR DECOLONIZATION NS SCH ×2 (09:18→21:32)
--- NOTE | 2017-07-15 10:07 | PN ---
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 Yesterday he ate shrimp, rice, beans, ice cream, 2 glasses of sangria around 5pm at a restaurant, went home and was able to sleep. stable post operatively. transient nausea last night. Not passing flatus. no complaints now. - Current Medication List Current Medications: Active Medications Acetaminophen (Ofirmev Injection -) 1,000 mg IVPB Q6H PRN PRN Reason: PAIN LEVEL 1-3 Atenolol (Tenormin -) 25 mg PO DAILY [facility] Atorvastatin Calcium (Lipitor -) 20 mg PO HS [facility] Last Admin: 07/14/17 21:18 Dose: 20 mg Chlorhexidine Gluconate (Hibiclens For Decolonization -) 1 applic TP HS [facility] Last Admin: 07/14/17 22:00 Dose: 1 applic Hydromorphone HCl (Dilaudid Gas Or Water Meter Installer -) 10 mg BOOTH OPERATOR BOOTH OPERATOR [facility] PRN Reason: Protocol Stop: 07/17/17 13:14 Last Admin: 07/14/17 12:20 Dose: 10 mg Lactated Ringer's (Lactated Ringers Solution) 1,000 mls @ 125 mls/hr IV ASDIR [facility] Last Admin: 07/14/17 12:20 Dose: 265 mls Piperacillin Sod/Tazobactam (Sod 4.5 gm/ Dextrose) 100 mls @ 200 mls/hr IVPB Q8H-IV [facility] PRN Reason: Protocol Last Admin: 07/15/17 02:10 Dose: 200 mls/hr Mupirocin (Bactroban Ointment (For Decolonization) -) 1 applic NS BID [facility] Stop: 07/19/17 21:59 Last Admin: 07/15/17 09:18 Dose: 1 applic Ondansetron HCl (Zofran Injection) 4 mg IVPUSH Q6H PRN PRN Reason: NAUSEA Pantoprazole Sodium (Protonix Iv) 40 mg IVPUSH DAILY [facility] Polyethylene Glycol (Miralax (For Daily Use) -) 17 gm PO DAILY [facility] Simethicone (Mylicon Liquid -) 40 mg PO QID PRN PRN Reason: INDIGESTION - Objective Vital Signs: Vital Signs Temperature 98.1 F 07/14/17 15:15 Pulse Rate 82 07/15/17 08:00 Respiratory Rate 16 07/15/17 08:00 Blood Pressure 120/68 07/15/17 08:00 O2 Sat by Pulse Oximetry (%) 95 07/14/17 20:08 Vital Signs Period Temp Pulse Resp BP Sys/Gallagher Pulse Ox Last 24 Hr 98.1 F-98.9 F 79-94 9-21 93-140/50-95 93-100 Intake & Output 07/14/17 07/15/17 07/15/17 23:59 07:59 15:59 Intake Total 375 1550 Output Total 180 495 Balance 195 1055 Intake: IV 375 1500 Lactated Ringers Solution 375 1500 1,000 ml @ 125 mls/hr IV ASDIR [facility] Rx#: [id number] IVPB 50 Output: Drainage 80 120 Right Abdomen 80 120 Urine 100 375 Schwartz 100 375 Other: Voiding Method Indwelling Catheter Bowel Movement No No Constitutional: Yes: Well Nourished, No Distress, Calm Eyes: Yes: Conjunctiva Clear, EOM Intact HENT: Yes: Atraumatic, Normocephalic Neck: Yes: Supple, Trachea Midline Cardiovascular: Yes: Regular Rate and Rhythm, S1, S2 Respiratory: Yes: Regular, CTA Bilaterally Gastrointestinal: Yes: Normal Bowel Sounds, Soft, Tenderness (margaret-incisoional) Genitourinary: No: CVA Tenderness - Left, CVA Tenderness - Right Extremities: No: Cool, Cyanosis Edema: Yes Wound/Incision: Yes: Clean/Dry, Well Approximated, Dara Intact, Draining ( RUQ drian 150ml bile stained), Other Neurological: Yes: Alert Psychiatric: Yes: Alert, Oriented Labs: CBC, BMP CBC,CMP WBC 12.1 K/mm3 (4.0-10.0) H 07/15/17 05:10 RBC 3.37 M/mm3 (4.00-5.60) L 07/15/17 05:10 Hgb 11.3 GM/dL (11.7-16.9) L D 07/15/17 05:10 Hct 31.5 % (35.4-49) L D 07/15/17 05:10 MCV 93.4 fl (80-96) 07/15/17 05:10 MCH 33.5 pg (25.7-33.7) 07/15/17 05:10 MCHC 35.9 g/dl (32.0-35.9) 07/15/17 05:10 RDW 13.6 % (11.9-15.9) 07/15/17 05:10 Plt Count 155 K/MM3 (134-434) 07/15/17 05:10 MPV 7.9 fl (7.5-11.1) 07/15/17 05:10 Neutrophils % 87.4 % (42.8-82.8) H 07/15/17 05:10 Lymphocytes % 4.1 % (8-40) L D 07/15/17 05:10 Monocytes % 8.5 % (3.8-10.2) 07/15/17 05:10 Eosinophils % 0.0 % (0-4.5) 07/15/17 05:10 Basophils % 0.0 % (0-2.0) 07/15/17 05:10 Sodium 140 mmol/L (136-145) 07/15/17 05:10 Potassium 4.3 mmol/L (3.5-5.1) 07/15/17 05:10 Chloride 107 mmol/L (98-107) 07/15/17 05:10 Carbon Dioxide 29 mmol/L (21-32) D 07/15/17 05:10 Anion Gap 4 (8-16) L 07/15/17 05:10 BUN 16 mg/dL (7-18) D 07/15/17 05:10 Creatinine 0.7 mg/dL (0.7-1.3) 07/15/17 05:10 Creat Clearance w eGFR > 60 (>60) 07/15/17 05:10 POC Glucometer 143.22871 UNITS (80-120) 07/13/17 07:34 Random Glucose 132 mg/dL (74-106) H D 07/15/17 05:10 Calcium 7.4 mg/dL (8.5-10.1) L 07/15/17 05:10 Phosphorus 2.7 mg/dL (2.5-4.9) 07/15/17 05:10 Magnesium 1.6 mg/dL (1.8-2.4) L 07/15/17 05:10 Total Bilirubin 2.5 mg/dL (0.2-1.0) H 07/15/17 05:10 AST 42 U/L (15-37) H D 07/15/17 05:10 ALT 53 U/L (12-78) D 07/15/17 05:10 Alkaline Phosphatase 35 U/L (45-117) L 07/15/17 05:10 Troponin I 0.02 ng/ml (0.00-0.05) 07/14/17 12:15 Total Protein 4.4 g/dl (6.4-8.2) L 07/15/17 05:10 Albumin 2.2 g/dl (3.4-5.0) L 07/15/17 05:10 Total Amylase 31 U/L (25-115) 07/13/17 03:00 Lipase 48 U/L (73-393) L 07/13/17 03:00 INR, PTT INR 1.51 (0.82-1.09) H 07/15/17 05:10 Problem List - Problems (1) Cholecystitis Assessment/Plan: 72 yo male MMP with biliary colic versus early acute cholecystitis Advance to clear liquid diet IVF hydration adequate analgesia DVT prophylaxsis This patient is being observed in the ICU. Time spent reviewing chart, examining patient, talking with providers and/or family and documentation is 35 minutes Code(s): K81.9 - CHOLECYSTITIS, UNSPECIFIED (2) Abdominal pain Code(s): R10.9 - UNSPECIFIED ABDOMINAL PAIN Qualifiers: Abdominal location: unspecified location Qualified Code(s): R10.9 - Unspecified abdominal pain (3) Cholelithiasis Code(s): K80.20 - CALCULUS OF GALLBLADDER W/O CHOLECYSTITIS W/O OBSTRUCTION Qualifiers: Cholelithiasis location: gallbladder Cholecystitis presence: without cholecystitis Biliary obstruction: without biliary obstruction Qualified Code(s): K80.20 - Calculus of gallbladder without cholecystitis without obstruction (4) UTI (lower urinary tract infection) Code(s): N39.0 - URINARY TRACT INFECTION, SITE NOT SPECIFIED
--- NOTE | 2017-07-15 10:35 | PN ---
Physical Exam: SUBJECTIVE: Patient seen and examined No acute events overnight. Patient continues to have mild abdominal pain. Drain in place. Tolerating diet. OBJECTIVE: Vital Signs Period Temp Pulse Resp BP Sys/Gallagher Pulse Ox Last 24 Hr 98.1 F-100.1 F 79-94 9-21 93-140/50-95 93-100 GENERAL: Awake, alert, and fully oriented, in no acute distress. HEAD: Normal with no signs of trauma. LUNGS: Breath sounds equal, clear to auscultation bilaterally. No wheezes, and no crackles. No accessory muscle use. HEART: Regular rate and rhythm, normal S1 and S2 without murmur, rub or gallop. ABDOMEN: Soft, nontender, normoactive bowel sounds, no guarding, no rebound, no masses. No hepatomegaly or splenomegaly. negative mc's, surgical dressing in place. +LISA drain in place with red blood LOWER EXTREMITIES: warm, well-perfused. No calf tenderness. No peripheral edema. PSYCHIATRIC: Cooperative. Good eye contact. Appropriate mood and affect. SKIN: Warm, dry, normal turgor, no rashes or lesions noted, normal capillary refill. Laboratory Results - last 24 hr 07/14/17 07/14/17 07/14/17 12:15 12:15 12:15 WBC 17.5 H D RBC 4.23 Hgb 13.7 D Hct 40.0 MCV 94.6 MCH 32.3 MCHC 34.2 RDW 13.5 Plt Count 212 MPV 7.7 Neutrophils % 88.7 H D Lymphocytes % 6.9 L D Monocytes % 4.2 Eosinophils % 0.0 D Basophils % 0.2 PT with INR 17.70 H INR 1.57 H D Sodium 143 Potassium 4.6 Chloride 110 H Carbon Dioxide 24 Anion Gap 9 BUN 12 Creatinine 0.7 Creat Clearance w eGFR > 60 Random Glucose 178 H D Calcium 7.0 L D Phosphorus Magnesium Total Bilirubin 2.9 H D AST 80 H D ALT 78 D Alkaline Phosphatase 40 L D Troponin I 0.02 Total Protein 4.4 L D Albumin 2.4 L D 07/14/17 07/15/17 07/15/17 17:30 05:10 05:10 WBC 14.3 H 12.1 H RBC 3.94 L 3.37 L Hgb 13.0 11.3 L D Hct 37.4 31.5 L D MCV 94.8 93.4 MCH 33.0 33.5 MCHC 34.9 35.9 RDW 13.8 13.6 Plt Count 188 155 MPV 7.9 7.9 Neutrophils % 92.1 H 87.4 H Lymphocytes % 2.6 L D 4.1 L D Monocytes % 5.3 8.5 Eosinophils % 0.0 0.0 Basophils % 0.0 0.0 PT with INR INR Sodium 140 Potassium 4.3 Chloride 107 Carbon Dioxide 29 D Anion Gap 4 L BUN 16 D Creatinine 0.7 Creat Clearance w eGFR > 60 Random Glucose 132 H D Calcium 7.4 L Phosphorus 2.7 Magnesium 1.6 L Total Bilirubin 2.5 H AST 42 H D ALT 53 D Alkaline Phosphatase 35 L Troponin I Total Protein 4.4 L Albumin 2.2 L 07/15/17 05:10 WBC RBC Hgb Hct MCV MCH MCHC RDW Plt Count MPV Neutrophils % Lymphocytes % Monocytes % Eosinophils % Basophils % PT with INR 17.10 H INR 1.51 H Sodium Potassium Chloride Carbon Dioxide Anion Gap BUN Creatinine Creat Clearance w eGFR Random Glucose Calcium Phosphorus Magnesium Total Bilirubin AST ALT Alkaline Phosphatase Troponin I Total Protein Albumin Active Medications Generic Name Dose Route Start Last Admin Trade Name Freq PRN Reason Stop Dose Admin Acetaminophen 1,000 mg 07/14/17 16:57 Ofirmev Injection - IVPB Q6H PRN PAIN LEVEL 1-3 Atenolol 25 mg 07/15/17 10:00 Tenormin - PO DAILY [facility] Atorvastatin Calcium 20 mg 07/14/17 22:00 07/14/17 21:18 Lipitor - PO 20 mg HS [facility] Administration Chlorhexidine Gluconate 1 applic 07/14/17 22:00 07/14/17 22:00 Hibiclens For Decolonization - TP 1 applic HS [facility] Administration Hydromorphone HCl 10 mg 07/14/17 13:15 07/14/17 12:20 Dilaudid Senior Instrumentation Engineer - PLUNGER SCOOP OPERATOR 07/17/17 13:14 10 mg PLUNGER SCOOP OPERATOR [facility] Administration Protocol Lactated Ringer's 1,000 mls @ 125 mls/hr 07/14/17 12:43 07/14/17 12:20 Lactated Ringers Solution IV 265 mls ASDIR [facility] Administration Piperacillin Sod/Tazobactam 100 mls @ 200 mls/hr 07/14/17 14:00 07/15/17 02: 10 Sod 4.5 gm/ Dextrose IVPB 200 mls/hr Q8H-IV [facility] Administration Protocol Mupirocin 1 applic 07/14/17 22:00 07/15/17 09:18 Bactroban Ointment (For Decolonization) - NS 07/19/17 21:59 1 applic BID [facility] Administration Ondansetron HCl 4 mg 07/14/17 12:43 Zofran Injection IVPUSH Q6H PRN NAUSEA Pantoprazole Sodium 40 mg 07/15/17 10:00 Protonix Iv IVPUSH DAILY [facility] Polyethylene Glycol 17 gm 07/15/17 10:00 Miralax (For Daily Use) - PO DAILY [facility] Simethicone 40 mg 07/14/17 12:43 Mylicon Liquid - PO QID PRN INDIGESTION ASSESSMENT/PLAN: 72 yr old man with abdominal pain admitted for abdominal pain. #abominal pain, POD 2 s/p cholecystectomy -Day 2 of Zosyn -protonix 40 mg po acbk -miralax daily -LR @ 125 cc/hr -Dilaudid PLUNGER SCOOP OPERATOR -simethicone/zofran/tylenol -Surgery/ID consult #acute blood loss anemia -monitor repeat cbc -if stable can dc icu and tx to m/s #elevated AST , improving -continue to monitor s/p cholecystectomy #HTN - continue home medication tenormin 25mg #HLD - continue lipitor #FEN/GI -LR @ 125 cc/hr -wnl -clear liquids #Ppx -scd -protonix Visit type - Emergency Visit Emergency Visit: Yes ED Registration Date: 07/13/17 Care time: The patient presented to the Emergency Department on the above date and was hospitalized for further evaluation of their emergent condition. - New Patient This patient is new to me today: No - Critical Care Critical Care patient: Yes Total Critical Care Time (in minutes): 44 Critical Care Statement: The care of this patient involved high complexity decision making to prevent further life threatening deterioration of the patient 's condition and/or to evaluate & treat vital organ system(s) failure or risk of failure.
[2017-07-15] MEDS ORDERED: PT OWN MED DRAWER 7, Y5N ONE ×2 (10:39→18:24)
[2017-07-15] MEDS: POLYETHYLENE GLYCOL 3350 119 GM BTL PO SCH (10:46)
[2017-07-15] MEDS: PANTOPRAZOLE SODIUM 40 MG VIAL IVPUSH SCH (10:46)
[2017-07-15] MEDS: ATENOLOL 25 MG TABLET (FP) PO SCH (10:47)
--- NOTE | 2017-07-15 12:05 | PN ---
Teaching Attending Note Name of Resident: Monik Napier ATTENDING PHYSICIAN STATEMENT I saw and evaluated the patient. I reviewed the resident's note and discussed the case with the resident. I agree with the resident's findings and plan as documented. SUBJECTIVE: Patient seen and examined in the ICU. Awake and alert. Mild abdominal discomfort when he uses the Incentive Spirometer. No CP or SOB. Tolerated PO intake this AM. Intake & Output 07/12/17 07/13/17 07/14/17 07/15/17 23:59 23:59 23:59 23:59 Intake Total 0 7700 1550 Output Total 850 1710 495 Balance -850 5990 1055 Weight 162 lb Last Vital Signs Temp Pulse Resp BP Pulse Ox 100.1 F H 81 17 139/77 95 07/15/17 10:00 07/15/17 10:00 07/15/17 10:00 07/15/17 10:00 07/15/17 09:00 Active Medications Acetaminophen (Ofirmev Injection -) 1,000 mg IVPB Q6H PRN PRN Reason: PAIN LEVEL 1-3 Atenolol (Tenormin -) 25 mg PO DAILY [facility] Last Admin: 07/15/17 10:47 Dose: 25 mg Atorvastatin Calcium (Lipitor -) 20 mg PO HS [facility] Last Admin: 07/14/17 21:18 Dose: 20 mg Chlorhexidine Gluconate (Hibiclens For Decolonization -) 1 applic TP HS [facility] Last Admin: 07/14/17 22:00 Dose: 1 applic Hydromorphone HCl (Dilaudid Grade Recorder -) 10 mg MATHEMATICS LECTURER MATHEMATICS LECTURER [facility] PRN Reason: Protocol Stop: 07/17/17 13:14 Last Admin: 07/14/17 12:20 Dose: 10 mg Lactated Ringer's (Lactated Ringers Solution) 1,000 mls @ 125 mls/hr IV ASDIR [facility] Last Admin: 07/14/17 12:20 Dose: 265 mls Piperacillin Sod/Tazobactam (Sod 4.5 gm/ Dextrose) 100 mls @ 200 mls/hr IVPB Q8H-IV [facility] PRN Reason: Protocol Last Admin: 07/15/17 10:47 Dose: 200 mls/hr Mupirocin (Bactroban Ointment (For Decolonization) -) 1 applic NS BID [facility] Stop: 07/19/17 21:59 Last Admin: 07/15/17 09:18 Dose: 1 applic Ondansetron HCl (Zofran Injection) 4 mg IVPUSH Q6H PRN PRN Reason: NAUSEA Pantoprazole Sodium (Protonix Iv) 40 mg IVPUSH DAILY [facility] Last Admin: 07/15/17 10:46 Dose: 40 mg Polyethylene Glycol (Miralax (For Daily Use) -) 17 gm PO DAILY [facility] Last Admin: 07/15/17 10:46 Dose: 17 grams Simethicone (Mylicon Liquid -) 40 mg PO QID PRN PRN Reason: INDIGESTION Gen: Awake and alert, NAD at rest Heart: RRR Lung: decreased breath sounds at the bases Abd: soft, dressings dry, +drain with dark fluid Ext: no edema Laboratory Results - last 24 hr 07/14/17 07/14/17 07/14/17 12:15 12:15 12:15 WBC 17.5 H D RBC 4.23 Hgb 13.7 D Hct 40.0 MCV 94.6 MCH 32.3 MCHC 34.2 RDW 13.5 Plt Count 212 MPV 7.7 Neutrophils % 88.7 H D Lymphocytes % 6.9 L D Monocytes % 4.2 Eosinophils % 0.0 D Basophils % 0.2 PT with INR 17.70 H INR 1.57 H D Sodium 143 Potassium 4.6 Chloride 110 H Carbon Dioxide 24 Anion Gap 9 BUN 12 Creatinine 0.7 Creat Clearance w eGFR > 60 Random Glucose 178 H D Calcium 7.0 L D Phosphorus Magnesium Total Bilirubin 2.9 H D AST 80 H D ALT 78 D Alkaline Phosphatase 40 L D Troponin I 0.02 Total Protein 4.4 L D Albumin 2.4 L D 07/14/17 07/15/17 07/15/17 17:30 05:10 05:10 WBC 14.3 H 12.1 H RBC 3.94 L 3.37 L Hgb 13.0 11.3 L D Hct 37.4 31.5 L D MCV 94.8 93.4 MCH 33.0 33.5 MCHC 34.9 35.9 RDW 13.8 13.6 Plt Count 188 155 MPV 7.9 7.9 Neutrophils % 92.1 H 87.4 H Lymphocytes % 2.6 L D 4.1 L D Monocytes % 5.3 8.5 Eosinophils % 0.0 0.0 Basophils % 0.0 0.0 PT with INR INR Sodium 140 Potassium 4.3 Chloride 107 Carbon Dioxide 29 D Anion Gap 4 L BUN 16 D Creatinine 0.7 Creat Clearance w eGFR > 60 Random Glucose 132 H D Calcium 7.4 L Phosphorus 2.7 Magnesium 1.6 L Total Bilirubin 2.5 H AST 42 H D ALT 53 D Alkaline Phosphatase 35 L Troponin I Total Protein 4.4 L Albumin 2.2 L 07/15/17 05:10 WBC RBC Hgb Hct MCV MCH MCHC RDW Plt Count MPV Neutrophils % Lymphocytes % Monocytes % Eosinophils % Basophils % PT with INR 17.10 H INR 1.51 H Sodium Potassium Chloride Carbon Dioxide Anion Gap BUN Creatinine Creat Clearance w eGFR Random Glucose Calcium Phosphorus Magnesium Total Bilirubin AST ALT Alkaline Phosphatase Troponin I Total Protein Albumin ASSESSMENT AND PLAN: Acute Cholecystitis Sepsis s/p Open Cholecystectomy Acute Blood Loss Anemia HTN Hyperlipidemia h/o DVT/PE - IV antibiotics - f/u final cultures - IVF - monitor urine output, creatinine - pain control - incentive spirometry - O2 to keep SpO2 >90% - monitor H/H - Normal transfusion thresholds - mechanical DVT prophylaxis - PO as tolerated - Floor when OK with surgery Dr Lopez Critical care time spent in reviewing chart, evaluating patient and formulating plan - 36 minutes.
--- NOTE | 2017-07-15 12:24 | PN ---
Physical Exam: SUBJECTIVE: Patient seen and examined in the ICU. Pt reports mild abdominal pain when he uses the Incentive Spirometer. Pt tolerating clear liquid diet. Pt reports (+) flatus, (-) BM. Pt denies chest pain, sob, headache, fever, chills. No events overnight. OBJECTIVE: Vital Signs Period Temp Pulse Resp BP Sys/Gallagher Pulse Ox Last 24 Hr 98.1 F-100.1 F 79-94 9-21 93-140/50-95 93-100 GENERAL: Awake, alert, and fully oriented, in no acute distress. LUNGS: Breath sounds equal, clear to auscultation bilaterally. No wheezes, and no crackles. No accessory muscle use. HEART: Regular rate and rhythm, normal S1 and S2 without murmur, rub or gallop. ABDOMEN: Soft, not distended, no guarding. Surgical dressing CDI. LISA drain with dark fluid. LOWER EXTREMITIES: Warm, well-perfused. No calf tenderness. No peripheral edema. PSYCHIATRIC: Cooperative. Good eye contact. Appropriate mood and affect. Laboratory Results - last 24 hr 07/14/17 07/14/17 07/14/17 12:15 12:15 12:15 WBC 17.5 H D RBC 4.23 Hgb 13.7 D Hct 40.0 MCV 94.6 MCH 32.3 MCHC 34.2 RDW 13.5 Plt Count 212 MPV 7.7 Neutrophils % 88.7 H D Lymphocytes % 6.9 L D Monocytes % 4.2 Eosinophils % 0.0 D Basophils % 0.2 PT with INR 17.70 H INR 1.57 H D Sodium 143 Potassium 4.6 Chloride 110 H Carbon Dioxide 24 Anion Gap 9 BUN 12 Creatinine 0.7 Creat Clearance w eGFR > 60 Random Glucose 178 H D Calcium 7.0 L D Phosphorus Magnesium Total Bilirubin 2.9 H D AST 80 H D ALT 78 D Alkaline Phosphatase 40 L D Troponin I 0.02 Total Protein 4.4 L D Albumin 2.4 L D 07/14/17 07/15/17 07/15/17 17:30 05:10 05:10 WBC 14.3 H 12.1 H RBC 3.94 L 3.37 L Hgb 13.0 11.3 L D Hct 37.4 31.5 L D MCV 94.8 93.4 MCH 33.0 33.5 MCHC 34.9 35.9 RDW 13.8 13.6 Plt Count 188 155 MPV 7.9 7.9 Neutrophils % 92.1 H 87.4 H Lymphocytes % 2.6 L D 4.1 L D Monocytes % 5.3 8.5 Eosinophils % 0.0 0.0 Basophils % 0.0 0.0 PT with INR INR Sodium 140 Potassium 4.3 Chloride 107 Carbon Dioxide 29 D Anion Gap 4 L BUN 16 D Creatinine 0.7 Creat Clearance w eGFR > 60 Random Glucose 132 H D Calcium 7.4 L Phosphorus 2.7 Magnesium 1.6 L Total Bilirubin 2.5 H AST 42 H D ALT 53 D Alkaline Phosphatase 35 L Troponin I Total Protein 4.4 L Albumin 2.2 L 07/15/17 05:10 WBC RBC Hgb Hct MCV MCH MCHC RDW Plt Count MPV Neutrophils % Lymphocytes % Monocytes % Eosinophils % Basophils % PT with INR 17.10 H INR 1.51 H Sodium Potassium Chloride Carbon Dioxide Anion Gap BUN Creatinine Creat Clearance w eGFR Random Glucose Calcium Phosphorus Magnesium Total Bilirubin AST ALT Alkaline Phosphatase Troponin I Total Protein Albumin Active Medications Generic Name Dose Route Start Last Admin Trade Name Freq PRN Reason Stop Dose Admin Acetaminophen 1,000 mg 07/14/17 16:57 Ofirmev Injection - IVPB Q6H PRN PAIN LEVEL 1-3 Atenolol 25 mg 07/15/17 10:00 07/15/17 10:47 Tenormin - PO 25 mg DAILY [facility] Administration Atorvastatin Calcium 20 mg 07/14/17 22:00 07/14/17 21:18 Lipitor - PO 20 mg HS [facility] Administration Chlorhexidine Gluconate 1 applic 07/14/17 22:00 07/14/17 22:00 Hibiclens For Decolonization - TP 1 applic HS [facility] Administration Hydromorphone HCl 10 mg 07/14/17 13:15 07/14/17 12:20 Dilaudid Director Of Parks And Recreation - BOX INSPECTOR 07/17/17 13:14 10 mg BOX INSPECTOR [facility] Administration Protocol Lactated Ringer's 1,000 mls @ 125 mls/hr 07/14/17 12:43 07/14/17 12:20 Lactated Ringers Solution IV 265 mls ASDIR [facility] Administration Piperacillin Sod/Tazobactam 100 mls @ 200 mls/hr 07/14/17 14:00 07/15/17 10: 47 Sod 4.5 gm/ Dextrose IVPB 200 mls/hr Q8H-IV [facility] Administration Protocol Mupirocin 1 applic 07/14/17 22:00 07/15/17 09:18 Bactroban Ointment (For Decolonization) - NS 07/19/17 21:59 1 applic BID [facility] Administration Ondansetron HCl 4 mg 07/14/17 12:43 Zofran Injection IVPUSH Q6H PRN NAUSEA Pantoprazole Sodium 40 mg 07/15/17 10:00 07/15/17 10:46 Protonix Iv IVPUSH 40 mg DAILY [facility] Administration Polyethylene Glycol 17 gm 07/15/17 10:00 07/15/17 10:46 Miralax (For Daily Use) - PO 17 grams DAILY [facility] Administration Simethicone 40 mg 07/14/17 12:43 Mylicon Liquid - PO QID PRN INDIGESTION ASSESSMENT/PLAN: 72M with PMH of htn, hld, DVT and PE (Right LE 11/2016, completed AC 03/2017), presented with abdominal pain, found to have acute cholecystitis, s/p cholecystectomy (laproscopic converted to open) complicated by intra-op bleeding. # sepsis 2/2 acute cholecystitis - s/p open cholecystectomy by Dr. Dominguez on 07/14 - POD #1 - post-op care per Surgery (Dr. Dominguez) - Day 2 of IV Zosyn - Zofran prn for nausea - incentive spirometry - Dilaudid pump and Ofirmev prn for pain control - Miralax daily for bowel regimen - monitor UOP # acute blood loss anemia - monitor CBC - monitor for overt s/s of bleeding - transfuse prn # hld - continue home med of Lipitor # htn - continue home med of Tenormin # FEN/ppx - Fluids: LR @ 125 ml/hr - Electrolytes: wnl, continue to monitor - Nutrition: clear liquids - DVT ppx with yahaira SCDs - GI ppx with Protonix Visit type - Emergency Visit Emergency Visit: Yes ED Registration Date: 07/13/17 Care time: The patient presented to the Emergency Department on the above date and was hospitalized for further evaluation of their emergent condition. - New Patient This patient is new to me today: No - Critical Care Critical Care patient: Yes Total Critical Care Time (in minutes): 37 Critical Care Statement: The care of this patient involved high complexity decision making to prevent further life threatening deterioration of the patient 's condition and/or to evaluate & treat vital organ system(s) failure or risk of failure.
--- NOTE | 2017-07-15 14:49 | PN ---
Progress Note (short form) - Note Progress Note: Anesthesia postop note 72 y/o M s/p GA for open cholecystectomy, intraop bleeding, iv leather coater for postop pain management POD#1, vss, aaox3, sitting in chair in icu pain well controlled with leather coater, will continue today, reevaluate tomorrow No anesthesia complications.
--- NOTE | 2017-07-15 16:12 | PN ---
Progress Note, Physician History of Present Illness: stable no new issues post op pain awake and alert - Current Medication List Current Medications: Active Medications Acetaminophen (Ofirmev Injection -) 1,000 mg IVPB Q6H PRN PRN Reason: PAIN LEVEL 1-3 Atenolol (Tenormin -) 25 mg PO DAILY [facility] Last Admin: 07/15/17 10:47 Dose: 25 mg Atorvastatin Calcium (Lipitor -) 20 mg PO HS [facility] Last Admin: 07/14/17 21:18 Dose: 20 mg Chlorhexidine Gluconate (Hibiclens For Decolonization -) 1 applic TP HS [facility] Last Admin: 07/14/17 22:00 Dose: 1 applic Hydromorphone HCl (Dilaudid Professional Skateboarder -) 10 mg COUNTER TOP ASSEMBLER COUNTER TOP ASSEMBLER [facility] PRN Reason: Protocol Stop: 07/17/17 13:14 Last Admin: 07/14/17 12:20 Dose: 10 mg Lactated Ringer's (Lactated Ringers Solution) 1,000 mls @ 125 mls/hr IV ASDIR [facility] Last Admin: 07/14/17 12:20 Dose: 265 mls Piperacillin Sod/Tazobactam (Sod 4.5 gm/ Dextrose) 100 mls @ 200 mls/hr IVPB Q8H-IV [facility] PRN Reason: Protocol Last Admin: 07/15/17 10:47 Dose: 200 mls/hr Mupirocin (Bactroban Ointment (For Decolonization) -) 1 applic NS BID [facility] Stop: 07/19/17 21:59 Last Admin: 07/15/17 09:18 Dose: 1 applic Ondansetron HCl (Zofran Injection) 4 mg IVPUSH Q6H PRN PRN Reason: NAUSEA Pantoprazole Sodium (Protonix Iv) 40 mg IVPUSH DAILY [facility] Last Admin: 07/15/17 10:46 Dose: 40 mg Polyethylene Glycol (Miralax (For Daily Use) -) 17 gm PO DAILY [facility] Last Admin: 07/15/17 10:46 Dose: 17 grams Simethicone (Mylicon Liquid -) 40 mg PO QID PRN PRN Reason: INDIGESTION - Objective Vital Signs: Vital Signs Temperature 98.6 F 07/15/17 12:00 Pulse Rate 78 07/15/17 14:00 Respiratory Rate 18 07/15/17 14:00 Blood Pressure 118/62 07/15/17 14:00 O2 Sat by Pulse Oximetry (%) 95 07/15/17 09:00 Constitutional: Yes: No Distress, Calm Cardiovascular: Yes: Regular Rate and Rhythm Respiratory: Yes: Regular, CTA Bilaterally Gastrointestinal: Yes: Soft, Hypoactive Bowel Sounds, Other (hilda drain in place) Musculoskeletal: Yes: WNL Extremities: Yes: WNL Neurological: Yes: Alert, Oriented Psychiatric: Yes: Alert, Oriented Labs: CBC, BMP 07/15/17 05:10 07/15/17 05:10 INR, PTT INR 1.51 (0.82-1.09) H 07/15/17 05:10 Assessment/Plan Problem List - Problems (1) Cholecystitis Code(s): K81.9 - CHOLECYSTITIS, UNSPECIFIED (2) Abdominal pain Code(s): R10.9 - UNSPECIFIED ABDOMINAL PAIN Qualifiers: Abdominal location: unspecified location Qualified Code(s): R10.9 - Unspecified abdominal pain (3) Cholelithiasis Code(s): K80.20 - CALCULUS OF GALLBLADDER W/O CHOLECYSTITIS W/O OBSTRUCTION Qualifiers: Cholelithiasis location: gallbladder Cholecystitis presence: without cholecystitis Biliary obstruction: without biliary obstruction Qualified Code(s): K80.20 - Calculus of gallbladder without cholecystitis without obstruction (4) UTI (lower urinary tract infection) Code(s): N39.0 - URINARY TRACT INFECTION, SITE NOT SPECIFIED plan hydration continue abx stable icu on piano case maker vital and h and h watch for drainage and fever cc time 40 min
[2017-07-15 17:45] LABS: BASO % 0.1 % (0-2.0); HEMATOCRIT 30.1 % (35.4-49); HEMOGLOBIN 10.4 GM/dL (11.7-16.9); LYMPH % 5.6 % (8-40); MCH 32.7 pg (25.7-33.7); MCHC 34.5 g/dl (32.0-35.9); MEAN CELL VOLUME 94.9 fl (80-96); MEAN PLT VOLUME 8.3 fl (7.5-11.1); MONO % 9.7 % (3.8-10.2); NEUT % 84.6 % (42.8-82.8); PLATELET COUNT 138 K/MM3 (134-434); RBC 3.17 M/mm3 (4.00-5.60); RDW 13.7 % (11.9-15.9); WHITE BLOOD COUNT 9.4 K/mm3 (4.0-10.0)
[2017-07-15] MEDS: LACTATED RINGERS SOLUTION 1,000 ML IV SCH (18:26)
[2017-07-15] MEDS: CHLORHEXIDINE GLUCONATE 4% CLEANSER FOR DECOLONIZATION TP SCH (21:31)
[2017-07-15] MEDS: ATORVASTATIN CA 20 MG TABLET (FP) PO SCH (21:31)
[2017-07-15 21:58] LABS: BASO % 0.1 % (0-2.0); EOS % 0.1 % (0-4.5); HEMATOCRIT 29.5 % (35.4-49); HEMOGLOBIN 10.1 GM/dL (11.7-16.9); LYMPH % 6.8 % (8-40); MCH 32.7 pg (25.7-33.7); MCHC 34.3 g/dl (32.0-35.9); MEAN CELL VOLUME 95.3 fl (80-96); MEAN PLT VOLUME 7.8 fl (7.5-11.1); MONO % 8.7 % (3.8-10.2); NEUT % 84.3 % (42.8-82.8); PLATELET COUNT 130 K/MM3 (134-434); RDW 13.8 % (11.9-15.9); WHITE BLOOD COUNT 8.3 K/mm3 (4.0-10.0)
[2017-07-16] MEDS ORDERED: PIPERACILLIN/TAZOBACTAM 4.5 GM VIAL IVPB ONE ×3 (00:49→16:20)
[2017-07-16] MEDS ORDERED: DEXTROSE 5%-WATER 100 ML IVPB ONE ×3 (00:49→16:20)
[2017-07-16] MEDS: PIPERACILLIN/TAZOB 4.5 GM 4.5 GM in DEXTROSE 5%-WATER 100 ML IVPB SCH ×3 (00:59→17:20)
[2017-07-16 06:03] LABS: BASO % 0.2 % (0-2.0); EOS % 0.4 % (0-4.5); HEMATOCRIT 27.6 % (35.4-49); HEMOGLOBIN 9.6 GM/dL (11.7-16.9); LYMPH % 8.2 % (8-40); MCHC 34.9 g/dl (32.0-35.9); MEAN CELL VOLUME 94.5 fl (80-96); MONO % 9.1 % (3.8-10.2); NEUT % 82.1 % (42.8-82.8); PLATELET COUNT 115 K/MM3 (134-434); RBC 2.93 M/mm3 (4.00-5.60); RDW 13.2 % (11.9-15.9); WHITE BLOOD COUNT 5.8 K/mm3 (4.0-10.0)
[2017-07-16 06:25] LABS: INR 1.24 (0.82-1.09)
[2017-07-16 07:13] LABS: ALBUMIN 2.2 g/dl (3.4-5.0); ALK PHOS 31 U/L (45-117); ANION GAP 6 (8-16); BILIRUBIN,TOTAL 1.7 mg/dL (0.2-1.0); BLOOD UREA NITROGEN 7 mg/dL (7-18); CALCIUM 7.9 mg/dL (8.5-10.1); CHLORIDE 103 mmol/L (98-107); CO2 33 mmol/L (21-32); CREATININE 0.5 mg/dL (0.7-1.3); GLUCOSE,RANDOM 108 mg/dL (74-106); MAGNESIUM 1.9 mg/dL (1.8-2.4); PHOSPHOROUS 1.3 mg/dL (2.5-4.9); POTASSIUM 4.1 mmol/L (3.5-5.1); SGOT/AST 27 U/L (15-37); SGPT/ALT 37 U/L (12-78); SODIUM 142 mmol/L (136-145); TOT PROT 4.5 g/dl (6.4-8.2)
--- NOTE | 2017-07-16 09:14 | PN ---
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 Yesterday he ate shrimp, rice, beans, ice cream, 2 glasses of sangria around 5pm at a restaurant, went home and was able to sleep. stable post operatively. transient nausea last night. Not passing flatus. no complaints now. - Current Medication List Current Medications: Active Medications Acetaminophen (Ofirmev Injection -) 1,000 mg IVPB Q6H PRN PRN Reason: PAIN LEVEL 1-3 Atenolol (Tenormin -) 25 mg PO DAILY [facility] Last Admin: 07/15/17 10:47 Dose: 25 mg Atorvastatin Calcium (Lipitor -) 20 mg PO HS [facility] Last Admin: 07/15/17 21:31 Dose: 20 mg Chlorhexidine Gluconate (Hibiclens For Decolonization -) 1 applic TP HS [facility] Last Admin: 07/15/17 21:31 Dose: 1 applic Hydromorphone HCl (Dilaudid Ballet Teacher -) 10 mg DESIGN VERIFICATION ENGINEER DESIGN VERIFICATION ENGINEER [facility] PRN Reason: Protocol Stop: 07/17/17 13:14 Last Admin: 07/14/17 12:20 Dose: 10 mg Lactated Ringer's (Lactated Ringers Solution) 1,000 mls @ 125 mls/hr IV ASDIR [facility] Last Admin: 07/15/17 18:26 Dose: 125 mls/hr Piperacillin Sod/Tazobactam (Sod 4.5 gm/ Dextrose) 100 mls @ 200 mls/hr IVPB Q8H-IV [facility] PRN Reason: Protocol Last Admin: 07/16/17 00:59 Dose: 200 mls/hr Mupirocin (Bactroban Ointment (For Decolonization) -) 1 applic NS BID [facility] Stop: 07/19/17 21:59 Last Admin: 07/15/17 21:32 Dose: 1 applic Ondansetron HCl (Zofran Injection) 4 mg IVPUSH Q6H PRN PRN Reason: NAUSEA Pantoprazole Sodium (Protonix Iv) 40 mg IVPUSH DAILY [facility] Last Admin: 07/15/17 10:46 Dose: 40 mg Polyethylene Glycol (Miralax (For Daily Use) -) 17 gm PO DAILY [facility] Last Admin: 07/15/17 10:46 Dose: 17 grams Potassium Phos/Sodium Phos (Phos-Nak Packet -) 1 packet PO BID [facility] Stop: 07/16/17 22:01 Simethicone (Mylicon Liquid -) 40 mg PO QID PRN PRN Reason: INDIGESTION - Objective Vital Signs: Vital Signs Temperature 99.2 F 07/16/17 06:00 Pulse Rate 71 07/16/17 08:00 Respiratory Rate 19 07/16/17 08:00 Blood Pressure 102/65 07/16/17 08:00 O2 Sat by Pulse Oximetry (%) 95 07/15/17 20:17 Vital Signs Period Temp Pulse Resp BP Sys/Gallagher Pulse Ox Last 24 Hr 98.6 F-100.1 F 66-85 10-21 102-139/52-77 95 Intake & Output 07/15/17 07/16/17 07/16/17 23:59 07:59 15:59 Intake Total 1477 1700 Output Total 985 1260 Balance 492 440 Weight 164 lb Intake: IV 1477 1500 Lactated Ringers Solution 1477 1500 1,000 ml @ 125 mls/hr IV ASDIR [facility] Rx#: [id number] IVPB 100 Oral 100 Output: Drainage 85 260 Right Abdomen 85 260 Urine 900 1000 Void 900 1000 Other: Voiding Method Urinal Weight Measurement Method Built in [facility] Constitutional: Yes: Well Nourished, No Distress Eyes: Yes: Conjunctiva Clear, EOM Intact HENT: Yes: Atraumatic, Normocephalic Neck: Yes: Supple, Trachea Midline Cardiovascular: Yes: Regular Rate and Rhythm, S1, S2 Respiratory: Yes: Regular, CTA Bilaterally Gastrointestinal: Yes: Normal Bowel Sounds, Soft, Abdomen, Obese, Tenderness ( incisional) ...Rectal Exam: Yes: Deferred Genitourinary: Yes: Menses Present. No: CVA Tenderness - Left, CVA Tenderness - Right Extremities: No: Cool, Cyanosis Edema: No Peripheral Pulses WNL: Yes Peripheral Pulses: Left Doralis Pedis: 2+, Right Dorsalis Pedis: 2+ Wound/Incision: Yes: Clean/Dry, Well Approximated Neurological: Yes: Alert, Oriented Labs: CBC, BMP 05/02/18 05:40 07/16/17 05:40 INR, PTT INR 1.24 (0.82-1.09) H 07/16/17 06:00 Problem List - Problems (1) Cholecystitis Assessment/Plan: 72 yo male MMP with biliary colic versus early acute cholecystitis, POD#2 s/p open cholecystectomy. H&H dropped 3 grams since surgery, CTA shows no hematoma or other signs of active bleeding, only large varices gastric an esophageal. Advance diet IVF hydration Type and screen adequate analgesia DVT prophylaxsis discontinue jansen GI consult - Eval for portal HTN and upper endoscopy Transfer to floor This patient is being observed in the ICU. Time spent reviewing chart, examining patient, talking with providers and/or family and documentation is 35 minutes Code(s): K81.9 - CHOLECYSTITIS, UNSPECIFIED (2) Abdominal pain Code(s): R10.9 - UNSPECIFIED ABDOMINAL PAIN Qualifiers: Abdominal location: unspecified location Qualified Code(s): R10.9 - Unspecified abdominal pain (3) Cholelithiasis Code(s): K80.20 - CALCULUS OF GALLBLADDER W/O CHOLECYSTITIS W/O OBSTRUCTION Qualifiers: Cholelithiasis location: gallbladder Cholecystitis presence: without cholecystitis Biliary obstruction: without biliary obstruction Qualified Code(s): K80.20 - Calculus of gallbladder without cholecystitis without obstruction (4) UTI (lower urinary tract infection) Code(s): N39.0 - URINARY TRACT INFECTION, SITE NOT SPECIFIED
[2017-07-16] MEDS ORDERED: PT OWN MED DRAWER 7, Y5N ONE (10:23)
[2017-07-16] MEDS: PANTOPRAZOLE SODIUM 40 MG VIAL IVPUSH SCH (10:35)
[2017-07-16] MEDS: POLYETHYLENE GLYCOL 3350 119 GM BTL PO SCH (10:35)
[2017-07-16] MEDS: NAPH,MB-DB/K PH,MBDB POWDER PACKET PO SCH ×2 (10:35→21:19)
[2017-07-16] MEDS: ATENOLOL 25 MG TABLET (FP) PO SCH (10:35)
--- NOTE | 2017-07-16 11:03 | PN ---
Teaching Attending Note Name of Resident: Monik Napier ATTENDING PHYSICIAN STATEMENT I saw and evaluated the patient. I reviewed the resident's note and discussed the case with the resident. I agree with the resident's findings and plan as documented. SUBJECTIVE: Pt seen and examined in the ICU. Flatus without bowel movement. H/H dropping. CTA done this AM, official read pending but prelim showing possible gastric varices. Denies abdominal pain, nausea or vomiting. No shortness of breath or chest pain. OBJECTIVE: Last Vital Signs Temp Pulse Resp BP Pulse Ox 99.2 F 71 19 102/65 95 07/16/17 06:00 07/16/17 08:00 07/16/17 08:00 07/16/17 08:00 07/15/17 20:17 Intake & Output 07/13/17 07/14/17 07/15/17 07/16/17 23:59 23:59 23:59 23:59 Intake Total 0 7700 3607 1700 Output Total 850 1710 1580 1260 Balance -850 5990 2027 440 Weight 73.482 kg 74.389 kg Gen: NAD at rest Heart: RRR Lung: decreased breath sounds at the bases Abd: soft, appropriately tender, +drain with serosanguinous fluid Ext: no edema CBC, BMP 07/16/17 05:40 07/16/17 05:40 Active Medications Acetaminophen (Ofirmev Injection -) 1,000 mg IVPB Q6H PRN PRN Reason: PAIN LEVEL 1-3 Atenolol (Tenormin -) 25 mg PO DAILY [facility] Last Admin: 07/16/17 10:35 Dose: 25 mg Atorvastatin Calcium (Lipitor -) 20 mg PO [facility] Last Admin: 07/15/17 21:31 Dose: 20 mg Chlorhexidine Gluconate (Hibiclens For Decolonization -) 1 applic TP HS [facility] Last Admin: 07/15/17 21:31 Dose: 1 applic Hydromorphone HCl (Dilaudid Licensed Certified Orthotist -) 10 mg UTILITY BAG ASSEMBLER UTILITY BAG ASSEMBLER [facility] PRN Reason: Protocol Stop: 07/17/17 13:14 Last Admin: 07/14/17 12:20 Dose: 10 mg Lactated Ringer's (Lactated Ringers Solution) 1,000 mls @ 125 mls/hr IV ASDIR [facility] Last Admin: 07/15/17 18:26 Dose: 125 mls/hr Piperacillin Sod/Tazobactam (Sod 4.5 gm/ Dextrose) 100 mls @ 200 mls/hr IVPB Q8H-IV [facility] PRN Reason: Protocol Last Admin: 07/16/17 10:36 Dose: 200 mls/hr Mupirocin (Bactroban Ointment (For Decolonization) -) 1 applic NS BID [facility] Stop: 07/19/17 21:59 Last Admin: 07/15/17 21:32 Dose: 1 applic Ondansetron HCl (Zofran Injection) 4 mg IVPUSH Q6H PRN PRN Reason: NAUSEA Pantoprazole Sodium (Protonix Iv) 40 mg IVPUSH DAILY [facility] Last Admin: 07/16/17 10:35 Dose: 40 mg Polyethylene Glycol (Miralax (For Daily Use) -) 17 gm PO DAILY [facility] Last Admin: 07/16/17 10:35 Dose: 17 grams Potassium Phos/Sodium Phos (Phos-Nak Packet -) 1 packet PO BID [facility] Stop: 07/16/17 22:01 Last Admin: 07/16/17 10:35 Dose: 1 packet Simethicone (Mylicon Liquid -) 40 mg PO QID PRN PRN Reason: INDIGESTION ASSESSMENT AND PLAN: Acute Cholecystitis Sepsis s/p Open Cholecystectomy r/o GI Bleed Acute Blood Loss Anemia HTN Hyperlipidemia h/o DVT/PE - continue antibiotics - monitor H/H - transfuse as needed - GI eval - monitor urine output, creatinine - pain control - incentive spirometry - O2 to keep SpO2 >90% - mechanical DVT prophylaxis - continue ICU monitoring critical care time spent in reviewing chart, evaluating patient and formulating plan 35 min
[2017-07-16 11:51] LABS: HEMATOCRIT 29.6 % (35.4-49); HEMOGLOBIN 10.2 GM/dL (11.7-16.9); MCH 32.8 pg (25.7-33.7); MCHC 34.6 g/dl (32.0-35.9); MEAN CELL VOLUME 94.9 fl (80-96); MEAN PLT VOLUME 7.6 fl (7.5-11.1); PLATELET COUNT 135 K/MM3 (134-434); RBC 3.12 M/mm3 (4.00-5.60); RDW 13.2 % (11.9-15.9); WHITE BLOOD COUNT 6.9 K/mm3 (4.0-10.0)
[2017-07-16] MEDS: MUPIROCIN 2% TOPICAL OINTMENT FOR DECOLONIZATION NS SCH ×2 (11:54→22:36)
--- NOTE | 2017-07-16 12:02 | PN ---
Physical Exam: SUBJECTIVE: Patient seen and examined in the ICU. Pt endorses abdominal pain, but declines additional pain medication. Hgb trending down. Abd CTA done with prelim read showing possible gastric varicosities. Pt tolerating clear liquid diet. Pt reports (+) flatus, (-) BM. Pt denies chest pain, sob, headache, fever, chills. No events overnight. OBJECTIVE: Vital Signs Period Temp Pulse Resp BP Sys/Gallagher Pulse Ox Last 24 Hr 98.6 F-99.9 F 66-85 10-21 102-138/52-75 95 GENERAL: Awake, alert, and fully oriented, in no acute distress. LUNGS: Breath sounds equal, clear to auscultation bilaterally. No wheezes, and no crackles. No accessory muscle use. HEART: Regular rate and rhythm, normal S1 and S2 without murmur, rub or gallop. ABDOMEN: Soft, +distended, +appropriate tenderness to palpation, no guarding. Surgical dressing with some blood soaking through. LISA drain with serosanguinous fluid. LOWER EXTREMITIES: Warm, well-perfused. No calf tenderness. No peripheral edema. PSYCHIATRIC: Cooperative. Good eye contact. Appropriate mood and affect. Laboratory Results - last 24 hr 07/14/17 07/15/17 07/15/17 09:30 15:20 21:30 WBC 9.4 8.3 RBC 3.17 L 3.10 L Hgb 10.4 L 10.1 L Hct 30.1 L 29.5 L MCV 94.9 95.3 MCH 32.7 32.7 MCHC 34.5 34.3 RDW 13.7 13.8 Plt Count 138 130 L MPV 8.3 7.8 Neutrophils % 84.6 H 84.3 H Lymphocytes % 5.6 L D 6.8 L D Monocytes % 9.7 8.7 Eosinophils % 0.0 0.1 D Basophils % 0.1 D 0.1 PT with INR INR Sodium Potassium Chloride Carbon Dioxide Anion Gap BUN Creatinine Creat Clearance w eGFR Random Glucose Calcium Phosphorus Magnesium Total Bilirubin AST ALT Alkaline Phosphatase Total Protein Albumin Blood Type A POSITIVE Crossmatch See Detail 07/16/17 07/16/17 07/16/17 05:40 05:40 06:00 WBC 5.8 D RBC 2.93 L Hgb 9.6 L Hct 27.6 L MCV 94.5 MCH 33.0 MCHC 34.9 RDW 13.2 Plt Count 115 L MPV 8.0 Neutrophils % 82.1 Lymphocytes % 8.2 D Monocytes % 9.1 Eosinophils % 0.4 D Basophils % 0.2 PT with INR 14.00 H INR 1.24 H Sodium 142 Potassium 4.1 Chloride 103 Carbon Dioxide 33 H Anion Gap 6 L BUN 7 D Creatinine 0.5 L D Creat Clearance w eGFR > 60 Random Glucose 108 H Calcium 7.9 L Phosphorus 1.3 L D Magnesium 1.9 Total Bilirubin 1.7 H D AST 27 D ALT 37 D Alkaline Phosphatase 31 L Total Protein 4.5 L Albumin 2.2 L Blood Type Crossmatch Active Medications Generic Name Dose Route Start Last Admin Trade Name Freq PRN Reason Stop Dose Admin Acetaminophen 1,000 mg 07/14/17 16:57 Ofirmev Injection - IVPB Q6H PRN PAIN LEVEL 1-3 Atenolol 25 mg 07/15/17 10:00 07/16/17 10:35 Tenormin - PO 25 mg DAILY [facility] Administration Atorvastatin Calcium 20 mg 07/14/17 22:00 07/15/17 21:31 Lipitor - PO 20 mg HS [facility] Administration Chlorhexidine Gluconate 1 applic 07/14/17 22:00 07/15/17 21:31 Hibiclens For Decolonization - TP 1 applic HS [facility] Administration Hydromorphone HCl 10 mg 07/14/17 13:15 07/14/17 12:20 Dilaudid Stitch Cleaner - COMPUTER SCIENCES PROFESSOR 07/17/17 13:14 10 mg COMPUTER SCIENCES PROFESSOR [facility] Administration Protocol Lactated Ringer's 1,000 mls @ 125 mls/hr 07/14/17 12:43 07/15/17 18:26 Lactated Ringers Solution IV 125 mls/hr ASDIR [facility] Administration Piperacillin Sod/Tazobactam 100 mls @ 200 mls/hr 07/14/17 14:00 07/16/17 10: 36 Sod 4.5 gm/ Dextrose IVPB 200 mls/hr Q8H-IV [facility] Administration Protocol Mupirocin 1 applic 07/14/17 22:00 07/15/17 21:32 Bactroban Ointment (For Decolonization) - NS 07/19/17 21:59 1 applic BID [facility] Administration Ondansetron HCl 4 mg 07/14/17 12:43 Zofran Injection IVPUSH Q6H PRN NAUSEA Pantoprazole Sodium 40 mg 07/15/17 10:00 07/16/17 10:35 Protonix Iv IVPUSH 40 mg DAILY [facility] Administration Polyethylene Glycol 17 gm 07/15/17 10:00 07/16/17 10:35 Miralax (For Daily Use) - PO 17 grams DAILY [facility] Administration Potassium Phos/Sodium Phos 1 packet 07/16/17 10:00 07/16/17 10:35 Phos-Nak Packet - PO 07/16/17 22:01 1 packet BID [facility] Administration Simethicone 40 mg 07/14/17 12:43 Mylicon Liquid - PO QID PRN INDIGESTION ASSESSMENT/PLAN: 72M with PMH of htn, hld, DVT and PE (Right LE 11/2016, completed AC 03/2017), presented with abdominal pain, found to have acute cholecystitis, s/p cholecystectomy (laproscopic converted to open) complicated by intra-op bleeding. # sepsis 2/2 acute cholecystitis - s/p open cholecystectomy by Dr. Dominguez on 07/14 - POD #2 - post-op care per Surgery (Dr. Dominguez): type and screen, f/u Abd CTA, f/u CBC , D/C jansen - leukocytosis resolved - Day 3 of IV Zosyn - Zofran prn for nausea - incentive spirometry - Dilaudid pump and Ofirmev prn for pain control - Miralax daily for bowel regimen - monitor UOP # acute blood loss anemia - GI consult - for portal htn and possible EGD - s/p 2U PRBCs intra-op - monitor CBC - monitor for overt s/s of bleeding - transfuse prn # hld - continue home med of Lipitor # htn - continue home med of Tenormin # FEN/ppx - Fluids: LR @ 125 ml/hr - Electrolytes: hypophosphatemia repleted with 2 neutra-phos packets, continue to monitor - Nutrition: regular - DVT ppx with yahaira SCDs - GI ppx with Protonix Visit type - Emergency Visit Emergency Visit: Yes ED Registration Date: 07/13/17 Care time: The patient presented to the Emergency Department on the above date and was hospitalized for further evaluation of their emergent condition. - New Patient This patient is new to me today: No - Critical Care Critical Care patient: Yes Total Critical Care Time (in minutes): 40 Critical Care Statement: The care of this patient involved high complexity decision making to prevent further life threatening deterioration of the patient 's condition and/or to evaluate & treat vital organ system(s) failure or risk of failure.
[2017-07-16 12:49] LABS: URINE APPEARANCE CLEAR; URINE BILIRUBIN NEGATIVE (<2.0 mg/dL); URINE COLOR LTYELLOW; URINE GLUCOSE (UA) NEGATIVE (NEGATIVE); URINE KETONE NEGATIVE (NEGATIVE); URINE LEUK ESTERASE NEGATIVE (NEGATIVE); URINE NITRITE NEGATIVE (NEGATIVE); URINE PROTEIN NEGATIVE (NEGATIVE); URINE UROBILINOGEN NEGATIVE mg/dL (0.2-1.0)
--- NOTE | 2017-07-16 13:10 | PN ---
Teaching Attending Note Name of Resident: Oli Munoz ATTENDING PHYSICIAN STATEMENT I saw and evaluated the patient. I reviewed the resident's note and discussed the case with the resident. I agree with the resident's findings and plan as documented. SUBJECTIVE: No fever or chills. RUQ pain. no N/V. no events over night . No BM since admission . OBJECTIVE: NAD , awake and cooperative CV: RRR Lungs: CTAB Abd: soft, TTP in RUQ. first dressing removed a LISA drain in place with a dressing soaked with clear-greenish fluid. Nl BS . drainage bag with blood in it Ext: no edema or erythema ASSESSMENT AND PLAN: 72 y/o man with h/o HTn, DVT/PE in 12/01 off AC now who presented with RUQ pain and was found to have a scarred gall bladder with aberrant vasculature during cholecystectomy 1- Biliary colic VS early cholecystitis. s/p CCY . with aberrant vascular supply. HB dropped since sx probably due to the big bloo dloss during sx and the continuous LISA bloody drainage and IVF . - d/w Dr. Sharma. - blood transfusion - CTA prelim read by Sx, no active bleed. await final report - monitor LISA out put . - cont current diet - cont pain control 2- Transaminitis : trended down.. cont to monitor 3- HTN: cont Atenolol. 4- Constipation . bowel regimen DVT PX : SCDs
--- NOTE | 2017-07-16 13:20 | CON.GI ---
Consult Consult Specialty:: GI Reason for Consultation:: drop in hemoglobin - History of Present Illness History of Present Illness: chart reviewed. Events noted. A 72-year-old gentleman status post cholecystectomy postop day 3 noted to have 3 grams drop in hemoglobin however no external stigmata of gastrointestinal luminal blood loss. Diagnostic CT scan revealed esophageal and gastric varices. there is no history of chronic alcohol abuse, or liver disease. On exam, patient appears to be comfortable, complaining of mild epigastric, scar related pain. Denies nausea, vomiting, diarrhea, hematemesis, hematochezia. LISA drains serosanguineous fluid as of this morning. - History Source History Provided By: Patient, Medical Record, Caregiver - Past Medical History Cardio/Vascular: Yes: Deep Vein Thrombosis, HTN, Hyperlipdemia Pulmonary: Yes: Pulmonary Embolus - Alcohol/Substance Use Hx Alcohol Use: No - Smoking History Smoking history: Former smoker Have you smoked in the past 12 months: No Aproximately how many cigarettes per day: 0 - Social History History of Recent Travel: No Home Medications - Allergies Allergies/Adverse Reactions: Allergies Allergy/AdvReac Type Severity Reaction Status Date / Time No Known Allergies Allergy Verified 07/13/17 02:45 - Home Medications Home Medications: Ambulatory Orders Atenolol [Tenormin] 25 mg PO DAILY 09/18/12 Aspirin 162 mg PO DAILY 07/13/17 Atorvastatin Ca [Lipitor] 20 mg PO HS 07/13/17 Omeprazole 40 mg PO DAILY 07/13/17 Family Disease History - Family Disease History Family History: Unremarkable (As per H&P and HPI) Review of Systems Findings/Remarks: as per H&P and HPI Physical Exam-GI Vital Signs: Vital Signs Temperature 99.1 F 07/16/17 10:00 Pulse Rate 75 07/16/17 12:00 Respiratory Rate 16 07/16/17 12:00 Blood Pressure 95/65 07/16/17 12:00 O2 Sat by Pulse Oximetry (%) 95 07/16/17 09:00 Constitutional: Yes: Well Nourished, No Distress, Calm Eyes: Yes: Conjunctiva Clear HENT: Yes: Atraumatic Neck: Yes: Supple Cardiovascular: Yes: Regular Rate and Rhythm Respiratory: Yes: Regular Gastrointestinal Inspection: Yes: Distention ...Palpate: Yes: Soft, Tenderness, Epigastium Neurological: Yes: Alert, Oriented Labs: CBC, BMP 07/16/17 11:36 07/16/17 05:40 INR, PTT INR 1.24 (0.82-1.09) H 07/16/17 06:00 Laboratory Last Values WBC 6.9 K/mm3 (4.0-10.0) 07/16/17 11:36 RBC 3.12 M/mm3 (4.00-5.60) L 07/16/17 11:36 Hgb 10.2 GM/dL (11.7-16.9) L 07/16/17 11:36 Hct 29.6 % (35.4-49) L 07/16/17 11:36 MCV 94.9 fl (80-96) 07/16/17 11:36 MCH 32.8 pg (25.7-33.7) 07/16/17 11:36 MCHC 34.6 g/dl (32.0-35.9) 07/16/17 11:36 RDW 13.2 % (11.9-15.9) 07/16/17 11:36 Plt Count 135 K/MM3 (134-434) 07/16/17 11:36 MPV 7.6 fl (7.5-11.1) 07/16/17 11:36 Neutrophils % 82.1 % (42.8-82.8) 07/16/17 05:40 Lymphocytes % 8.2 % (8-40) D 07/16/17 05:40 Monocytes % 9.1 % (3.8-10.2) 07/16/17 05:40 Eosinophils % 0.4 % (0-4.5) D 07/16/17 05:40 Basophils % 0.2 % (0-2.0) 07/16/17 05:40 PT with INR 14.00 SEC (9.7-13.0) H 07/16/17 06:00 INR 1.24 (0.82-1.09) H 07/16/17 06:00 PTT (Actin FS) 35.1 SECONDS (26.9-34.4) H D 07/13/17 03:00 D-Dimer 559 ng/ml (0-500) H 07/13/17 03:00 Sodium 142 mmol/L (136-145) 07/16/17 05:40 Potassium 4.1 mmol/L (3.5-5.1) 07/16/17 05:40 Chloride 103 mmol/L (98-107) 07/16/17 05:40 Carbon Dioxide 33 mmol/L (21-32) H 07/16/17 05:40 Anion Gap 6 (8-16) L 07/16/17 05:40 BUN 7 mg/dL (7-18) D 07/16/17 05:40 Creatinine 0.5 mg/dL (0.7-1.3) L D 07/16/17 05:40 Creat Clearance w eGFR > 60 (>60) 07/16/17 05:40 POC Glucometer 143.66267 UNITS (80-120) 07/13/17 07:34 Random Glucose 108 mg/dL (74-106) H 07/16/17 05:40 Calcium 7.9 mg/dL (8.5-10.1) L 07/16/17 05:40 Phosphorus 1.3 mg/dL (2.5-4.9) L D 07/16/17 05:40 Magnesium 1.9 mg/dL (1.8-2.4) 07/16/17 05:40 Total Bilirubin 1.7 mg/dL (0.2-1.0) H D 07/16/17 05:40 AST 27 U/L (15-37) D 07/16/17 05:40 ALT 37 U/L (12-78) D 07/16/17 05:40 Alkaline Phosphatase 31 U/L (45-117) L 07/16/17 05:40 Troponin I 0.02 ng/ml (0.00-0.05) 07/14/17 12:15 Total Protein 4.5 g/dl (6.4-8.2) L 07/16/17 05:40 Albumin 2.2 g/dl (3.4-5.0) L 07/16/17 05:40 Total Amylase 31 U/L (25-115) 07/13/17 03:00 Lipase 48 U/L (73-393) L 07/13/17 03:00 Urine Color Ltyellow 07/16/17 12:10 Urine Appearance Clear 07/16/17 12:10 Urine pH 5.0 (5.0-8.0) 07/16/17 12:10 Ur Specific [place] > 1.060 (1.001-1.035) H 07/16/17 12:10 Urine Protein Negative (NEGATIVE) 07/16/17 12:10 Urine Glucose (UA) Negative (NEGATIVE) 07/16/17 12:10 Urine Ketones Negative (NEGATIVE) 07/16/17 12:10 Urine Blood Negative (NEGATIVE) 07/16/17 12:10 Urine Nitrite Negative (NEGATIVE) 07/16/17 12:10 Urine Bilirubin Negative (<2.0 mg/dL) 07/16/17 12:10 Urine Urobilinogen Negative mg/dL (0.2-1.0) 07/16/17 12:10 Ur Leukocyte Esterase Negative (NEGATIVE) 07/16/17 12:10 Blood Type A POSITIVE 07/16/17 11:36 Antibody Screen Negative 07/16/17 11:36 Crossmatch See Detail 07/14/17 09:30 Crossmatch IS Only See Detail 07/13/17 06:16 Imaging - Results Cat Scan: Pending Problem List - Problems (1) Acute blood loss anemia Code(s): D62 - ACUTE POSTHEMORRHAGIC ANEMIA Assessment/Plan a 72-year-old male POD3. Noted to have postop acute blood loss anemia without stigmata of gastrointestinal luminal bleeding. A CT revealed esophagogastric varices. No history of liver disease, chronic alcohol abuse, splenic range from boluses, pancreatitis. LISA with bloody fluid. Continue close monitoring. Follow formal CT report. Plan EGD to assess esophageal and gastric varices in the next 1-2 days, or sooner if signs of active gastrointestinal bleed..
--- NOTE | 2017-07-16 13:50 | PN ---
Progress Note, Physician Chief Complaint: POD #2 s/p open [place] - Current Medication List Current Medications: Active Medications Acetaminophen (Ofirmev Injection -) 1,000 mg IVPB Q6H PRN PRN Reason: PAIN LEVEL 1-3 Atenolol (Tenormin -) 25 mg PO DAILY [facility] Last Admin: 07/16/17 10:35 Dose: 25 mg Atorvastatin Calcium (Lipitor -) 20 mg PO HS [facility] Last Admin: 07/15/17 21:31 Dose: 20 mg Chlorhexidine Gluconate (Hibiclens For Decolonization -) 1 applic TP HS [facility] Last Admin: 07/15/17 21:31 Dose: 1 applic Hydromorphone HCl (Dilaudid Senior Web Architect -) 10 mg TRAVEL PT TRAVEL PT [facility] PRN Reason: Protocol Stop: 07/17/17 13:14 Last Admin: 07/14/17 12:20 Dose: 10 mg Lactated Ringer's (Lactated Ringers Solution) 1,000 mls @ 125 mls/hr IV ASDIR [facility] Last Admin: 07/15/17 18:26 Dose: 125 mls/hr Piperacillin Sod/Tazobactam (Sod 4.5 gm/ Dextrose) 100 mls @ 200 mls/hr IVPB Q8H-IV [facility] PRN Reason: Protocol Last Admin: 07/16/17 10:36 Dose: 200 mls/hr Mupirocin (Bactroban Ointment (For Decolonization) -) 1 applic NS BID [facility] Stop: 07/19/17 21:59 Last Admin: 07/16/17 11:54 Dose: Not Given Ondansetron HCl (Zofran Injection) 4 mg IVPUSH Q6H PRN PRN Reason: NAUSEA Pantoprazole Sodium (Protonix Iv) 40 mg IVPUSH DAILY [facility] Last Admin: 07/16/17 10:35 Dose: 40 mg Polyethylene Glycol (Miralax (For Daily Use) -) 17 gm PO DAILY [facility] Last Admin: 07/16/17 10:35 Dose: 17 grams Potassium Phos/Sodium Phos (Phos-Nak Packet -) 1 packet PO BID [facility] Stop: 07/16/17 22:01 Last Admin: 07/16/17 10:35 Dose: 1 packet Simethicone (Mylicon Liquid -) 40 mg PO QID PRN PRN Reason: INDIGESTION - Objective Vital Signs: Vital Signs Temperature 99.1 F 07/16/17 10:00 Pulse Rate 75 07/16/17 12:00 Respiratory Rate 16 07/16/17 12:00 Blood Pressure 95/65 07/16/17 12:00 O2 Sat by Pulse Oximetry (%) 95 07/16/17 09:00 Labs: CBC, BMP 07/16/17 11:36 07/16/17 05:40 INR, PTT INR 1.24 (0.82-1.09) H 07/16/17 06:00 Assessment/Plan Pt says he's much more comfortable today. Will continue TRAVEL PT for now
--- NOTE | 2017-07-16 14:29 | PN ---
Physical Exam: SUBJECTIVE: Patient seen and examined No acute events overnight. Patient states pain is well controlled. OBJECTIVE: Vital Signs Period Temp Pulse Resp BP Sys/Gallagher Pulse Ox Last 24 Hr 98.9 F-99.9 F 66-85 10-21 95-138/52-75 95-95 GENERAL: Awake, alert, and fully oriented, in no acute distress. HEAD: Normal with no signs of trauma. LUNGS: Breath sounds equal, clear to auscultation bilaterally. No wheezes, and no crackles. No accessory muscle use. HEART: Regular rate and rhythm, normal S1 and S2 without murmur, rub or gallop. ABDOMEN: Soft, right sided tenderness, normoactive bowel sounds, no guarding, no rebound, no masses. No hepatomegaly or splenomegaly. negative mc's, surgical dressing in place-- completely saturated. +LISA drain in place with marlen dark red blood LOWER EXTREMITIES: warm, well-perfused. No calf tenderness. No peripheral edema. PSYCHIATRIC: Cooperative. Good eye contact. Appropriate mood and affect. SKIN: Warm, dry, normal turgor, no rashes or lesions noted, normal capillary refill. Laboratory Results - last 24 hr 07/14/17 07/15/17 07/15/17 09:30 15:20 21:30 WBC 9.4 8.3 RBC 3.17 L 3.10 L Hgb 10.4 L 10.1 L Hct 30.1 L 29.5 L MCV 94.9 95.3 MCH 32.7 32.7 MCHC 34.5 34.3 RDW 13.7 13.8 Plt Count 138 130 L MPV 8.3 7.8 Neutrophils % 84.6 H 84.3 H Lymphocytes % 5.6 L D 6.8 L D Monocytes % 9.7 8.7 Eosinophils % 0.0 0.1 D Basophils % 0.1 D 0.1 PT with INR INR Sodium Potassium Chloride Carbon Dioxide Anion Gap BUN Creatinine Creat Clearance w eGFR Random Glucose Calcium Phosphorus Magnesium Total Bilirubin AST ALT Alkaline Phosphatase Total Protein Albumin Urine Color Urine Appearance Urine pH Ur Specific [place] Urine Protein Urine Glucose (UA) Urine Ketones Urine Blood Urine Nitrite Urine Bilirubin Urine Urobilinogen Ur Leukocyte Esterase Blood Type A POSITIVE Antibody Screen Crossmatch See Detail 07/16/17 07/16/17 07/16/17 05:40 05:40 06:00 WBC 5.8 D RBC 2.93 L Hgb 9.6 L Hct 27.6 L MCV 94.5 MCH 33.0 MCHC 34.9 RDW 13.2 Plt Count 115 L MPV 8.0 Neutrophils % 82.1 Lymphocytes % 8.2 D Monocytes % 9.1 Eosinophils % 0.4 D Basophils % 0.2 PT with INR 14.00 H INR 1.24 H Sodium 142 Potassium 4.1 Chloride 103 Carbon Dioxide 33 H Anion Gap 6 L BUN 7 D Creatinine 0.5 L D Creat Clearance w eGFR > 60 Random Glucose 108 H Calcium 7.9 L Phosphorus 1.3 L D Magnesium 1.9 Total Bilirubin 1.7 H D AST 27 D ALT 37 D Alkaline Phosphatase 31 L Total Protein 4.5 L Albumin 2.2 L Urine Color Urine Appearance Urine pH Ur Specific [place] Urine Protein Urine Glucose (UA) Urine Ketones Urine Blood Urine Nitrite Urine Bilirubin Urine Urobilinogen Ur Leukocyte Esterase Blood Type Antibody Screen Crossmatch 07/16/17 07/16/17 07/16/17 11:36 11:36 12:10 WBC 6.9 RBC 3.12 L Hgb 10.2 L Hct 29.6 L MCV 94.9 MCH 32.8 MCHC 34.6 RDW 13.2 Plt Count 135 MPV 7.6 Neutrophils % Lymphocytes % Monocytes % Eosinophils % Basophils % PT with INR INR Sodium Potassium Chloride Carbon Dioxide Anion Gap BUN Creatinine Creat Clearance w eGFR Random Glucose Calcium Phosphorus Magnesium Total Bilirubin AST ALT Alkaline Phosphatase Total Protein Albumin Urine Color Ltyellow Urine Appearance Clear Urine pH 5.0 Ur Specific [place] > 1.060 H Urine Protein Negative Urine Glucose (UA) Negative Urine Ketones Negative Urine Blood Negative Urine Nitrite Negative Urine Bilirubin Negative Urine Urobilinogen Negative Ur Leukocyte Esterase Negative Blood Type A POSITIVE Antibody Screen Negative Crossmatch Active Medications Generic Name Dose Route Start Last Admin Trade Name Freq PRN Reason Stop Dose Admin Acetaminophen 1,000 mg 07/14/17 16:57 Ofirmev Injection - IVPB Q6H PRN PAIN LEVEL 1-3 Atenolol 25 mg 07/15/17 10:00 07/16/17 10:35 Tenormin - PO 25 mg DAILY [facility] Administration Atorvastatin Calcium 20 mg 07/14/17 22:00 07/15/17 21:31 Lipitor - PO 20 mg HS [facility] Administration Chlorhexidine Gluconate 1 applic 07/14/17 22:00 07/15/17 21:31 Hibiclens For Decolonization - TP 1 applic HS [facility] Administration Docusate Sodium 100 mg 07/16/17 22:00 Colace - PO TID [facility] Hydromorphone HCl 10 mg 07/14/17 13:15 07/14/17 12:20 Dilaudid Fish Fryer - DRAWBRIDGE TENDER 07/17/17 13:14 10 mg DRAWBRIDGE TENDER [facility] Administration Protocol Lactated Ringer's 1,000 mls @ 125 mls/hr 07/14/17 12:43 07/15/17 18:26 Lactated Ringers Solution IV 125 mls/hr ASDIR [facility] Administration Piperacillin Sod/Tazobactam 100 mls @ 200 mls/hr 07/14/17 14:00 07/16/17 10: 36 Sod 4.5 gm/ Dextrose IVPB 200 mls/hr Q8H-IV [facility] Administration Protocol Mupirocin 1 applic 07/14/17 22:00 07/16/17 11:54 Bactroban Ointment (For Decolonization) - NS 07/19/17 21:59 Not Given BID [facility] Ondansetron HCl 4 mg 07/14/17 12:43 Zofran Injection IVPUSH Q6H PRN NAUSEA Pantoprazole Sodium 40 mg 07/15/17 10:00 07/16/17 10:35 Protonix Iv IVPUSH 40 mg DAILY [facility] Administration Polyethylene Glycol 17 gm 07/16/17 22:00 Miralax (For Daily Use) - PO BID [facility] Potassium Phos/Sodium Phos 1 packet 07/16/17 10:00 07/16/17 10:35 Phos-Nak Packet - PO 07/16/17 22:01 1 packet BID [facility] Administration Simethicone 40 mg 07/14/17 12:43 Mylicon Liquid - PO QID PRN INDIGESTION ASSESSMENT/PLAN: 72 yr old man with abdominal pain admitted for abdominal pain. #abominal pain, POD 3 s/p open cholecystectomy on 07/14 -Day 3 of Zosyn -protonix 40 mg po acbk -miralax daily -LR @ 125 cc/hr -Dilaudid DRAWBRIDGE TENDER -simethicone/zofran/tylenol -Surgery/ID consult -Abd CTA -- gastric varicosities per icu team, GI consult. Will need EGD in a few days -incentive spirometer #acute blood loss anemia -monitor repeat cbc -drop in hgb over last 24 hours -Patient received 2 units post op of prbc -GI consult #elevated AST , improved -continue to monitor #HTN - continue home medication tenormin 25mg #HLD - continue lipitor #FEN/GI -LR @ 125 cc/hr -monitor -Regular diet #Ppx -scd -protonix Visit type - Emergency Visit Emergency Visit: Yes ED Registration Date: 07/13/17 Care time: The patient presented to the Emergency Department on the above date and was hospitalized for further evaluation of their emergent condition. - New Patient This patient is new to me today: No - Critical Care Critical Care patient: Yes Total Critical Care Time (in minutes): 39 Critical Care Statement: The care of this patient involved high complexity decision making to prevent further life threatening deterioration of the patient 's condition and/or to evaluate & treat vital organ system(s) failure or risk of failure.
[2017-07-16] MEDS ORDERED: POLYETHYLENE GLYCOL 3350 119 GM BTL PO ONE (14:45)
--- NOTE | 2017-07-16 14:50 | PN ---
Progress Note, Physician History of Present Illness: patient feeling much better starting to pass flatus started on liquids - Current Medication List Current Medications: Active Medications Acetaminophen (Ofirmev Injection -) 1,000 mg IVPB Q6H PRN PRN Reason: PAIN LEVEL 1-3 Atenolol (Tenormin -) 25 mg PO DAILY [facility] Last Admin: 07/16/17 10:35 Dose: 25 mg Atorvastatin Calcium (Lipitor -) 20 mg PO [facility] Last Admin: 07/15/17 21:31 Dose: 20 mg Chlorhexidine Gluconate (Hibiclens For Decolonization -) 1 applic TP HS [facility] Last Admin: 07/15/17 21:31 Dose: 1 applic Docusate Sodium (Colace -) 100 mg PO TID [facility] Hydromorphone HCl (Dilaudid Route Sales Associate -) 10 mg REGISTERED RESPIRATORY TECHNICIAN REGISTERED RESPIRATORY TECHNICIAN [facility] PRN Reason: Protocol Stop: 07/17/17 13:14 Last Admin: 07/14/17 12:20 Dose: 10 mg Lactated Ringer's (Lactated Ringers Solution) 1,000 mls @ 125 mls/hr IV ASDIR [facility] Last Admin: 07/15/17 18:26 Dose: 125 mls/hr Piperacillin Sod/Tazobactam (Sod 4.5 gm/ Dextrose) 100 mls @ 200 mls/hr IVPB Q8H-IV [facility] PRN Reason: Protocol Last Admin: 07/16/17 10:36 Dose: 200 mls/hr Mupirocin (Bactroban Ointment (For Decolonization) -) 1 applic NS BID [facility] Stop: 07/19/17 21:59 Last Admin: 07/16/17 11:54 Dose: Not Given Ondansetron HCl (Zofran Injection) 4 mg IVPUSH Q6H PRN PRN Reason: NAUSEA Pantoprazole Sodium (Protonix Iv) 40 mg IVPUSH DAILY [facility] Last Admin: 07/16/17 10:35 Dose: 40 mg Polyethylene Glycol (Miralax (For Daily Use) -) 17 gm PO BID [facility] Potassium Phos/Sodium Phos (Phos-Nak Packet -) 1 packet PO BID [facility] Stop: 07/16/17 22:01 Last Admin: 07/16/17 10:35 Dose: 1 packet Simethicone (Mylicon Liquid -) 40 mg PO QID PRN PRN Reason: INDIGESTION - Objective Vital Signs: Vital Signs Temperature 99.1 F 07/16/17 10:00 Pulse Rate 75 07/16/17 12:00 Respiratory Rate 16 07/16/17 12:00 Blood Pressure 95/65 07/16/17 12:00 O2 Sat by Pulse Oximetry (%) 95 07/16/17 09:00 Constitutional: Yes: No Distress, Calm Cardiovascular: Yes: Regular Rate and Rhythm Respiratory: Yes: Regular, CTA Bilaterally Gastrointestinal: Yes: Soft, Hypoactive Bowel Sounds, Other (drain in place greenish discharge) Musculoskeletal: Yes: WNL Extremities: Yes: WNL Wound/Incision: Yes: Clean/Dry Neurological: Yes: Alert, Oriented Psychiatric: Yes: Alert, Oriented Labs: CBC, BMP 07/16/17 11:36 07/16/17 05:40 INR, PTT INR 1.24 (0.82-1.09) H 07/16/17 06:00 Assessment/Plan Problem List - Problems (1) Cholecystitis Code(s): K81.9 - CHOLECYSTITIS, UNSPECIFIED (2) Abdominal pain Code(s): R10.9 - UNSPECIFIED ABDOMINAL PAIN Qualifiers: Abdominal location: unspecified location Qualified Code(s): R10.9 - Unspecified abdominal pain (3) Cholelithiasis Code(s): K80.20 - CALCULUS OF GALLBLADDER W/O CHOLECYSTITIS W/O OBSTRUCTION Qualifiers: Cholelithiasis location: gallbladder Cholecystitis presence: without cholecystitis Biliary obstruction: without biliary obstruction Qualified Code(s): K80.20 - Calculus of gallbladder without cholecystitis without obstruction (4) UTI (lower urinary tract infection) Code(s): N39.0 - URINARY TRACT INFECTION, SITE NOT SPECIFIED drop in h and h noted,gi note noted plan hydration continue abx for now will d/w surgery will deescalate abx once patient more stable icu on caser shoe parts vital and h and h watch for drainage and fever rest as per surgery and icu cc time 40 min
--- NOTE | 2017-07-16 15:25 | OP ---
DATE OF OPERATION: DATE OF DICTATION: 07/16/2017 INTRAOPERATIVE CONSULTATION I was called in by General Surgery due to conversion to an open cholecystectomy. 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 Upon scrubbing in, the blood vessel had already been clamped with bulldogs. We released the bulldogs to see. 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 We went ahead and used 4-0 silk and tied the blood vessel proximally and distally, and then it was suture ligated. After letting the bulldogs off, there was no more bleeding, and General Surgery continued to proceed with the case. DARRIUS KINSEY DO [id number]
--- NOTE | 2017-07-16 15:38 | PATH ---
Surgical Pathology Report Patient Name: YOGESH MEJÍA [facility]. Rec. #: [id number] /Age/Gender: 1945 (Age: 72) / M Account: [id number] Location: ICU CABLE FORMER Taken: 07/14/2017 Received: 07/14/2017 Reported: 07/16/2017 Physicians: Neal Watson M.D. Specimen(s) Received GALLBLADDER Clinical History Cholecystitis, cholelithiasis Final Diagnosis GALLBLADDER, CHOLECYSTECTOMY: ACUTE AND CHRONIC HEMORRHAGIC CHOLECYSTITIS WITH CHOLELITHIASIS. Electronically Signed Twyla Nevarez M.D. Gross Description Received in formalin, labeled "gallbladder," is a 10.5 x 4.0 x 3.0 cm. gallbladder with a 0.2 cm. in length portion of cystic duct attached. The outer surface is moran purple with focal defects and varies from smooth to shaggy. The lumen contains brown bile and blood as well as 5 brown, irregular choleliths ranging from 0.9-2.0 cm in greatest dimension. The mucosa is hyperemic. The wall of the gallbladder ranges from 0.1-0.7 cm. in thickness. Wire Spring Relay Adjuster sections are submitted in one cassette. 07/14/201707/14/2017
[2017-07-16] MEDS: HYDROmorphone *PCA* 10MG/50ML DISP.SYRIN PCA SCH (17:24)
[2017-07-16] MEDS: LACTATED RINGERS SOLUTION 1,000 ML IV SCH (21:10)
[2017-07-16] MEDS: CHLORHEXIDINE GLUCONATE 4% CLEANSER FOR DECOLONIZATION TP SCH (21:18)
[2017-07-16] MEDS: DOCUSATE SODIUM 100 MG CAPSULE (FP) PO SCH (21:18)
[2017-07-16] MEDS: ATORVASTATIN CA 20 MG TABLET (FP) PO SCH (21:18)
[2017-07-16] MEDS ORDERED: POLYETHYLENE GLYCOL 3350 119 GM BTL PO SCH (22:00)
[2017-07-17] MEDS ORDERED: PIPERACILLIN/TAZOBACTAM 4.5 GM VIAL IVPB ONE ×3 (02:52→17:50)
[2017-07-17] MEDS ORDERED: DEXTROSE 5%-WATER 100 ML IVPB ONE ×3 (02:52→17:50)
[2017-07-17] MEDS: PIPERACILLIN/TAZOB 4.5 GM 4.5 GM in DEXTROSE 5%-WATER 100 ML IVPB SCH ×3 (02:54→18:29)
[2017-07-17] MEDS: DOCUSATE SODIUM 100 MG CAPSULE (FP) PO SCH ×3 (06:23→21:55)
[2017-07-17 06:30] LABS: HEMATOCRIT 28.7 % (35.4-49); HEMOGLOBIN 10.1 GM/dL (11.7-16.9); MCH 33.5 pg (25.7-33.7); MCHC 35.1 g/dl (32.0-35.9); MEAN CELL VOLUME 95.2 fl (80-96); MEAN PLT VOLUME 8.8 fl (7.5-11.1); PLATELET COUNT 155 K/MM3 (134-434); RBC 3.01 M/mm3 (4.00-5.60); RDW 13.3 % (11.9-15.9); WHITE BLOOD COUNT 8.1 K/mm3 (4.0-10.0)
[2017-07-17 06:50] LABS: INR 1.21 (0.82-1.09); PROTHROMBIN TIME (PATIENT) 13.7 SEC (9.7-13.0)
[2017-07-17] MEDS ORDERED: PSYLLIUM 5.85 GM PACKET PO SCH ×2 (07:00→14:00)
[2017-07-17 07:05] LABS: ANION GAP 8 (8-16); BLOOD UREA NITROGEN 6 mg/dL (7-18); CHLORIDE 101 mmol/L (98-107); CO2 31 mmol/L (21-32); GLUCOSE,RANDOM 102 mg/dL (74-106); MAGNESIUM 1.8 mg/dL (1.8-2.4); POTASSIUM 3.5 mmol/L (3.5-5.1); SODIUM 140 mmol/L (136-145)
[2017-07-17 07:08] LABS: BILIRUBIN,TOTAL 1.4 mg/dL (0.2-1.0); CREATININE 0.5 mg/dL (0.7-1.3); PHOSPHOROUS 2.4 mg/dL (2.5-4.9)
--- NOTE | 2017-07-17 07:45 | PN ---
Physical Exam: SUBJECTIVE: Patient seen and examined No acute events overnight. Patient having pain in area of left inguinal hernia. Patient still has not had a bowel movement and feels distended. OBJECTIVE: Vital Signs Period Temp Pulse Resp BP Sys/Gallagher Pulse Ox Last 24 Hr 99.0 F-99.4 F 66-87 15-21 92-124/58-78 95-95 GENERAL: Awake, alert, and fully oriented, in no acute distress. HEAD: Normal with no signs of trauma. NECK: +JVD LUNGS: Breath sounds equal, crackles at bases HEART: Regular rate and rhythm, normal S1 and S2 without murmur, rub or gallop. ABDOMEN: Firm, right sided tenderness, hyperactive bowel sounds, no guarding, no rebound, no masses. No hepatomegaly or splenomegaly. negative mc's, surgical dressing in place-- greenish fluid saturated. +LISA drain in place with marlen dark red blood - Firm mons pubis region consistent with hernia, tenderness to palpation. No pain along scrotum LOWER EXTREMITIES: warm, well-perfused. No calf tenderness. No peripheral edema. PSYCHIATRIC: Cooperative. Good eye contact. Appropriate mood and affect. SKIN: Warm, dry, normal turgor, no rashes or lesions noted, normal capillary refill. Laboratory Results - last 24 hr 07/14/17 07/16/17 07/16/17 09:30 05:40 11:36 WBC RBC Hgb Hct MCV MCH MCHC RDW Plt Count MPV PT with INR INR Sodium 142 Potassium 4.1 Chloride 103 Carbon Dioxide 33 H Anion Gap 6 L BUN 7 D Creatinine 0.5 L D Creat Clearance w eGFR > 60 Random Glucose 108 H Calcium 7.9 L Phosphorus 1.3 L D Magnesium 1.9 Total Bilirubin 1.7 H D AST 27 D ALT 37 D Alkaline Phosphatase 31 L Total Protein 4.5 L Albumin 2.2 L Urine Color Urine Appearance Urine pH Ur Specific [place] Urine Protein Urine Glucose (UA) Urine Ketones Urine Blood Urine Nitrite Urine Bilirubin Urine Urobilinogen Ur Leukocyte Esterase Blood Type A POSITIVE A POSITIVE Antibody Screen Negative Crossmatch See Detail 07/16/17 07/16/17 07/17/17 11:36 12:10 05:35 WBC 6.9 8.1 RBC 3.12 L 3.01 L Hgb 10.2 L 10.1 L Hct 29.6 L 28.7 L MCV 94.9 95.2 MCH 32.8 33.5 MCHC 34.6 35.1 RDW 13.2 13.3 Plt Count 135 155 MPV 7.6 8.8 D PT with INR INR Sodium Potassium Chloride Carbon Dioxide Anion Gap BUN Creatinine Creat Clearance w eGFR Random Glucose Calcium Phosphorus Magnesium Total Bilirubin AST ALT Alkaline Phosphatase Total Protein Albumin Urine Color Ltyellow Urine Appearance Clear Urine pH 5.0 Ur Specific [place] > 1.060 H Urine Protein Negative Urine Glucose (UA) Negative Urine Ketones Negative Urine Blood Negative Urine Nitrite Negative Urine Bilirubin Negative Urine Urobilinogen Negative Ur Leukocyte Esterase Negative Blood Type Antibody Screen Crossmatch 07/17/17 05:35 WBC RBC Hgb Hct MCV MCH MCHC RDW Plt Count MPV PT with INR 13.70 H INR 1.21 H Sodium Potassium Chloride Carbon Dioxide Anion Gap BUN Creatinine Creat Clearance w eGFR Random Glucose Calcium Phosphorus Magnesium Total Bilirubin AST ALT Alkaline Phosphatase Total Protein Albumin Urine Color Urine Appearance Urine pH Ur Specific [place] Urine Protein Urine Glucose (UA) Urine Ketones Urine Blood Urine Nitrite Urine Bilirubin Urine Urobilinogen Ur Leukocyte Esterase Blood Type Antibody Screen Crossmatch Active Medications Generic Name Dose Route Start Last Admin Trade Name Freq PRN Reason Stop Dose Admin Acetaminophen 1,000 mg 07/14/17 16:57 Ofirmev Injection - IVPB Q6H PRN PAIN LEVEL 1-3 Atenolol 25 mg 07/15/17 10:00 07/16/17 10:35 Tenormin - PO 25 mg DAILY [facility] Administration Atorvastatin Calcium 20 mg 07/14/17 22:00 07/16/17 21:18 Lipitor - PO 20 mg HS [facility] Administration Chlorhexidine Gluconate 1 applic 07/14/17 22:00 07/16/17 21:18 Hibiclens For Decolonization - TP 1 applic HS [facility] Administration Docusate Sodium 100 mg 07/16/17 22:00 07/17/17 06:23 Colace - PO 100 mg TID [facility] Administration Hydromorphone HCl 10 mg 07/14/17 13:15 07/16/17 17:24 Dilaudid Strategy Analyst - OPTICAL ADVISOR 07/17/17 13:14 10 mg OPTICAL ADVISOR [facility] Administration Protocol Lactated Ringer's 1,000 mls @ 125 mls/hr 07/14/17 12:43 07/16/17 21:10 Lactated Ringers Solution IV Not Given ASDIR [facility] Piperacillin Sod/Tazobactam 100 mls @ 200 mls/hr 07/14/17 14:00 07/17/17 02: 54 Sod 4.5 gm/ Dextrose IVPB 200 mls/hr Q8H-IV [facility] Administration Protocol Mupirocin 1 applic 07/14/17 22:00 07/16/17 22:36 Bactroban Ointment (For Decolonization) - NS 07/19/17 21:59 Not Given BID [facility] Ondansetron HCl 4 mg 07/14/17 12:43 Zofran Injection IVPUSH Q6H PRN NAUSEA Pantoprazole Sodium 40 mg 07/15/17 10:00 07/16/17 10:35 Protonix Iv IVPUSH 40 mg DAILY [facility] Administration Polyethylene Glycol 17 gm 07/16/17 22:00 07/16/17 21:20 Miralax (For Daily Use) - PO 17 gm BID [facility] Administration Psyllium Hydrophilic Mucilloid 5.85 gm 07/17/17 07:00 Metamucil (Sugar-Free) - PO DAILY [facility] Simethicone 40 mg 07/14/17 12:43 Mylicon Liquid - PO QID PRN INDIGESTION ASSESSMENT/PLAN: 72 yr old man with abdominal pain admitted for abdominal pain. #abominal pain, POD 4 s/p open cholecystectomy on 07/14 -Day 4 of Zosyn -protonix 40 mg iv daily -miralax TID -Fluids stopped 2/2 to fluid overload -Dilaudid OPTICAL ADVISOR -simethicone/zofran/tylenol -Surgery/ID consult -Abd CTA -- gastric varicosities per icu team, GI consult. Will need EGD in a few days -incentive spirometer -Abd xray ordered to evaluate for sbo #Fluid overload, patient becoming hypoxic with crackles and jvd -IVF stopped -will order bnp and monitor for other signs of fluid overload -CXR pending #acute blood loss anemia -monitor repeat cbc -drop in hgb over last 24 hours -Patient received 2 units post op of prbc -GI consult #elevated AST , improved -continue to monitor #HTN - continue home medication tenormin 25mg #HLD - continue lipitor #FEN/GI -no IVF -monitor -Regular diet #Ppx -scd -protonix Visit type - Emergency Visit Emergency Visit: Yes ED Registration Date: 07/13/17 Care time: The patient presented to the Emergency Department on the above date and was hospitalized for further evaluation of their emergent condition. - New Patient This patient is new to me today: No - Critical Care Critical Care patient: Yes Total Critical Care Time (in minutes): 35 Critical Care Statement: The care of this patient involved high complexity decision making to prevent further life threatening deterioration of the patient 's condition and/or to evaluate & treat vital organ system(s) failure or risk of failure.
[2017-07-17] MEDS ORDERED: PSYLLIUM 5.85 GM PACKET PO ONE (07:55)
--- NOTE | 2017-07-17 08:44 | PN ---
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 Yesterday he ate shrimp, rice, beans, ice cream, 2 glasses of sangria around 5pm at a restaurant, went home and was able to sleep. stable post operatively. transient nausea last night. Not passing flatus. no complaints now. - Current Medication List Current Medications: Active Medications Acetaminophen (Ofirmev Injection -) 1,000 mg IVPB Q6H PRN PRN Reason: PAIN LEVEL 1-3 Atenolol (Tenormin -) 25 mg PO DAILY [facility] Last Admin: 07/16/17 10:35 Dose: 25 mg Atorvastatin Calcium (Lipitor -) 20 mg PO HS [facility] Last Admin: 07/16/17 21:18 Dose: 20 mg Chlorhexidine Gluconate (Hibiclens For Decolonization -) 1 applic TP HS [facility] Last Admin: 07/16/17 21:18 Dose: 1 applic Docusate Sodium (Colace -) 100 mg PO TID [facility] Last Admin: 07/17/17 06:23 Dose: 100 mg Hydromorphone HCl (Dilaudid Director Of Student Life -) 10 mg PIPER HELPER PIPER HELPER [facility] PRN Reason: Protocol Stop: 07/17/17 13:14 Last Admin: 07/16/17 17:24 Dose: 10 mg Lactated Ringer's (Lactated Ringers Solution) 1,000 mls @ 125 mls/hr IV ASDIR [facility] Last Admin: 07/16/17 21:10 Dose: Not Given Piperacillin Sod/Tazobactam (Sod 4.5 gm/ Dextrose) 100 mls @ 200 mls/hr IVPB Q8H-IV [facility] PRN Reason: Protocol Last Admin: 07/17/17 02:54 Dose: 200 mls/hr Mupirocin (Bactroban Ointment (For Decolonization) -) 1 applic NS BID [facility] Stop: 07/19/17 21:59 Last Admin: 07/16/17 22:36 Dose: Not Given Ondansetron HCl (Zofran Injection) 4 mg IVPUSH Q6H PRN PRN Reason: NAUSEA Pantoprazole Sodium (Protonix Iv) 40 mg IVPUSH DAILY [facility] Last Admin: 07/16/17 10:35 Dose: 40 mg Polyethylene Glycol (Miralax (For Daily Use) -) 17 gm PO BID [facility] Last Admin: 07/16/17 21:20 Dose: 17 gm Potassium Phos/Sodium Phos (Phos-Nak Packet -) 1 packet PO ONCE ONE Stop: 07/17/17 08:56 Psyllium Hydrophilic Mucilloid (Metamucil (Sugar-Free) -) 5.85 gm PO TID [facility] Simethicone (Mylicon Liquid -) 40 mg PO QID PRN PRN Reason: INDIGESTION - Objective Vital Signs: Vital Signs Temperature 98.7 F 07/17/17 08:00 Pulse Rate 83 07/17/17 08:00 Respiratory Rate 15 07/17/17 08:00 Blood Pressure 115/54 07/17/17 08:00 O2 Sat by Pulse Oximetry (%) 97 07/17/17 08:00 Vital Signs Period Temp Pulse Resp BP Sys/Gallagher Pulse Ox Last 24 Hr 98.7 F-99.4 F 66-87 15-21 92-124/54-78 95-97 Intake & Output 07/16/17 07/17/17 07/17/17 23:59 07:59 15:59 Intake Total 2394 2050 Output Total 1425 1140 Balance 969 910 Weight 161 lb 9.6 oz Intake: IV 1294 1500 Lactated Ringers Solution 1294 1500 1,000 ml @ 125 mls/hr IV ASDIR [facility] Rx#: [id number] IVPB 200 100 Oral 900 450 Output: Drainage 325 140 Right Abdomen 325 140 Urine 1100 1000 Void 1100 1000 Other: Voiding Method Urinal Urinal # Unmeasured Voids Void 1 Weight Measurement Method Built in [facility] Constitutional: Yes: Well Nourished, No Distress, Calm Eyes: Yes: Conjunctiva Clear, EOM Intact HENT: Yes: Atraumatic, Normocephalic Neck: Yes: Supple, Trachea Midline Cardiovascular: Yes: Regular Rate and Rhythm, S1, S2 Respiratory: Yes: Regular, CTA Bilaterally Gastrointestinal: Yes: Normal Bowel Sounds, Soft. No: Tenderness ...Rectal Exam: Yes: Deferred Genitourinary: Yes: Other (Left inguinal hernia reduicible) Extremities: No: Cool, Cyanosis Edema: No Peripheral Pulses WNL: Yes Peripheral Pulses: Left Doralis Pedis: 2+, Right Dorsalis Pedis: 2+ Neurological: Yes: Alert, Oriented Psychiatric: Yes: Alert, Oriented Labs: CBC, BMP 07/17/17 05:35 07/17/17 05:35 INR, PTT INR 1.21 (0.82-1.09) H 07/17/17 05:35 Problem List - Problems (1) Cholecystitis Assessment/Plan: 72 yo male MMP with biliary colic versus early acute cholecystitis, POD#3 s/p open cholecystectomy. H&H dropped 3 grams since surgery, CTA shows no hematoma or other signs of active bleeding, only large varices gastric an esophageal. Reducible inguinal hernia now symptomatic. Will consider elective repair. Advance diet IVF hydration Type and screen adequate analgesia DVT prophylaxsis discontinue jansen GI consult - Eval for portal HTN and upper endoscopy Transfer to floor This patient is being observed in the ICU. Time spent reviewing chart, examining patient, talking with providers and/or family and documentation is 35 minutes Code(s): K81.9 - CHOLECYSTITIS, UNSPECIFIED (2) Abdominal pain Code(s): R10.9 - UNSPECIFIED ABDOMINAL PAIN Qualifiers: Abdominal location: unspecified location Qualified Code(s): R10.9 - Unspecified abdominal pain (3) Cholelithiasis Code(s): K80.20 - CALCULUS OF GALLBLADDER W/O CHOLECYSTITIS W/O OBSTRUCTION Qualifiers: Cholelithiasis location: gallbladder Cholecystitis presence: without cholecystitis Biliary obstruction: without biliary obstruction Qualified Code(s): K80.20 - Calculus of gallbladder without cholecystitis without obstruction (4) UTI (lower urinary tract infection) Code(s): N39.0 - URINARY TRACT INFECTION, SITE NOT SPECIFIED
[2017-07-17] MEDS ORDERED: NAPH,MB-DB/K PH,MBDB POWDER PACKET PO ONE (08:55)
[2017-07-17] MEDS ORDERED: LACTULOSE 20 GM/30 ML UDC (FOR ORAL USE ONLY) PO ONE (09:06)
[2017-07-17] MEDS ORDERED: PT OWN MED DRAWER 7, Y5N ONE ×2 (09:54→21:03)
[2017-07-17] MEDS: PANTOPRAZOLE SODIUM 40 MG VIAL IVPUSH SCH (10:12)
[2017-07-17] MEDS: ATENOLOL 25 MG TABLET (FP) PO SCH (10:55)
--- NOTE | 2017-07-17 11:45 | PN ---
Teaching Attending Note Name of Resident: Oli Munoz ATTENDING PHYSICIAN STATEMENT I saw and evaluated the patient. I reviewed the resident's note and discussed the case with the resident. I agree with the resident's findings and plan as documented. SUBJECTIVE: Complains of more distention of his Abd . and L inguinal pain. reports h/o inguinal hernias on both sides . no N/V. No SOB but noted to be hypoxic per RN still passes gas . OBJECTIVE: NAD , awake and cooperative CV: RRR, JVD Lungs: bibasilar crackles Abd: more distended today , TTP in RUQ. surgical wounds with robbie. R Lisa with clean skin but saturated dressing. bloody liquid in bag. hyperactive BS. TTP in L inguinal area with palpated hernia. no skin changes . no hernia in scrotum. Nl size testicles Ext: trace edema . no erythema ASSESSMENT AND PLAN: 72 y/o man with h/o HTn, DVT/PE in 12/01 off AC now who presented with RUQ pain and was found to have a scarred gall bladder with aberrant vasculature during cholecystectomy. 1- Abd distention : with hyperactive Bowel sounds . concern for bowel obstruction at the level of L tender inguinal hernia or other -KUB with air fluid levels - D/W Dr. Alston who will evaluate patient - make NPO 2- S/p CCY . with aberrant vascular supply. CTA report still pending . - Hb stable. - monitor LISA out put . - cont pain control . hopefully we can stop TRIMMER OPERATOR THREE KNIFE soon 3- Hypoxia : in the setting of aggressive hydratin , new crackles , JVD and LE edema . this raises suspicion for pulmonary edema. - check BNP - dc IVF - check Cxray - O2 as needed 4- Esophageal varices on CT. EGD when stable 5- Transaminitis : trended down. cont to monitor 6- HTN: cont Atenolol. DVT PX : SCDs
--- NOTE | 2017-07-17 11:50 | PN ---
Teaching Attending Note Name of Resident: Monik Napier ATTENDING PHYSICIAN STATEMENT I saw and evaluated the patient. I reviewed the resident's note and discussed the case with the resident. I agree with the resident's findings and plan as documented. SUBJECTIVE: Patient seen and examined in the ICU. Noted that he reported increased abdominal distention and left groin pain. Now feels better. Less distention and pain in his left groin is much improved. No CP or SOB. Noted increased edema in both arms. Intake & Output 07/14/17 07/15/17 07/16/17 07/17/17 23:59 23:59 23:59 23:59 Intake Total 7700 3607 4594 2050 Output Total 1710 1580 3185 1430 Balance 5990 2027 1409 620 Weight 164 lb 161 lb 9.6 oz Last Vital Signs Temp Pulse Resp BP Pulse Ox 98.6 F 86 20 119/69 97 07/17/17 10:00 07/17/17 10:00 07/17/17 10:00 07/17/17 10:00 07/17/17 08:00 Active Medications Acetaminophen (Ofirmev Injection -) 1,000 mg IVPB Q6H PRN PRN Reason: PAIN LEVEL 1-3 Atenolol (Tenormin -) 25 mg PO DAILY [facility] Last Admin: 07/17/17 10:55 Dose: 25 mg Atorvastatin Calcium (Lipitor -) 20 mg PO HS [facility] Last Admin: 07/16/17 21:18 Dose: 20 mg Chlorhexidine Gluconate (Hibiclens For Decolonization -) 1 applic TP [facility] Last Admin: 07/16/17 21:18 Dose: 1 applic Docusate Sodium (Colace -) 100 mg PO TID [facility] Last Admin: 07/17/17 06:23 Dose: 100 mg Hydromorphone HCl (Dilaudid Snaker Driving Horses -) 10 mg FUR COMBER FUR COMBER [facility] PRN Reason: Protocol Stop: 07/17/17 13:14 Last Admin: 07/16/17 17:24 Dose: 10 mg Piperacillin Sod/Tazobactam (Sod 4.5 gm/ Dextrose) 100 mls @ 200 mls/hr IVPB Q8H-IV [facility] PRN Reason: Protocol Last Admin: 07/17/17 09:34 Dose: 200 mls/hr Mupirocin (Bactroban Ointment (For Decolonization) -) 1 applic NS BID [facility] Stop: 07/19/17 21:59 Last Admin: 07/16/17 22:36 Dose: Not Given Ondansetron HCl (Zofran Injection) 4 mg IVPUSH Q6H PRN PRN Reason: NAUSEA Pantoprazole Sodium (Protonix Iv) 40 mg IVPUSH DAILY [facility] Last Admin: 07/17/17 10:12 Dose: 40 mg Polyethylene Glycol (Miralax (For Daily Use) -) 17 gm PO TID [facility] Psyllium Hydrophilic Mucilloid (Metamucil (Sugar-Free) -) 5.85 gm PO TID [facility] Simethicone (Mylicon Liquid -) 40 mg PO QID PRN PRN Reason: INDIGESTION Gen: NAD at rest Heart: RRR Lung: decreased breath sounds at the bases Abd: softly distended (improved), mild appropriate tenderness, +drain with dark fluid, no left groin pain Ext: mild edema Laboratory Results - last 24 hr 07/13/17 07/16/17 07/16/17 06:16 11:36 11:36 WBC 6.9 RBC 3.12 L Hgb 10.2 L Hct 29.6 L MCV 94.9 MCH 32.8 MCHC 34.6 RDW 13.2 Plt Count 135 MPV 7.6 PT with INR INR Sodium Potassium Chloride Carbon Dioxide Anion Gap BUN Creatinine Random Glucose Calcium Phosphorus Magnesium Total Bilirubin Urine Color Urine Appearance Urine pH Ur Specific [place] Urine Protein Urine Glucose (UA) Urine Ketones Urine Blood Urine Nitrite Urine Bilirubin Urine Urobilinogen Ur Leukocyte Esterase Blood Type A POSITIVE A POSITIVE Antibody Screen Negative Negative Crossmatch IS Only See Detail 07/16/17 07/17/17 07/17/17 12:10 05:35 05:35 WBC 8.1 RBC 3.01 L Hgb 10.1 L Hct 28.7 L MCV 95.2 MCH 33.5 MCHC 35.1 RDW 13.3 Plt Count 155 MPV 8.8 D PT with INR 13.70 H INR 1.21 H Sodium Potassium Chloride Carbon Dioxide Anion Gap BUN Creatinine Random Glucose Calcium Phosphorus Magnesium Total Bilirubin Urine Color Ltyellow Urine Appearance Clear Urine pH 5.0 Ur Specific [place] > 1.060 H Urine Protein Negative Urine Glucose (UA) Negative Urine Ketones Negative Urine Blood Negative Urine Nitrite Negative Urine Bilirubin Negative Urine Urobilinogen Negative Ur Leukocyte Esterase Negative Blood Type Antibody Screen Crossmatch IS Only 07/17/17 05:35 WBC RBC Hgb Hct MCV MCH MCHC RDW Plt Count MPV PT with INR INR Sodium 140 Potassium 3.5 Chloride 101 Carbon Dioxide 31 Anion Gap 8 BUN 6 L Creatinine 0.5 L Random Glucose 102 Calcium 8.0 L Phosphorus 2.4 L D Magnesium 1.8 Total Bilirubin 1.4 H Urine Color Urine Appearance Urine pH Ur Specific [place] Urine Protein Urine Glucose (UA) Urine Ketones Urine Blood Urine Nitrite Urine Bilirubin Urine Urobilinogen Ur Leukocyte Esterase Blood Type Antibody Screen Crossmatch IS Only ASSESSMENT AND PLAN: Acute Cholecystitis Sepsis s/p Open Cholecystectomy r/o GI Bleed Acute Blood Loss Anemia HTN Hyperlipidemia h/o DVT/PE - D/C IVF - ABX coverage - monitor H/H - Normal transfusion thresholds - monitor urine output, creatinine - pain control - incentive spirometry - O2 to keep SpO2 >90% - mechanical DVT prophylaxis - Downgrade when cleared by surgery - continue ICU monitoring Dr Lopez Critical care time spent in reviewing chart, evaluating patient and formulating plan 35 min
[2017-07-17] MEDS: MUPIROCIN 2% TOPICAL OINTMENT FOR DECOLONIZATION NS SCH (12:11)
--- NOTE | 2017-07-17 12:35 | PN ---
Progress Note, Physician History of Present Illness: Complains of constipation. No BMs for the last 4 days. Distended abdomen. Abdominal x-ray shows scattered air-fluid levels and small and large bowel. Retained stool. - Current Medication List Current Medications: Active Medications Acetaminophen (Ofirmev Injection -) 1,000 mg IVPB Q6H PRN PRN Reason: PAIN LEVEL 1-3 Atenolol (Tenormin -) 25 mg PO DAILY [facility] Last Admin: 07/17/17 10:55 Dose: 25 mg Atorvastatin Calcium (Lipitor -) 20 mg PO HS [facility] Last Admin: 07/16/17 21:18 Dose: 20 mg Chlorhexidine Gluconate (Hibiclens For Decolonization -) 1 applic TP HS [facility] Last Admin: 07/16/17 21:18 Dose: 1 applic Docusate Sodium (Colace -) 100 mg PO TID [facility] Last Admin: 07/17/17 06:23 Dose: 100 mg Hydromorphone HCl (Dilaudid Street Cleaning Equipment Operator -) 10 mg HAND PROFILER HAND PROFILER [facility] PRN Reason: Protocol Stop: 07/17/17 13:14 Last Admin: 07/16/17 17:24 Dose: 10 mg Piperacillin Sod/Tazobactam (Sod 4.5 gm/ Dextrose) 100 mls @ 200 mls/hr IVPB Q8H-IV [facility] PRN Reason: Protocol Last Admin: 07/17/17 09:34 Dose: 200 mls/hr Mupirocin (Bactroban Ointment (For Decolonization) -) 1 applic NS BID [facility] Stop: 07/19/17 21:59 Last Admin: 07/17/17 12:11 Dose: 1 applic Ondansetron HCl (Zofran Injection) 4 mg IVPUSH Q6H PRN PRN Reason: NAUSEA Pantoprazole Sodium (Protonix Iv) 40 mg IVPUSH DAILY [facility] Last Admin: 07/17/17 10:12 Dose: 40 mg Polyethylene Glycol (Miralax (For Daily Use) -) 17 gm PO TID [facility] Psyllium Hydrophilic Mucilloid (Metamucil (Sugar-Free) -) 5.85 gm PO TID [facility] Simethicone (Mylicon Liquid -) 40 mg PO QID PRN PRN Reason: INDIGESTION - Objective Vital Signs: Vital Signs Temperature 98.5 F 07/17/17 12:00 Pulse Rate 77 05/03/18 12:00 Respiratory Rate 22 07/17/17 12:00 Blood Pressure 121/55 07/17/17 12:00 O2 Sat by Pulse Oximetry (%) 97 07/17/17 08:00 Constitutional: Yes: No Distress, Calm Gastrointestinal: Yes: Soft, Distention, Tenderness, Epigastrium Labs: CBC, BMP 07/17/17 05:35 07/17/17 05:35 INR, PTT INR 1.21 (0.82-1.09) H 07/17/17 05:35 Initial Vital Signs Temp Pulse Resp BP Pulse Ox 98.7 F 56 L 19 135/79 98 07/13/17 02:41 07/13/17 02:41 07/13/17 02:41 07/13/17 02:41 07/13/17 02:41 Laboratory Last Values WBC 8.1 K/mm3 (4.0-10.0) 07/17/17 05:35 RBC 3.01 M/mm3 (4.00-5.60) L 07/17/17 05:35 Hgb 10.1 GM/dL (11.7-16.9) L 07/17/17 05:35 Hct 28.7 % (35.4-49) L 07/17/17 05:35 MCV 95.2 fl (80-96) 07/17/17 05:35 MCH 33.5 pg (25.7-33.7) 07/17/17 05:35 MCHC 35.1 g/dl (32.0-35.9) 07/17/17 05:35 RDW 13.3 % (11.9-15.9) 07/17/17 05:35 Plt Count 155 K/MM3 (134-434) 07/17/17 05:35 MPV 8.8 fl (7.5-11.1) D 07/17/17 05:35 Neutrophils % 82.1 % (42.8-82.8) 07/16/17 05:40 Lymphocytes % 8.2 % (8-40) D 07/16/17 05:40 Monocytes % 9.1 % (3.8-10.2) 07/16/17 05:40 Eosinophils % 0.4 % (0-4.5) D 07/16/17 05:40 Basophils % 0.2 % (0-2.0) 07/16/17 05:40 PT with INR 13.70 SEC (9.7-13.0) H 07/17/17 05:35 INR 1.21 (0.82-1.09) H 07/17/17 05:35 PTT (Actin FS) 35.1 SECONDS (26.9-34.4) H D 07/13/17 03:00 D-Dimer 559 ng/ml (0-500) H 07/13/17 03:00 Sodium 140 mmol/L (136-145) 07/17/17 05:35 Potassium 3.5 mmol/L (3.5-5.1) 07/17/17 05:35 Chloride 101 mmol/L (98-107) 07/17/17 05:35 Carbon Dioxide 31 mmol/L (21-32) 07/17/17 05:35 Anion Gap 8 (8-16) 07/17/17 05:35 BUN 6 mg/dL (7-18) L 07/17/17 05:35 Creatinine 0.5 mg/dL (0.7-1.3) L 07/17/17 05:35 Creat Clearance w eGFR > 60 (>60) 07/16/17 05:40 POC Glucometer 143.85743 UNITS (80-120) 07/13/17 07:34 Random Glucose 102 mg/dL (74-106) 07/17/17 05:35 Calcium 8.0 mg/dL (8.5-10.1) L 07/17/17 05:35 Phosphorus 2.4 mg/dL (2.5-4.9) L D 07/17/17 05:35 Magnesium 1.8 mg/dL (1.8-2.4) 07/17/17 05:35 Total Bilirubin 1.4 mg/dL (0.2-1.0) H 07/17/17 05:35 AST 27 U/L (15-37) D 07/16/17 05:40 ALT 37 U/L (12-78) D 07/16/17 05:40 Alkaline Phosphatase 31 U/L (45-117) L 07/16/17 05:40 Troponin I 0.02 ng/ml (0.00-0.05) 07/14/17 12:15 Total Protein 4.5 g/dl (6.4-8.2) L 07/16/17 05:40 Albumin 2.2 g/dl (3.4-5.0) L 07/16/17 05:40 Total Amylase 31 U/L (25-115) 07/13/17 03:00 Lipase 48 U/L (73-393) L 07/13/17 03:00 Urine Color Ltyellow 07/16/17 12:10 Urine Appearance Clear 07/16/17 12:10 Urine pH 5.0 (5.0-8.0) 07/16/17 12:10 Ur Specific [place] > 1.060 (1.001-1.035) H 07/16/17 12:10 Urine Protein Negative (NEGATIVE) 07/16/17 12:10 Urine Glucose (UA) Negative (NEGATIVE) 07/16/17 12:10 Urine Ketones Negative (NEGATIVE) 07/16/17 12:10 Urine Blood Negative (NEGATIVE) 07/16/17 12:10 Urine Nitrite Negative (NEGATIVE) 07/16/17 12:10 Urine Bilirubin Negative (<2.0 mg/dL) 07/16/17 12:10 Urine Urobilinogen Negative mg/dL (0.2-1.0) 07/16/17 12:10 Ur Leukocyte Esterase Negative (NEGATIVE) 07/16/17 12:10 Blood Type A POSITIVE 07/16/17 11:36 Antibody Screen Negative 07/16/17 11:36 Crossmatch See Detail 07/14/17 09:30 Crossmatch IS Only See Detail 07/13/17 06:16 Problem List - Problems (1) Acute blood loss anemia Code(s): D62 - ACUTE POSTHEMORRHAGIC ANEMIA Assessment/Plan Possible postop ileus, aggravated by opiates. Recommend 1-2 soap water enemas followed by MiraLAX 3 times a day. Ambulate, if possible. Minimize narcotics. Trial of Relistor if no improvement in bowel habits in 1-2 days.
[2017-07-17] MEDS: HYDROmorphone *PCA* 10MG/50ML DISP.SYRIN PCA SCH (13:40)
[2017-07-17] MEDS ORDERED: POLYETHYLENE GLYCOL 3350 119 GM BTL PO SCH (14:00)
[2017-07-17 14:32] LABS: N-TERMINAL BNP 662.43 pg/ml (5-125)
--- NOTE | 2017-07-17 14:43 | PN ---
Physical Exam: SUBJECTIVE: Patient seen and examined in the ICU. Pt endorses pain from Left inguinal hernia. Pt reports (+) flatus, (-) BM. Pt denies chest pain, sob, headache, nausea, vomiting, fever, chills. OBJECTIVE: Vital Signs Period Temp Pulse Resp BP Sys/Gallagher Pulse Ox Last 24 Hr 98.2 F-99.4 F 67-87 15-22 96-128/54-80 95-97 GENERAL: Awake, alert, and fully oriented, in no acute distress. LUNGS: Breath sounds equal, clear to auscultation bilaterally. No wheezes, and no crackles. No accessory muscle use. HEART: Regular rate and rhythm, normal S1 and S2 without murmur, rub or gallop. ABDOMEN: Soft, +distended, +appropriate tenderness to palpation, no guarding. Surgical dressing with some blood soaking through. LISA drain with serosanguinous fluid. LOWER EXTREMITIES: Warm, well-perfused. No calf tenderness. No peripheral edema. PSYCHIATRIC: Cooperative. Good eye contact. Appropriate mood and affect. Laboratory Results - last 24 hr 07/13/17 07/17/17 07/17/17 06:16 05:35 05:35 WBC 8.1 RBC 3.01 L Hgb 10.1 L Hct 28.7 L MCV 95.2 MCH 33.5 MCHC 35.1 RDW 13.3 Plt Count 155 MPV 8.8 D PT with INR 13.70 H INR 1.21 H Sodium Potassium Chloride Carbon Dioxide Anion Gap BUN Creatinine Random Glucose Calcium Phosphorus Magnesium Total Bilirubin B-Natriuretic Peptide Blood Type A POSITIVE Antibody Screen Negative Crossmatch IS Only See Detail 07/17/17 07/17/17 05:35 05:35 WBC RBC Hgb Hct MCV MCH MCHC RDW Plt Count MPV PT with INR INR Sodium 140 Potassium 3.5 Chloride 101 Carbon Dioxide 31 Anion Gap 8 BUN 6 L Creatinine 0.5 L Random Glucose 102 Calcium 8.0 L Phosphorus 2.4 L D Magnesium 1.8 Total Bilirubin 1.4 H B-Natriuretic Peptide Cancelled Blood Type Antibody Screen Crossmatch IS Only Active Medications Generic Name Dose Route Start Last Admin Trade Name Freq PRN Reason Stop Dose Admin Acetaminophen 1,000 mg 07/14/17 16:57 Ofirmev Injection - IVPB Q6H PRN PAIN LEVEL 1-3 Atenolol 25 mg 07/15/17 10:00 07/17/17 10:55 Tenormin - PO 25 mg DAILY [facility] Administration Atorvastatin Calcium 20 mg 07/14/17 22:00 07/16/17 21:18 Lipitor - PO 20 mg HS [facility] Administration Chlorhexidine Gluconate 1 applic 07/14/17 22:00 07/16/17 21:18 Hibiclens For Decolonization - TP 1 applic HS [facility] Administration Docusate Sodium 100 mg 07/16/17 22:00 07/17/17 13:42 Colace - PO Not Given TID [facility] Piperacillin Sod/Tazobactam 100 mls @ 200 mls/hr 07/14/17 14:00 07/17/17 09: 34 Sod 4.5 gm/ Dextrose IVPB 200 mls/hr Q8H-IV [facility] Administration Protocol Mupirocin 1 applic 07/14/17 22:00 07/17/17 12:11 Bactroban Ointment (For Decolonization) - NS 07/19/17 21:59 1 applic BID [facility] Administration Ondansetron HCl 4 mg 07/14/17 12:43 Zofran Injection IVPUSH Q6H PRN NAUSEA Pantoprazole Sodium 40 mg 07/15/17 10:00 07/17/17 10:12 Protonix Iv IVPUSH 40 mg DAILY [facility] Administration Polyethylene Glycol 17 gm 07/17/17 14:00 07/17/17 13:42 Miralax (For Daily Use) - PO Not Given TID [facility] Psyllium Hydrophilic Mucilloid 5.85 gm 07/17/17 14:00 07/17/17 13:42 Metamucil (Sugar-Free) - PO Not Given TID [facility] Simethicone 40 mg 07/14/17 12:43 Mylicon Liquid - PO QID PRN INDIGESTION IMAGIN07/17/17 Ab Xray -> No free air, scattered air-fluid levels, some distended loops of both large and small bowel with retained stool in colon. ASSESSMENT/PLAN: 72M with PMH of htn, hld, DVT and PE (Right LE 11/2016, completed AC 03/2017), presented with abdominal pain, found to have acute cholecystitis, s/p cholecystectomy (laproscopic converted to open) complicated by intra-op bleeding. # sepsis 2/2 acute cholecystitis - s/p open cholecystectomy by Dr. Dominguez on 07/14 - POD #3 - post-op care per Surgery (Dr. Dominguez): f/u Abd CTA - Day 4 of IV Zosyn - Zofran prn for nausea - incentive spirometry - Dilaudid pump and Ofirmev prn for pain control # constipation - bowel regimen: Colace, Miralax, Metamucil - pt endorses taking Metamucil TID at home - GI (Dr. Martinez) recs appreciated: Possible postop ileus, aggravated by opiates. Recommend 1-2 soap water enemas followed by MiraLAX TID. Ambulate, if possible. Minimize narcotics. Trial of Relistor if no improvement in bowel habits in 1-2 days. # acute blood loss anemia - s/p 2U PRBCs intra-op - monitor CBC - monitor for overt s/s of bleeding - transfuse prn - GI (Dr. Martinez) recs appreciated: plan EGD in the future # hld - continue home med of Lipitor # htn - continue home med of Tenormin # FEN/ppx - Fluids: po - Electrolytes: hypophosphatemia repleted with 1 neutra-phos packet, continue to monitor - Nutrition: regular - DVT ppx with yahaira SCDs - GI ppx with Protonix Visit type - Emergency Visit Emergency Visit: Yes ED Registration Date: 07/13/17 Care time: The patient presented to the Emergency Department on the above date and was hospitalized for further evaluation of their emergent condition. - New Patient This patient is new to me today: No - Critical Care Critical Care patient: Yes Total Critical Care Time (in minutes): 39 Critical Care Statement: The care of this patient involved high complexity decision making to prevent further life threatening deterioration of the patient 's condition and/or to evaluate & treat vital organ system(s) failure or risk of failure.
[2017-07-17] MEDS ORDERED: ONDANSETRON 4 MG/2 ML VIAL IVPUSH PRN (18:36)
[2017-07-17] MEDS ORDERED: SIMETHICONE 40 MG/0.6 ML BOTTLE PO PRN (18:36)
[2017-07-17] MEDS ORDERED: ACETAMINOPHEN 1000 MG/100 ML VIAL (NON FORMULARY) IVPB PRN (18:36)
--- NOTE | 2017-07-17 21:15 | PN ---
Progress Note, Physician Chief Complaint: Pt. pain controlled with CARPENTER MATE. No GA complaints - Current Medication List Current Medications: Active Medications Acetaminophen (Ofirmev Injection -) 1,000 mg IVPB Q6H PRN PRN Reason: PAIN LEVEL 1-3 Atenolol (Tenormin -) 25 mg PO DAILY [facility] Atorvastatin Calcium (Lipitor -) 20 mg PO HS [facility] Docusate Sodium (Colace -) 100 mg PO TID [facility] Piperacillin Sod/Tazobactam (Sod 4.5 gm/ Dextrose) 100 mls @ 200 mls/hr IVPB Q8H-IV [facility] PRN Reason: Protocol Ondansetron HCl (Zofran Injection) 4 mg IVPUSH Q6H PRN PRN Reason: NAUSEA Pantoprazole Sodium (Protonix Iv) 40 mg IVPUSH DAILY [facility] Polyethylene Glycol (Miralax (For Daily Use) -) 17 gm PO TID [facility] Psyllium Hydrophilic Mucilloid (Metamucil (Sugar-Free) -) 5.85 gm PO TID [facility] Saliva Substitute (Mouthkote Solution -) 1 applic MM DAILY [facility] Simethicone (Mylicon Liquid -) 40 mg PO QID PRN PRN Reason: INDIGESTION - Objective Vital Signs: Vital Signs Temperature 98.0 F 07/17/17 18:00 Pulse Rate 77 07/17/17 18:00 Respiratory Rate 16 07/17/17 18:00 Blood Pressure 125/75 07/17/17 18:00 O2 Sat by Pulse Oximetry (%) 97 07/17/17 08:00 Constitutional: Yes: Well Nourished, No Distress, Calm Neurological: Yes: WNL, Alert, Oriented ...Motor Strength: WNL Labs: CBC, BMP 07/17/17 05:35 07/17/17 05:35 INR, PTT INR 1.21 (0.82-1.09) H 07/17/17 05:35 Assessment/Plan POD#1 s/p laparoscopic to open cholecystectomy complicated by intraoperative bleeding. Doing well form anesthesia standpoint. D/C from anesthesia care.
[2017-07-17] MEDS: LYTES/YERBA SANTA 240 ML BOTTLE MM SCH (21:48)
[2017-07-17] MEDS: PSYLLIUM 5.85 GM PACKET PO SCH (21:55)
[2017-07-17] MEDS: POLYETHYLENE GLYCOL 3350 119 GM BTL PO SCH (21:56)
[2017-07-17] MEDS ORDERED: ATORVASTATIN CA 20 MG TABLET (FP) PO SCH (22:00)
[2017-07-18] MEDS ORDERED: DEXTROSE 5%-WATER 100 ML IVPB ONE (02:50)
[2017-07-18] MEDS ORDERED: PIPERACILLIN/TAZOBACTAM 4.5 GM VIAL IVPB ONE ×2 (02:50→10:17)
[2017-07-18] MEDS: PIPERACILLIN/TAZOB 4.5 GM 4.5 GM in DEXTROSE 5%-WATER 100 ML IVPB SCH ×2 (03:17→11:01)
[2017-07-18 06:46] LABS: HEMOGLOBIN 10.8 GM/dL (11.7-16.9); MCH 33.1 pg (25.7-33.7); MCHC 34.9 g/dl (32.0-35.9); MEAN CELL VOLUME 94.8 fl (80-96); MEAN PLT VOLUME 7.7 fl (7.5-11.1); PLATELET COUNT 219 K/MM3 (134-434); RBC 3.27 M/mm3 (4.00-5.60); RDW 12.8 % (11.9-15.9)
[2017-07-18] MEDS: DOCUSATE SODIUM 100 MG CAPSULE (FP) PO SCH ×3 (06:46→21:47)
[2017-07-18] MEDS: PSYLLIUM 5.85 GM PACKET PO SCH (06:46)
[2017-07-18] MEDS: POLYETHYLENE GLYCOL 3350 119 GM BTL PO SCH ×2 (06:47→21:47)
[2017-07-18 07:01] LABS: CHLORIDE 102 mmol/L (98-107); POTASSIUM 3.7 mmol/L (3.5-5.1); SODIUM 139 mmol/L (136-145)
[2017-07-18 07:06] LABS: ANION GAP 9 (8-16); BILIRUBIN,TOTAL 1.7 mg/dL (0.2-1.0); BLOOD UREA NITROGEN 6 mg/dL (7-18); CALCIUM 8.6 mg/dL (8.5-10.1); CO2 28 mmol/L (21-32); CREATININE 0.5 mg/dL (0.7-1.3); GLUCOSE,RANDOM 96 mg/dL (74-106); MAGNESIUM 2.1 mg/dL (1.8-2.4); PHOSPHOROUS 2.7 mg/dL (2.5-4.9)
--- NOTE | 2017-07-18 08:55 | PN ---
Physical Exam: SUBJECTIVE: Patient seen and examined. No acute events overnight. This am, pt had multiple large BMs. He denies chest pain, SOB, abdominal pain, n/v, and dysuria. OBJECTIVE: Vital Signs Period Temp Pulse Resp BP Sys/Gallagher Pulse Ox Last 24 Hr 98.0 F-98.6 F 61-86 14-22 107-129/54-85 GENERAL: elderly male, lying in bed, in NAD HEENT: NC, AT LUNGS: CTAB, no wheezing or rales HEART: RRR, no murmurs ABDOMEN: normoactive BS, soft, NT, ND, bandage and drain in place over surgical site EXTREMITIES: no edema NEUROLOGICAL: Cranial nerves II through XII grossly intact. Normal speech, gait not observed. Laboratory Results - last 24 hr 07/13/17 07/17/17 07/17/17 06:16 05:35 05:35 WBC RBC Hgb Hct MCV MCH MCHC RDW Plt Count MPV Sodium 140 Potassium 3.5 Chloride 101 Carbon Dioxide 31 Anion Gap 8 BUN 6 L Creatinine 0.5 L Random Glucose 102 Calcium 8.0 L Phosphorus 2.4 L D Magnesium 1.8 Total Bilirubin 1.4 H B-Natriuretic Peptide 662.43 H Cancelled Blood Type A POSITIVE Antibody Screen Negative Crossmatch IS Only See Detail 07/18/17 07/18/17 05:27 05:27 WBC 5.0 D RBC 3.27 L Hgb 10.8 L Hct 31.0 L MCV 94.8 MCH 33.1 MCHC 34.9 RDW 12.8 Plt Count 219 D MPV 7.7 D Sodium 139 Potassium 3.7 Chloride 102 Carbon Dioxide 28 Anion Gap 9 BUN 6 L Creatinine 0.5 L Random Glucose 96 Calcium 8.6 Phosphorus 2.7 Magnesium 2.1 Total Bilirubin 1.7 H D B-Natriuretic Peptide Blood Type Antibody Screen Crossmatch IS Only Active Medications Generic Name Dose Route Start Last Admin Trade Name Freq PRN Reason Stop Dose Admin Acetaminophen 1,000 mg 07/17/17 18:36 Ofirmev Injection - IVPB Q6H PRN PAIN LEVEL 1-3 Atenolol 25 mg 07/18/17 10:00 Tenormin - PO DAILY [facility] Atorvastatin Calcium 20 mg 07/17/17 22:00 07/17/17 21:51 Lipitor - PO 20 mg HS [facility] Administration Docusate Sodium 100 mg 07/17/17 22:00 07/18/17 06:46 Colace - PO Not Given TID [facility] Piperacillin Sod/Tazobactam 100 mls @ 200 mls/hr 07/18/17 02:00 07/18/17 03: 17 Sod 4.5 gm/ Dextrose IVPB 200 mls/hr Q8H-IV [facility] Administration Protocol Ondansetron HCl 4 mg 07/17/17 18:36 Zofran Injection IVPUSH Q6H PRN NAUSEA Pantoprazole Sodium 40 mg 07/18/17 10:00 Protonix Iv IVPUSH DAILY [facility] Polyethylene Glycol 17 gm 07/17/17 22:00 07/18/17 06:47 Miralax (For Daily Use) - PO Not Given TID [facility] Psyllium Hydrophilic Mucilloid 5.85 gm 07/17/17 22:00 07/18/17 06:46 Metamucil (Sugar-Free) - PO Not Given TID [facility] Saliva Substitute 1 applic 07/17/17 19:00 07/17/17 21:48 Mouthkote Solution - MM 1 applic DAILY [facility] Administration Simethicone 40 mg 07/17/17 18:36 Mylicon Liquid - PO QID PRN INDIGESTION ASSESSMENT/PLAN: 72M with PMH of htn, hld, DVT and PE (Right LE 11/2016, completed AC 03/2017) who presented with abdominal pain, was found to have acute cholecystitis, is now s/ p cholecystectomy (laproscopic converted to open) complicated by intra-op bleeding. ID # sepsis 2/2 acute cholecystitis - s/p open cholecystectomy by Dr. Dominguez on 07/14 - POD #4 - post-op care per Surgery (Dr. Dominguez) - Day 5 of IV Zosyn - Zofran prn for nausea - incentive spirometry - Dilaudid discontinued. Ofirmev and oxycodone prn for pain control GI # constipation - bowel regimen: Colace, Miralax, Metamucil - GI (Dr. Martinez) recs appreciated # acute blood loss anemia - s/p 2U PRBCs intra-op - monitor CBC. Hgb of 10.8 today, stable from yesterday - monitor for overt s/s of bleeding - transfuse prn - GI (Dr. Juan) recs appreciated: plan EGD in the future CV # HTN - continue home med # HLD - continue home med of Lipitor FEN/ppx - Fluids: po - Electrolytes: wnl - Nutrition: regular - DVT ppx with yahaira SCDs - GI ppx with Protonix Dispo: - stable for transfer to floors Case discussed with attending, Dr. Lopez. -Wes Arriaza MD PGY1 Visit type - Emergency Visit Emergency Visit: Yes ED Registration Date: 07/13/17 Care time: The patient presented to the Emergency Department on the above date and was hospitalized for further evaluation of their emergent condition. - New Patient This patient is new to me today: Yes Date on this admission: 07/18/17 - Critical Care Critical Care patient: Yes Total Critical Care Time (in minutes): 35 Critical Care Statement: The care of this patient involved high complexity decision making to prevent further life threatening deterioration of the patient 's condition and/or to evaluate & treat vital organ system(s) failure or risk of failure.
[2017-07-18] MEDS ORDERED: oxyCODONE HCL 5 MG TABLET PO PRN (09:06)
[2017-07-18] MEDS ORDERED: PSYLLIUM 5.85 GM PACKET PO PRN ×2 (09:13→14:50)
[2017-07-18] MEDS ORDERED: PANTOPRAZOLE SODIUM 40 MG VIAL IVPUSH SCH (10:00)
[2017-07-18] MEDS ORDERED: POLYETHYLENE GLYCOL 3350 119 GM BTL PO SCH (10:00)
[2017-07-18] MEDS ORDERED: ATENOLOL 25 MG TABLET (FP) PO SCH (10:00)
[2017-07-18] MEDS: LYTES/YERBA SANTA 240 ML BOTTLE MM SCH (10:34)
--- NOTE | 2017-07-18 11:35 | PN ---
Teaching Attending Note Name of Resident: Wes Arriaza ATTENDING PHYSICIAN STATEMENT I saw and evaluated the patient. I reviewed the resident's note and discussed the case with the resident. I agree with the resident's findings and plan as documented. SUBJECTIVE: Patient seen and examined in the ICU. Abdominal symptoms are better. Left groin pain resolved. No CP or SOB. Less edema. Intake & Output 07/15/17 07/16/17 07/17/17 07/18/17 23:59 23:59 23:59 23:59 Intake Total 3607 4594 2500 200 Output Total 1580 3185 2645 2280 Balance 2026 1409 -145 -2080 Weight 164 lb 161 lb 9.6 oz Last Vital Signs Temp Pulse Resp BP Pulse Ox 98.5 F 68 20 123/61 97 07/18/17 08:00 07/18/17 10:00 07/18/17 10:00 07/18/17 10:00 07/18/17 09:00 Active Medications Acetaminophen (Ofirmev Injection -) 1,000 mg IVPB Q6H PRN PRN Reason: PAIN LEVEL 1-3 Atenolol (Tenormin -) 25 mg PO DAILY [facility] Last Admin: 07/18/17 11:09 Dose: 25 mg Atorvastatin Calcium (Lipitor -) 20 mg PO HS [facility] Last Admin: 07/17/17 21:51 Dose: 20 mg Docusate Sodium (Colace -) 100 mg PO TID [facility] Last Admin: 07/18/17 06:46 Dose: Not Given Piperacillin Sod/Tazobactam (Sod 4.5 gm/ Dextrose) 100 mls @ 200 mls/hr IVPB Q8H-IV [facility] PRN Reason: Protocol Last Admin: 07/18/17 11:01 Dose: 200 mls/hr Ondansetron HCl (Zofran Injection) 4 mg IVPUSH Q6H PRN PRN Reason: NAUSEA Oxycodone HCl (Roxicodone -) 5 mg PO Q6H PRN PRN Reason: PAIN LEVEL 4 - 6 Pantoprazole Sodium (Protonix Iv) 40 mg IVPUSH DAILY [facility] Last Admin: 07/18/17 10:29 Dose: 40 mg Polyethylene Glycol (Miralax (For Daily Use) -) 17 gm PO BID [facility] Last Admin: 07/18/17 10:29 Dose: Not Given Psyllium Hydrophilic Mucilloid (Metamucil (Sugar-Free) -) 5.85 gm PO TID PRN PRN Reason: CONSTIPATION Saliva Substitute (Mouthkote Solution -) 1 applic MM DAILY [facility] Last Admin: 07/18/17 10:34 Dose: 1 applic Simethicone (Mylicon Liquid -) 40 mg PO QID PRN PRN Reason: INDIGESTION Gen: NAD at rest Heart: RRR Lung: decreased breath sounds at the bases Abd: Improved distention, Non-tender, (+) drain with dark fluid, no left groin pain Ext: mild edema Intake & Output 07/15/17 07/16/17 07/17/17 07/18/17 23:59 23:59 23:59 23:59 Intake Total 3607 4594 2500 200 Output Total 1580 3185 2645 2280 Balance 2026 1409 -145 -2080 Weight 164 lb 161 lb 9.6 oz Last Vital Signs Temp Pulse Resp BP Pulse Ox 98.5 F 68 20 123/61 97 07/18/17 08:00 07/18/17 10:00 07/18/17 10:00 07/18/17 10:00 07/18/17 09:00 Active Medications Acetaminophen (Ofirmev Injection -) 1,000 mg IVPB Q6H PRN PRN Reason: PAIN LEVEL 1-3 Atenolol (Tenormin -) 25 mg PO DAILY [facility] Last Admin: 07/18/17 11:09 Dose: 25 mg Atorvastatin Calcium (Lipitor -) 20 mg PO HS [facility] Last Admin: 07/17/17 21:51 Dose: 20 mg Docusate Sodium (Colace -) 100 mg PO TID [facility] Last Admin: 07/18/17 06:46 Dose: Not Given Piperacillin Sod/Tazobactam (Sod 4.5 gm/ Dextrose) 100 mls @ 200 mls/hr IVPB Q8H-IV [facility] PRN Reason: Protocol Last Admin: 07/18/17 11:01 Dose: 200 mls/hr Ondansetron HCl (Zofran Injection) 4 mg IVPUSH Q6H PRN PRN Reason: NAUSEA Oxycodone HCl (Roxicodone -) 5 mg PO Q6H PRN PRN Reason: PAIN LEVEL 4 - 6 Pantoprazole Sodium (Protonix Iv) 40 mg IVPUSH DAILY [facility] Last Admin: 07/18/17 10:29 Dose: 40 mg Polyethylene Glycol (Miralax (For Daily Use) -) 17 gm PO BID [facility] Last Admin: 07/18/17 10:29 Dose: Not Given Psyllium Hydrophilic Mucilloid (Metamucil (Sugar-Free) -) 5.85 gm PO TID PRN PRN Reason: CONSTIPATION Saliva Substitute (Mouthkote Solution -) 1 applic MM DAILY [facility] Last Admin: 07/18/17 10:34 Dose: 1 applic Simethicone (Mylicon Liquid -) 40 mg PO QID PRN PRN Reason: INDIGESTION ASSESSMENT AND PLAN: Acute Cholecystitis Sepsis s/p Open Cholecystectomy r/o GI Bleed Acute Blood Loss Anemia HTN Hyperlipidemia h/o DVT/PE Laboratory Results - last 24 hr 07/17/17 07/17/17 07/18/17 05:35 05:35 05:27 WBC 5.0 D RBC 3.27 L Hgb 10.8 L Hct 31.0 L MCV 94.8 MCH 33.1 MCHC 34.9 RDW 12.8 Plt Count 219 D MPV 7.7 D Sodium 140 Potassium 3.5 Chloride 101 Carbon Dioxide 31 Anion Gap 8 BUN 6 L Creatinine 0.5 L Random Glucose 102 Calcium 8.0 L Phosphorus 2.4 L D Magnesium 1.8 Total Bilirubin 1.4 H B-Natriuretic Peptide 662.43 H Cancelled 07/18/17 05:27 WBC RBC Hgb Hct MCV MCH MCHC RDW Plt Count MPV Sodium 139 Potassium 3.7 Chloride 102 Carbon Dioxide 28 Anion Gap 9 BUN 6 L Creatinine 0.5 L Random Glucose 96 Calcium 8.6 Phosphorus 2.7 Magnesium 2.1 Total Bilirubin 1.7 H D B-Natriuretic Peptide - Monitor off IVF - ABX coverage - monitor H/H - Normal transfusion thresholds - monitor urine output, creatinine - pain control - incentive spirometry - O2 to keep SpO2 >90% - mechanical DVT prophylaxis - Floor Dr Lopez Critical care time spent in reviewing chart, evaluating patient and formulating plan 35 min
--- NOTE | 2017-07-18 13:13 | PN ---
Progress Note, Physician History of Present Illness: patient stable no new issues still draining a lot from the hilda tube no bm passing flatus - Current Medication List Current Medications: Active Medications Acetaminophen (Ofirmev Injection -) 1,000 mg IVPB Q6H PRN PRN Reason: PAIN LEVEL 1-3 Atenolol (Tenormin -) 25 mg PO DAILY [facility] Last Admin: 07/18/17 11:09 Dose: 25 mg Atorvastatin Calcium (Lipitor -) 20 mg PO HS [facility] Last Admin: 07/17/17 21:51 Dose: 20 mg Docusate Sodium (Colace -) 100 mg PO TID [facility] Last Admin: 07/18/17 06:46 Dose: Not Given Piperacillin Sod/Tazobactam (Sod 4.5 gm/ Dextrose) 100 mls @ 200 mls/hr IVPB Q8H-IV [facility] PRN Reason: Protocol Last Admin: 07/18/17 11:01 Dose: 200 mls/hr Ondansetron HCl (Zofran Injection) 4 mg IVPUSH Q6H PRN PRN Reason: NAUSEA Oxycodone HCl (Roxicodone -) 5 mg PO Q6H PRN PRN Reason: PAIN LEVEL 4 - 6 Pantoprazole Sodium (Protonix Iv) 40 mg IVPUSH DAILY [facility] Last Admin: 07/18/17 10:29 Dose: 40 mg Polyethylene Glycol (Miralax (For Daily Use) -) 17 gm PO BID [facility] Last Admin: 07/18/17 10:29 Dose: Not Given Psyllium Hydrophilic Mucilloid (Metamucil (Sugar-Free) -) 5.85 gm PO TID PRN PRN Reason: CONSTIPATION Saliva Substitute (Mouthkote Solution -) 1 applic MM DAILY [facility] Last Admin: 07/18/17 10:34 Dose: 1 applic Simethicone (Mylicon Liquid -) 40 mg PO QID PRN PRN Reason: INDIGESTION - Objective Vital Signs: Vital Signs Temperature 98.5 F 07/18/17 08:00 Pulse Rate 72 07/18/17 12:00 Respiratory Rate 25 H 07/18/17 12:00 Blood Pressure 134/67 07/18/17 12:00 O2 Sat by Pulse Oximetry (%) 97 07/18/17 09:00 Constitutional: Yes: No Distress, Calm Cardiovascular: Yes: Regular Rate and Rhythm Respiratory: Yes: Regular, CTA Bilaterally Gastrointestinal: Yes: Normal Bowel Sounds, Soft, Other (drain still draining a lot) Musculoskeletal: Yes: WNL Extremities: Yes: WNL Wound/Incision: Yes: Clean/Dry Neurological: Yes: Alert, Oriented Psychiatric: Yes: Alert, Oriented Labs: CBC, BMP 07/18/17 05:27 07/18/17 05:27 INR, PTT INR 1.21 (0.82-1.09) H 07/17/17 05:35 Assessment/Plan Problem List - Problems (1) Cholecystitis Code(s): K81.9 - CHOLECYSTITIS, UNSPECIFIED (2) Abdominal pain Code(s): R10.9 - UNSPECIFIED ABDOMINAL PAIN Qualifiers: Abdominal location: unspecified location Qualified Code(s): R10.9 - Unspecified abdominal pain (3) Cholelithiasis Code(s): K80.20 - CALCULUS OF GALLBLADDER W/O CHOLECYSTITIS W/O OBSTRUCTION Qualifiers: Cholelithiasis location: gallbladder Cholecystitis presence: without cholecystitis Biliary obstruction: without biliary obstruction Qualified Code(s): K80.20 - Calculus of gallbladder without cholecystitis without obstruction (4) UTI (lower urinary tract infection) Code(s): N39.0 - URINARY TRACT INFECTION, SITE NOT SPECIFIED drop in h and h noted,gi note noted plan hydration continue abx for now will d/w surgery will deescalate abx once patient more stable 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
--- NOTE | 2017-07-18 13:26 | PN ---
Progress Note, Physician History of Present Illness: stable no new issues still with lot of drainage awake and alert had bm last night - Current Medication List Current Medications: Active Medications Acetaminophen (Ofirmev Injection -) 1,000 mg IVPB Q6H PRN PRN Reason: PAIN LEVEL 1-3 Atenolol (Tenormin -) 25 mg PO DAILY [facility] Last Admin: 07/18/17 11:09 Dose: 25 mg Atorvastatin Calcium (Lipitor -) 20 mg PO HS [facility] Last Admin: 07/17/17 21:51 Dose: 20 mg Docusate Sodium (Colace -) 100 mg PO TID [facility] Last Admin: 07/18/17 06:46 Dose: Not Given Piperacillin Sod/Tazobactam (Sod 4.5 gm/ Dextrose) 100 mls @ 200 mls/hr IVPB Q8H-IV [facility] PRN Reason: Protocol Last Admin: 07/18/17 11:01 Dose: 200 mls/hr Ondansetron HCl (Zofran Injection) 4 mg IVPUSH Q6H PRN PRN Reason: NAUSEA Oxycodone HCl (Roxicodone -) 5 mg PO Q6H PRN PRN Reason: PAIN LEVEL 4 - 6 Pantoprazole Sodium (Protonix Iv) 40 mg IVPUSH DAILY [facility] Last Admin: 07/18/17 10:29 Dose: 40 mg Polyethylene Glycol (Miralax (For Daily Use) -) 17 gm PO BID [facility] Last Admin: 07/18/17 10:29 Dose: Not Given Psyllium Hydrophilic Mucilloid (Metamucil (Sugar-Free) -) 5.85 gm PO TID PRN PRN Reason: CONSTIPATION Saliva Substitute (Mouthkote Solution -) 1 applic MM DAILY [facility] Last Admin: 07/18/17 10:34 Dose: 1 applic Simethicone (Mylicon Liquid -) 40 mg PO QID PRN PRN Reason: INDIGESTION - Objective Vital Signs: Vital Signs Temperature 98.5 F 07/18/17 08:00 Pulse Rate 72 07/18/17 12:00 Respiratory Rate 25 H 07/18/17 12:00 Blood Pressure 134/67 07/18/17 12:00 O2 Sat by Pulse Oximetry (%) 97 07/18/17 09:00 Constitutional: Yes: No Distress, Calm Cardiovascular: Yes: Regular Rate and Rhythm Respiratory: Yes: Regular, CTA Bilaterally Gastrointestinal: Yes: Normal Bowel Sounds, Soft, Other (hilda drain in place) Musculoskeletal: Yes: WNL Extremities: Yes: WNL Neurological: Yes: Alert, Oriented Psychiatric: Yes: Alert, Oriented Labs: CBC, BMP 07/18/17 05:27 07/18/17 05:27 INR, PTT INR 1.21 (0.82-1.09) H 07/17/17 05:35 Assessment/Plan Problem List - Problems (1) Cholecystitis Code(s): K81.9 - CHOLECYSTITIS, UNSPECIFIED (2) Abdominal pain Code(s): R10.9 - UNSPECIFIED ABDOMINAL PAIN Qualifiers: Abdominal location: unspecified location Qualified Code(s): R10.9 - Unspecified abdominal pain (3) Cholelithiasis Code(s): K80.20 - CALCULUS OF GALLBLADDER W/O CHOLECYSTITIS W/O OBSTRUCTION Qualifiers: Cholelithiasis location: gallbladder Cholecystitis presence: without cholecystitis Biliary obstruction: without biliary obstruction Qualified Code(s): K80.20 - Calculus of gallbladder without cholecystitis without obstruction (4) UTI (lower urinary tract infection) Code(s): N39.0 - URINARY TRACT INFECTION, SITE NOT SPECIFIED plan hydration continue abx stable still with drainage will d/w surgery cc time 40 min
--- NOTE | 2017-07-18 13:45 | PN ---
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
--- NOTE | 2017-07-18 13:53 | PN ---
Physical Exam: SUBJECTIVE: Patient seen and examined Patient with 7 BMs yesterday. Abdominal pain has improved significantly. No current complaints OBJECTIVE: Vital Signs Period Temp Pulse Resp BP Sys/Gallagher Pulse Ox Last 24 Hr 98.0 F-98.5 F 61-77 14-25 107-134/54-85 97 GENERAL: Awake, alert, and fully oriented, in no acute distress. HEAD: Normal with no signs of trauma. NECK: mild JVD LUNGS: Breath sounds equal, clear bilaterally HEART: Regular rate and rhythm, normal S1 and S2 without murmur, rub or gallop. ABDOMEN: Soft, mild right sided tenderness, normoactive bs, robbie in place, + LISA drain LOWER EXTREMITIES: warm, well-perfused. No calf tenderness. No peripheral edema. PSYCHIATRIC: Cooperative. Good eye contact. Appropriate mood and affect. SKIN: Warm, dry, normal turgor, no rashes or lesions noted, normal capillary refill. Laboratory Results - last 24 hr 07/17/17 07/18/17 07/18/17 05:35 05:27 05:27 WBC 5.0 D RBC 3.27 L Hgb 10.8 L Hct 31.0 L MCV 94.8 MCH 33.1 MCHC 34.9 RDW 12.8 Plt Count 219 D MPV 7.7 D Sodium 139 Potassium 3.7 Chloride 102 Carbon Dioxide 28 Anion Gap 9 BUN 6 L Creatinine 0.5 L Random Glucose 96 Calcium 8.6 Phosphorus 2.7 Magnesium 2.1 Total Bilirubin 1.7 H D B-Natriuretic Peptide 662.43 H Active Medications Generic Name Dose Route Start Last Admin Trade Name Freq PRN Reason Stop Dose Admin Acetaminophen 1,000 mg 07/17/17 18:36 Ofirmev Injection - IVPB Q6H PRN PAIN LEVEL 1-3 Atenolol 25 mg 07/18/17 10:00 07/18/17 11:09 Tenormin - PO 25 mg DAILY KALEIGH Administration Atorvastatin Calcium 20 mg 07/17/17 22:00 07/17/17 21:51 Lipitor - PO 20 mg HS K[facility]IGH Administration Docusate Sodium 100 mg 07/17/17 22:00 07/18/17 06:46 Colace - PO Not Given TID KALEIGH Ondansetron HCl 4 mg 07/17/17 18:36 Zofran Injection IVPUSH Q6H PRN NAUSEA Oxycodone HCl 5 mg 07/18/17 09:06 Roxicodone - PO Q6H PRN PAIN LEVEL 4 - 6 Pantoprazole Sodium 40 mg 07/18/17 10:00 07/18/17 10:29 Protonix Iv IVPUSH 40 mg DAILY KALEIGH Administration Polyethylene Glycol 17 gm 07/18/17 10:00 07/18/17 10:29 Miralax (For Daily Use) - PO Not Given BID K[facility]IGH Psyllium Hydrophilic Mucilloid 5.85 gm 07/18/17 09:13 Metamucil (Sugar-Free) - PO TID PRN CONSTIPATION Saliva Substitute 1 applic 07/17/17 19:00 07/18/17 10:34 Mouthkote Solution - MM 1 applic DAILY KALEIGH Administration Simethicone 40 mg 07/17/17 18:36 Mylicon Liquid - PO QID PRN INDIGESTION ASSESSMENT/PLAN: 72 yr old man with abdominal pain admitted for abdominal pain. 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 Will need EGD in a few days -incentive spirometer #Fluid overload, patient becoming hypoxic with crackles and jvd -IVF stopped #acute blood loss anemia -Patient received 2 units post op of prbc -GI consult, for EGD #elevated AST , improved -continue to monitor #HTN - continue home medication tenormin 25mg #HLD - continue lipitor #FEN/GI -no IVF -monitor -Regular diet #Ppx -scd -protonix Visit type - Emergency Visit Emergency Visit: Yes ED Registration Date: 07/13/17 Care time: The patient presented to the Emergency Department on the above date and was hospitalized for further evaluation of their emergent condition. - New Patient This patient is new to me today: No - Critical Care Critical Care patient: Yes Total Critical Care Time (in minutes): 35 Critical Care Statement: The care of this patient involved high complexity decision making to prevent further life threatening deterioration of the patient 's condition and/or to evaluate & treat vital organ system(s) failure or risk of failure.
--- NOTE | 2017-07-18 14:03 | PN ---
Teaching Attending Note Name of Resident: Oli Munoz ATTENDING PHYSICIAN STATEMENT I saw and evaluated the patient. I reviewed the resident's note and discussed the case with the resident. I agree with the resident's findings and plan as documented. SUBJECTIVE: no fever or chills. denies abd pain. has o N/V. 7 Bms yesterday. no pain in inguinal hernia area OBJECTIVE: NAD. sat 93% on RA CV: RRR, minimal JVD Lungs: minimal R base creackles only Abd:ND, TTP in RUQ around drainage site . , NL BS , soft. surgical wounds with robbie. bloody iquids fom LISA L inguinal area with no henia felt today Ext: no edema today ASSESSMENT AND PLAN: 72 y/o man with h/o HTn, DVT/PE in 12/01 off AC now who presented with RUQ pain and was found to have a scarred gall bladder with aberrant vasculature during cholecystectomy. 1- Abd distention : from constipation . resolved after having BMs. - cont bowel regimen - resume diet 2- S/p CCY . with aberrant vascular supply. - monitor LISA out put . 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 EGD hopefully Friday 5- Transaminitis : trended down. cont to monitor 6- HTN: cont Atenolol. DVT PX : SCDs Tx to floor
[2017-07-18] MEDS ORDERED: ONDANSETRON 4 MG/2 ML VIAL IVPUSH PRN (14:50)
[2017-07-18] MEDS ORDERED: ACETAMINOPHEN 1000 MG/100 ML VIAL (NON FORMULARY) IVPB PRN (14:50)
[2017-07-18] MEDS ORDERED: SIMETHICONE 40 MG/0.6 ML BOTTLE PO PRN (14:50)
[2017-07-18] MEDS: HYDROmorphone *PCA* 10MG/50ML DISP.SYRIN PCA SCH (14:56)
[2017-07-18] MEDS: oxyCODONE HCL 5 MG TABLET PO PRN ×2 (15:20→21:45)
[2017-07-18] MEDS: ATORVASTATIN CA 20 MG TABLET (FP) PO SCH (21:45)
[2017-07-19] MEDS: DOCUSATE SODIUM 100 MG CAPSULE (FP) PO SCH ×3 (06:18→21:19)
[2017-07-19 07:47] LABS: BASO % 0.3 % (0-2.0); EOS % 1.8 % (0-4.5); HEMATOCRIT 34.2 % (35.4-49); HEMOGLOBIN 11.7 GM/dL (11.7-16.9); LYMPH % 14.8 % (8-40); MCH 32.5 pg (25.7-33.7); MCHC 34.3 g/dl (32.0-35.9); MEAN CELL VOLUME 94.8 fl (80-96); MEAN PLT VOLUME 7.5 fl (7.5-11.1); MONO % 7.7 % (3.8-10.2); NEUT % 75.4 % (42.8-82.8); PLATELET COUNT 242 K/MM3 (134-434); RBC 3.61 M/mm3 (4.00-5.60); RDW 12.9 % (11.9-15.9); WHITE BLOOD COUNT 5.8 K/mm3 (4.0-10.0)
[2017-07-19 08:06] LABS: CHLORIDE 106 mmol/L (98-107); POTASSIUM 3.8 mmol/L (3.5-5.1); SODIUM 141 mmol/L (136-145)
[2017-07-19 08:19] LABS: ALBUMIN 2.6 g/dl (3.4-5.0); ALK PHOS 52 U/L (45-117); ANION GAP 7 (8-16); BILIRUBIN,TOTAL 1.6 mg/dL (0.2-1.0); BLOOD UREA NITROGEN 8 mg/dL (7-18); CALCIUM 8.5 mg/dL (8.5-10.1); CO2 28 mmol/L (21-32); CREATININE 0.5 mg/dL (0.7-1.3); GLUCOSE,RANDOM 90 mg/dL (74-106); MAGNESIUM 2.1 mg/dL (1.8-2.4); PHOSPHOROUS 2.8 mg/dL (2.5-4.9); SGOT/AST 17 U/L (15-37); SGPT/ALT 25 U/L (12-78); TOT PROT 5.6 g/dl (6.4-8.2)
[2017-07-19] MEDS ORDERED: PT OWN MED DRAWER 7, Y5N ONE (09:31)
[2017-07-19] MEDS: ATENOLOL 25 MG TABLET (FP) PO SCH (09:36)
[2017-07-19] MEDS: POLYETHYLENE GLYCOL 3350 119 GM BTL PO SCH ×2 (09:36→21:19)
[2017-07-19] MEDS: PANTOPRAZOLE SODIUM 40 MG VIAL IVPUSH SCH (09:36)
--- NOTE | 2017-07-19 12:44 | PN ---
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 Yesterday he ate shrimp, rice, beans, ice cream, 2 glasses of sangria around 5pm at a restaurant, went home and was able to sleep. stable post operatively. transient nausea last night. peristent dark drainge from the LISA. Not passing flatus. no complaints now. - Current Medication List Current Medications: Active Medications Acetaminophen (Ofirmev Injection -) 1,000 mg IVPB Q6H PRN PRN Reason: PAIN LEVEL 1-3 Atenolol (Tenormin -) 25 mg PO DAILY [facility] Last Admin: 07/19/17 09:36 Dose: 25 mg Atorvastatin Calcium (Lipitor -) 20 mg PO HS [facility] Last Admin: 07/18/17 21:45 Dose: 20 mg Docusate Sodium (Colace -) 100 mg PO TID [facility] Last Admin: 07/19/17 06:18 Dose: Not Given Ondansetron HCl (Zofran Injection) 4 mg IVPUSH Q6H PRN PRN Reason: NAUSEA Oxycodone HCl (Roxicodone -) 5 mg PO Q6H PRN PRN Reason: PAIN LEVEL 4 - 6 Last Admin: 07/18/17 21:45 Dose: 5 mg Pantoprazole Sodium (Protonix Iv) 40 mg IVPUSH DAILY [facility] Last Admin: 07/19/17 09:36 Dose: 40 mg Polyethylene Glycol (Miralax (For Daily Use) -) 17 gm PO BID [facility] Last Admin: 07/19/17 09:36 Dose: 17 gm Psyllium Hydrophilic Mucilloid (Metamucil (Sugar-Free) -) 5.85 gm PO TID PRN PRN Reason: CONSTIPATION Saliva Substitute (Mouthkote Solution -) 1 applic MM DAILY [facility] Simethicone (Mylicon Liquid -) 40 mg PO QID PRN PRN Reason: INDIGESTION - Objective Vital Signs: Vital Signs Temperature 98.7 F 07/19/17 10:00 Pulse Rate 64 07/19/17 10:00 Respiratory Rate 18 07/19/17 10:00 Blood Pressure 124/62 07/19/17 10:00 O2 Sat by Pulse Oximetry (%) 95 07/19/17 09:00 Vital Signs Period Temp Pulse Resp BP Sys/Gallagher Pulse Ox Last 24 Hr 98.7 F-99.8 F 64-74 18-76 112-128/62-64 95-95 Intake & Output 07/18/17 07/19/17 07/19/17 23:59 07:59 15:59 Output Total 550 700 Balance -550 -700 Output: Drainage 150 100 Right Abdomen 150 100 Urine 400 600 Schwartz 400 Void 600 Other: Voiding Method Urinal Urinal Constitutional: Yes: Well Nourished, No Distress, Calm Eyes: Yes: Conjunctiva Clear, EOM Intact HENT: Yes: Atraumatic, Normocephalic Neck: Yes: Supple, Trachea Midline Cardiovascular: Yes: Regular Rate and Rhythm, S1, S2 Respiratory: Yes: Regular, CTA Bilaterally Gastrointestinal: Yes: Normal Bowel Sounds, Soft, Abdomen, Obese. No: Tenderness, Other (RUQ drain drak red sero bilious) ...Rectal Exam: Yes: Deferred Genitourinary: No: CVA Tenderness - Left, CVA Tenderness - Right Extremities: No: Cool, Cyanosis Edema: No Peripheral Pulses WNL: Yes Peripheral Pulses: Left Doralis Pedis: 2+, Right Dorsalis Pedis: 2+ Neurological: Yes: Alert, Oriented Psychiatric: Yes: Alert, Oriented Labs: CBC, BMP 07/19/17 06:00 07/19/17 06:00 INR, PTT INR 1.21 (0.82-1.09) H 07/17/17 05:35 Problem List - Problems (1) Cholecystitis Assessment/Plan: 72 yo male MMP with biliary colic versus early acute cholecystitis, POD#5 s/p open cholecystectomy. H&H dropped 3 grams since surgery, CTA shows no hematoma or other signs of active bleeding, only large varices gastric an esophageal. Reducible inguinal hernia now symptomatic. Will consider elective repair. MRCP ( 07/21/2017) to rule out bile leak. LISA is persistent output >100ml in a half shift. Advance diet IVF hydration adequate analgesia DVT prophylaxsis Possible upper endoscopy LISA teaching Plan for D/C with LISA drain Code(s): K81.9 - CHOLECYSTITIS, UNSPECIFIED (2) Abdominal pain Code(s): R10.9 - UNSPECIFIED ABDOMINAL PAIN Qualifiers: Abdominal location: unspecified location Qualified Code(s): R10.9 - Unspecified abdominal pain (3) Cholelithiasis Code(s): K80.20 - CALCULUS OF GALLBLADDER W/O CHOLECYSTITIS W/O OBSTRUCTION Qualifiers: Cholelithiasis location: gallbladder Cholecystitis presence: without cholecystitis Biliary obstruction: without biliary obstruction Qualified Code(s): K80.20 - Calculus of gallbladder without cholecystitis without obstruction (4) UTI (lower urinary tract infection) Code(s): N39.0 - URINARY TRACT INFECTION, SITE NOT SPECIFIED
--- NOTE | 2017-07-19 13:11 | PN ---
Progress Note, Physician History of Present Illness: stable no new issues still with lot of drainage awake and alert - Current Medication List Current Medications: Active Medications Acetaminophen (Ofirmev Injection -) 1,000 mg IVPB Q6H PRN PRN Reason: PAIN LEVEL 1-3 Atenolol (Tenormin -) 25 mg PO DAILY [facility] Last Admin: 07/19/17 09:36 Dose: 25 mg Atorvastatin Calcium (Lipitor -) 20 mg PO HS [facility] Last Admin: 07/18/17 21:45 Dose: 20 mg Docusate Sodium (Colace -) 100 mg PO TID [facility] Last Admin: 07/19/17 06:18 Dose: Not Given Ondansetron HCl (Zofran Injection) 4 mg IVPUSH Q6H PRN PRN Reason: NAUSEA Oxycodone HCl (Roxicodone -) 5 mg PO Q6H PRN PRN Reason: PAIN LEVEL 4 - 6 Last Admin: 07/18/17 21:45 Dose: 5 mg Pantoprazole Sodium (Protonix Iv) 40 mg IVPUSH DAILY [facility] Last Admin: 07/19/17 09:36 Dose: 40 mg Polyethylene Glycol (Miralax (For Daily Use) -) 17 gm PO BID [facility] Last Admin: 07/19/17 09:36 Dose: 17 gm Psyllium Hydrophilic Mucilloid (Metamucil (Sugar-Free) -) 5.85 gm PO TID PRN PRN Reason: CONSTIPATION Saliva Substitute (Mouthkote Solution -) 1 applic MM DAILY [facility] Simethicone (Mylicon Liquid -) 40 mg PO QID PRN PRN Reason: INDIGESTION - Objective Vital Signs: Vital Signs Temperature 98.7 F 07/19/17 10:00 Pulse Rate 64 07/19/17 10:00 Respiratory Rate 18 07/19/17 10:00 Blood Pressure 124/62 07/19/17 10:00 O2 Sat by Pulse Oximetry (%) 95 07/19/17 09:00 Constitutional: Yes: No Distress, Calm Eyes: Yes: Conjunctiva Clear Neck: Yes: Supple, Trachea Midline Cardiovascular: Yes: Regular Rate and Rhythm Respiratory: Yes: Regular, CTA Bilaterally Gastrointestinal: Yes: Normal Bowel Sounds, Soft, Other (hilda drain in place) Musculoskeletal: Yes: WNL Extremities: Yes: WNL Neurological: Yes: Alert, Oriented Psychiatric: Yes: Alert, Oriented Labs: CBC, BMP 07/19/17 06:00 07/19/17 06:00 INR, PTT INR 1.21 (0.82-1.09) H 07/17/17 05:35 Assessment/Plan Problem List - Problems (1) Cholecystitis Code(s): K81.9 - CHOLECYSTITIS, UNSPECIFIED (2) Abdominal pain Code(s): R10.9 - UNSPECIFIED ABDOMINAL PAIN Qualifiers: Abdominal location: unspecified location Qualified Code(s): R10.9 - Unspecified abdominal pain (3) Cholelithiasis Code(s): K80.20 - CALCULUS OF GALLBLADDER W/O CHOLECYSTITIS W/O OBSTRUCTION Qualifiers: Cholelithiasis location: gallbladder Cholecystitis presence: without cholecystitis Biliary obstruction: without biliary obstruction Qualified Code(s): K80.20 - Calculus of gallbladder without cholecystitis without obstruction (4) UTI (lower urinary tract infection) Code(s): N39.0 - URINARY TRACT INFECTION, SITE NOT SPECIFIED plan hydration continue abx stable still with drainage d/w surgery -plan to get imaging studies
--- NOTE | 2017-07-19 13:50 | PN ---
Physical Exam: SUBJECTIVE: Patient seen and examined at bed side this morning. Says he feels much better. Denies chest pain, sob, cough, palpitation, nausea or vomiting. No acute overnight events. OBJECTIVE: Vital Signs Period Temp Pulse Resp BP Sys/Gallagher Pulse Ox Last 24 Hr 98.7 F-99.8 F 64-74 18-76 112-128/62-64 95-95 GENERAL: Elderly male, lying comfortably in bed, Awake, alert, and fully oriented, in no acute distress. HEAD: Normal with no signs of trauma. NECK: Supple. LUNGS: Breath sounds equal, clear bilaterally HEART: Regular rate and rhythm, normal S1 and S2 without murmur, rub or gallop. ABDOMEN: Soft, mild right sided tenderness, normoactive bs, robbie in place-no signs of infection, +LISA drain draining LOWER EXTREMITIES: warm, well-perfused. No calf tenderness. No peripheral edema. PSYCHIATRIC: Cooperative. Good eye contact. Appropriate mood and affect. SKIN: Warm, dry, normal turgor, no rashes or lesions noted, normal capillary refill. Laboratory Results - last 24 hr 07/19/17 07/19/17 06:00 06:00 WBC 5.8 RBC 3.61 L Hgb 11.7 Hct 34.2 L MCV 94.8 MCH 32.5 MCHC 34.3 RDW 12.9 Plt Count 242 MPV 7.5 Neutrophils % 75.4 Lymphocytes % 14.8 D Monocytes % 7.7 Eosinophils % 1.8 D Basophils % 0.3 Sodium 141 Potassium 3.8 Chloride 106 Carbon Dioxide 28 Anion Gap 7 L BUN 8 D Creatinine 0.5 L Creat Clearance w eGFR > 60 Random Glucose 90 Calcium 8.5 Phosphorus 2.8 Magnesium 2.1 Total Bilirubin 1.6 H AST 17 D ALT 25 D Alkaline Phosphatase 52 D Total Protein 5.6 L D Albumin 2.6 L Active Medications Generic Name Dose Route Start Last Admin Trade Name Freq PRN Reason Stop Dose Admin Acetaminophen 1,000 mg 07/18/17 14:50 Ofirmev Injection - IVPB Q6H PRN PAIN LEVEL 1-3 Atenolol 25 mg 07/19/17 10:00 07/19/17 09:36 Tenormin - PO 25 mg DAILY KALEIGH Administration Atorvastatin Calcium 20 mg 07/18/17 22:00 05/04/18 21:45 Lipitor - PO 20 mg HS KALEIGH Administration Docusate Sodium 100 mg 07/18/17 22:00 07/19/17 06:18 Colace - PO Not Given TID KALEIGH Ondansetron HCl 4 mg 07/18/17 14:50 Zofran Injection IVPUSH Q6H PRN NAUSEA Oxycodone HCl 5 mg 07/18/17 14:50 07/18/17 21:45 Roxicodone - PO 5 mg Q6H PRN Administration PAIN LEVEL 4 - 6 Pantoprazole Sodium 40 mg 07/19/17 10:00 07/19/17 09:36 Protonix Iv IVPUSH 40 mg DAILY KALEIGH Administration Polyethylene Glycol 17 gm 07/18/17 22:00 07/19/17 09:36 Miralax (For Daily Use) - PO 17 gm BID KALEIGH Administration Psyllium Hydrophilic Mucilloid 5.85 gm 07/18/17 14:50 Metamucil (Sugar-Free) - PO TID PRN CONSTIPATION Saliva Substitute 1 applic 07/19/17 10:00 Mouthkote Solution - MM DAILY KALEIGH Simethicone 40 mg 07/18/17 14:50 Mylicon Liquid - PO QID PRN INDIGESTION ASSESSMENT/PLAN: Patient is a 72 year old man with abdominal pain admitted for evaluation of abdominal pain. # Abominal pain due to cholecystitis s/p Cholecsytectomy- POD 5 Pt feels much better LISA drain- 430 mls yesterday; today 150 mls so far No antibiotics given at this time As per Dr. Dominguez, MRCP scheduled on 07/21/17 to r/o bile leak Pain controlled Continue Miralax/simethicone/zofran/tylenol IV Protonix 40 mg Daily Incentive spirometer # Acute blood loss anemia- post surgery Received 2 PRBC's EGD likely on Friday Repeat H/H # Reducible hernia-symptomatic Elective hernia repair once stable # Hypertension- controlled Continue home medication Atenolol 25mg PO Daily # Hyperlipidemia Continue Lipitor # FEN Nto on IV fluids Electrolytes to be repeated in AM Regular diet # Prophylaxis For DVT: On SCD's, Heparin not given due to his anemia. but now its improving so can be started in AM if H/H is stable For GI: On Protonix # Code Status: Full Code # Dispo: Duration of stay unknown. Admitted in Med-Surg/Inpatient. Illness, Investigation and Plan of care explained to the patient. He verbalized understanding. Case discussed with Dr. Hernandez. Visit type - Emergency Visit Emergency Visit: Yes ED Registration Date: 07/13/17 Care time: The patient presented to the Emergency Department on the above date and was hospitalized for further evaluation of their emergent condition. - New Patient This patient is new to me today: Yes Date on this admission: 07/19/17 - Critical Care Critical Care patient: No - Discharge Referral Referred to [facility] Med [facility].C[facility] No
[2017-07-19] MEDS: oxyCODONE HCL 5 MG TABLET PO PRN (14:09)
--- NOTE | 2017-07-19 16:28 | PN ---
Teaching Attending Note Name of Resident: Katie Lopez ATTENDING PHYSICIAN STATEMENT I saw and evaluated the patient. I reviewed the resident's note and discussed the case with the resident. I agree with the resident's findings and plan as documented. SUBJECTIVE: No fever or chills. has no abd pain. no BM earlier today. no SOB or cough OBJECTIVE: NAD. CV: RRR, No JVD Lungs: CTAB Abd:ND, TTP in RUQ around drainage site . , NL BS , soft. surgical wounds with robbie. bloody liquids from LISA L inguinal area with no hernia Ext: no edema today ASSESSMENT AND PLAN: 72 y/o man with h/o HTn, DVT/PE in 12/01 off AC now who presented with RUQ pain and was found to have a scarred gall bladder with aberrant vasculature during cholecystectomy. 1- Abd distention: from constipation. resolved after having BMs. - cont bowel regimen 2- S/p CCY . with aberrant vascular supply. - monitor LISA out put ( slightly improved ) . - cont pain control . dc morphine - off Abx - MRCP to evaluate for bile leak 3- Hypoxia: due to pulmonary edema form aggressive hydration, also form abd distention . 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 EGD hopefully Friday 5- Transaminitis : trended down. cont to monitor 6- HTN: cont Atenolol. DVT PX : SCDs
[2017-07-19] MEDS: LYTES/YERBA SANTA 240 ML BOTTLE MM SCH (17:30)
[2017-07-19] MEDS: ATORVASTATIN CA 20 MG TABLET (FP) PO SCH (21:19)
[2017-07-20] MEDS: oxyCODONE HCL 5 MG TABLET PO PRN ×3 (03:28→21:58)
[2017-07-20] MEDS: DOCUSATE SODIUM 100 MG CAPSULE (FP) PO SCH ×3 (06:28→21:58)
[2017-07-20 07:18] LABS: HEMATOCRIT 32.6 % (35.4-49); HEMOGLOBIN 11.2 GM/dL (11.7-16.9); MCH 32.3 pg (25.7-33.7); MCHC 34.2 g/dl (32.0-35.9); MEAN CELL VOLUME 94.6 fl (80-96); MEAN PLT VOLUME 7.2 fl (7.5-11.1); PLATELET COUNT 226 K/MM3 (134-434); RBC 3.45 M/mm3 (4.00-5.60); RDW 12.8 % (11.9-15.9); WHITE BLOOD COUNT 6.3 K/mm3 (4.0-10.0)
[2017-07-20 07:41] LABS: CHLORIDE 107 mmol/L (98-107); POTASSIUM 4.3 mmol/L (3.5-5.1); SODIUM 140 mmol/L (136-145)
[2017-07-20 07:47] LABS: ALBUMIN 2.5 g/dl (3.4-5.0); ALK PHOS 48 U/L (45-117); ANION GAP 6 (8-16); BILIRUBIN,TOTAL 0.9 mg/dL (0.2-1.0); BLOOD UREA NITROGEN 8 mg/dL (7-18); CO2 27 mmol/L (21-32); CREATININE 0.5 mg/dL (0.7-1.3); GLUCOSE,RANDOM 88 mg/dL (74-106); SGOT/AST 15 U/L (15-37); SGPT/ALT 21 U/L (12-78); TOT PROT 5.4 g/dl (6.4-8.2)
[2017-07-20] MEDS ORDERED: PT OWN MED DRAWER 7, Y5N ONE (09:19)
[2017-07-20] MEDS: ATENOLOL 25 MG TABLET (FP) PO SCH (09:24)
[2017-07-20] MEDS: PANTOPRAZOLE SODIUM 40 MG VIAL IVPUSH SCH (09:24)
[2017-07-20] MEDS: LYTES/YERBA SANTA 240 ML BOTTLE MM SCH (09:24)
[2017-07-20] MEDS: POLYETHYLENE GLYCOL 3350 119 GM BTL PO SCH ×2 (09:24→21:59)
--- NOTE | 2017-07-20 09:31 | PN ---
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 Yesterday he ate shrimp, rice, beans, ice cream, 2 glasses of sangria around 5pm at a restaurant, went home and was able to sleep. stable post operatively. transient nausea last night. peristent dark drainge from the LISA. Not passing flatus. no complaints now. - Current Medication List Current Medications: Active Medications Acetaminophen (Ofirmev Injection -) 1,000 mg IVPB Q6H PRN PRN Reason: PAIN LEVEL 1-3 Atenolol (Tenormin -) 25 mg PO DAILY [facility] Last Admin: 07/20/17 09:24 Dose: 25 mg Atorvastatin Calcium (Lipitor -) 20 mg PO HS [facility] Last Admin: 07/19/17 21:19 Dose: 20 mg Docusate Sodium (Colace -) 100 mg PO TID [facility] Last Admin: 07/20/17 06:28 Dose: 100 mg Ondansetron HCl (Zofran Injection) 4 mg IVPUSH Q6H PRN PRN Reason: NAUSEA Oxycodone HCl (Roxicodone -) 5 mg PO Q6H PRN PRN Reason: PAIN LEVEL 4 - 6 Last Admin: 07/20/17 03:28 Dose: 5 mg Pantoprazole Sodium (Protonix Iv) 40 mg IVPUSH DAILY [facility] Last Admin: 07/20/17 09:24 Dose: 40 mg Polyethylene Glycol (Miralax (For Daily Use) -) 17 gm PO BID [facility] Last Admin: 07/20/17 09:24 Dose: 17 gm Psyllium Hydrophilic Mucilloid (Metamucil (Sugar-Free) -) 5.85 gm PO TID PRN PRN Reason: CONSTIPATION Saliva Substitute (Mouthkote Solution -) 1 applic MM DAILY [facility] Last Admin: 07/20/17 09:24 Dose: Not Given Simethicone (Mylicon Liquid -) 40 mg PO QID PRN PRN Reason: INDIGESTION - Objective Vital Signs: Vital Signs Temperature 98.9 F 07/20/17 06:00 Pulse Rate 71 07/20/17 06:00 Respiratory Rate 18 07/20/17 06:00 Blood Pressure 128/66 07/20/17 06:00 O2 Sat by Pulse Oximetry (%) 95 07/19/17 21:00 Constitutional: Yes: Well Nourished, No Distress, Calm Eyes: Yes: Conjunctiva Clear, EOM Intact HENT: Yes: Atraumatic, Normocephalic Neck: Yes: Supple, Trachea Midline Cardiovascular: Yes: Regular Rate and Rhythm, S1, S2 Respiratory: Yes: Regular, CTA Bilaterally Gastrointestinal: Yes: Normal Bowel Sounds, Soft, Tenderness (incsional) ...Rectal Exam: Yes: Deferred Genitourinary: No: CVA Tenderness - Left, CVA Tenderness - Right Musculoskeletal: No: Muscle Pain, Muscle Weakness Extremities: No: Cool, Cyanosis Edema: No Peripheral Pulses WNL: Yes Peripheral Pulses: Left Doralis Pedis: 1+, Right Dorsalis Pedis: 1+ Integumentary: No: Jaundice, Rash Wound/Incision: Yes: Clean/Dry, Well Approximated, [place] Intact, Draining (LISA RUQ) Neurological: Yes: Alert, Oriented Psychiatric: Yes: Alert, Oriented Labs: CBC, BMP 07/20/17 06:00 07/20/17 06:00 INR, PTT INR 1.21 (0.82-1.09) H 07/17/17 05:35 Problem List - Problems (1) Cholecystitis Assessment/Plan: 72 yo male MMP with biliary colic versus early acute cholecystitis, POD#5 s/p open cholecystectomy. H&H dropped 3 grams since surgery, CTA shows no hematoma or other signs of active bleeding, only large varices gastric an esophageal. Reducible inguinal hernia now symptomatic. Will consider elective repair. Consider MRCP after removal of robbie if continued bilious output to rule out bile leak. LISA is persistent output >100ml in a half shift. Advance diet IVF hydration adequate analgesia DVT prophylaxsis Possible upper endoscopy teaching Plan for D/C with LISA drain Code(s): K81.9 - CHOLECYSTITIS, UNSPECIFIED (2) Abdominal pain Code(s): R10.9 - UNSPECIFIED ABDOMINAL PAIN Qualifiers: Abdominal location: unspecified location Qualified Code(s): R10.9 - Unspecified abdominal pain (3) Cholelithiasis Code(s): K80.20 - CALCULUS OF GALLBLADDER W/O CHOLECYSTITIS W/O OBSTRUCTION Qualifiers: Cholelithiasis location: gallbladder Cholecystitis presence: without cholecystitis Biliary obstruction: without biliary obstruction Qualified Code(s): K80.20 - Calculus of gallbladder without cholecystitis without obstruction (4) UTI (lower urinary tract infection) Code(s): N39.0 - URINARY TRACT INFECTION, SITE NOT SPECIFIED
--- NOTE | 2017-07-20 16:37 | PN ---
Progress Note (short form) - Note Progress Note: Subjective: No fever or chills. no abd pain. minimal discomfort at LISA drain site . Objective: Vital Signs: Last Vital Signs Temp Pulse Resp BP Pulse Ox 98.2 F 65 20 116/63 95 07/20/17 15:14 07/20/17 15:14 07/20/17 15:14 07/20/17 15:14 07/20/17 09:00 Laboratory Results - last 24 hr 07/20/17 07/20/17 06:00 06:00 WBC 6.3 RBC 3.45 L Hgb 11.2 L Hct 32.6 L MCV 94.6 MCH 32.3 MCHC 34.2 RDW 12.8 Plt Count 226 MPV 7.2 L Sodium 140 Potassium 4.3 Chloride 107 Carbon Dioxide 27 Anion Gap 6 L BUN 8 Creatinine 0.5 L Creat Clearance w eGFR > 60 Random Glucose 88 Calcium 8.0 L Total Bilirubin 0.9 D AST 15 ALT 21 Alkaline Phosphatase 48 Total Protein 5.4 L Albumin 2.5 L Physical Exam: NAD. CV: RRR, No JVD Lungs: CTAB Abd:ND, TTP in RUQ around drainage site. NL BS , soft. surgical wounds with robbie. bloody liquids from LISA L inguinal area with no hernia Ext: no edema today ASSESSMENT AND PLAN: 72 y/o man with h/o HTn, DVT/PE in 12/01 off AC now who presented with RUQ pain and was found to have a scarred gall bladder with aberrant vasculature during cholecystectomy. 1- Abd distention: from constipation. resolved after having BMs. - cont bowel regimen 2- S/p CCY . with aberrant vascular supply. - monitor LISA out put - cont pain control . - off Abx - MRCP can't be done due to surgical robbie. will perform in 2 weeks after staple removal 3- Esophageal varices on CT. EGD hopefully tomorrow . keep NPO 5- Transaminitis : trended down. cont to monitor 6- HTN: cont Atenolol. DVT PX : SCDs possible dc tomorrow after EGD Visit type - Emergency Visit Emergency Visit: Yes ED Registration Date: 07/13/17 Care time: The patient presented to the Emergency Department on the above date and was hospitalized for further evaluation of their emergent condition. - New Patient This patient is new to me today: No - Critical Care Critical Care patient: No
[2017-07-20] MEDS: ATORVASTATIN CA 20 MG TABLET (FP) PO SCH (21:58)
[2017-07-21] MEDS: DOCUSATE SODIUM 100 MG CAPSULE (FP) PO SCH ×2 (05:45→13:48)
[2017-07-21 09:30] LABS: HEMATOCRIT 32.3 % (35.4-49); HEMOGLOBIN 11.1 GM/dL (11.7-16.9); MCH 32.5 pg (25.7-33.7); MCHC 34.3 g/dl (32.0-35.9); MEAN CELL VOLUME 94.7 fl (80-96); PLATELET COUNT 236 K/MM3 (134-434); RBC 3.41 M/mm3 (4.00-5.60); WHITE BLOOD COUNT 5.7 K/mm3 (4.0-10.0)
[2017-07-21 09:54] LABS: ANION GAP 4 (8-16); BLOOD UREA NITROGEN 7 mg/dL (7-18); CALCIUM 8.5 mg/dL (8.5-10.1); CHLORIDE 106 mmol/L (98-107); CO2 30 mmol/L (21-32); CREATININE 0.6 mg/dL (0.7-1.3); GLUCOSE,RANDOM 102 mg/dL (74-106); INR 1.23 (0.82-1.09); POTASSIUM 4.5 mmol/L (3.5-5.1); PROTHROMBIN TIME (PATIENT) 13.9 SEC (9.7-13.0); SODIUM 140 mmol/L (136-145)
[2017-07-21] MEDS: POLYETHYLENE GLYCOL 3350 119 GM BTL PO SCH (10:04)
[2017-07-21] MEDS ORDERED: PT OWN MED DRAWER 7, Y5N ONE ×2 (10:07→11:19)
[2017-07-21] MEDS: PANTOPRAZOLE SODIUM 40 MG VIAL IVPUSH SCH (10:20)
[2017-07-21] MEDS: LYTES/YERBA SANTA 240 ML BOTTLE MM SCH (10:20)
[2017-07-21] MEDS: ATENOLOL 25 MG TABLET (FP) PO SCH (10:20)
--- NOTE | 2017-07-21 12:21 | PN ---
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 Yesterday he ate shrimp, rice, beans, ice cream, 2 glasses of sangria around 5pm at a restaurant, went home and was able to sleep. stable post operatively.Peristent dark drainge from the LISA. Now passing flatus and BM regularly. no complaints. - Current Medication List Current Medications: Active Medications Acetaminophen (Ofirmev Injection -) 1,000 mg IVPB Q6H PRN PRN Reason: PAIN LEVEL 1-3 Atenolol (Tenormin -) 25 mg PO DAILY [facility] Last Admin: 07/21/17 10:20 Dose: 25 mg Atorvastatin Calcium (Lipitor -) 20 mg PO HS [facility] Last Admin: 07/20/17 21:58 Dose: 20 mg Docusate Sodium (Colace -) 100 mg PO TID [facility] Last Admin: 07/21/17 05:45 Dose: Not Given Ondansetron HCl (Zofran Injection) 4 mg IVPUSH Q6H PRN PRN Reason: NAUSEA Oxycodone HCl (Roxicodone -) 5 mg PO Q6H PRN PRN Reason: PAIN LEVEL 4 - 6 Last Admin: 07/20/17 21:58 Dose: 5 mg Pantoprazole Sodium (Protonix Iv) 40 mg IVPUSH DAILY [facility] Last Admin: 07/21/17 10:20 Dose: 40 mg Polyethylene Glycol (Miralax (For Daily Use) -) 17 gm PO BID [facility] Last Admin: 07/21/17 10:04 Dose: Not Given Psyllium Hydrophilic Mucilloid (Metamucil (Sugar-Free) -) 5.85 gm PO TID PRN PRN Reason: CONSTIPATION Last Admin: 07/20/17 10:41 Dose: 5.85 gm Saliva Substitute (Mouthkote Solution -) 1 applic MM DAILY [facility] Last Admin: 07/21/17 10:20 Dose: Not Given Simethicone (Mylicon Liquid -) 40 mg PO QID PRN PRN Reason: INDIGESTION - Objective Vital Signs: Vital Signs Temperature 98.4 F 07/21/17 10:00 Pulse Rate 70 07/21/17 10:00 Respiratory Rate 20 07/21/17 10:00 Blood Pressure 107/50 07/21/17 10:00 O2 Sat by Pulse Oximetry (%) 95 07/20/17 21:00 Vital Signs Period Temp Pulse Resp BP Sys/Gallagher Pulse Ox Last 24 Hr 98.2 F-99.5 F 65-70 20-20 104-116/50-69 95 Intake & Output 07/20/17 07/21/17 07/21/17 23:59 07:59 15:59 Intake Total 120 Output Total 725 340 Balance -605 -340 Weight 142 lb 4 oz Intake: CBI Intake 120 Output: Drainage 75 140 Right Abdomen 75 140 Urine 650 200 Void 650 200 Other: Voiding Method Toilet Bowel Movement Yes # Bowel Movements 1 Weight Measurement Method Built in [facility] Constitutional: Yes: Well Nourished, No Distress, Calm Eyes: Yes: Conjunctiva Clear, Ptosis HENT: Yes: Atraumatic, Normocephalic Neck: Yes: Supple, Trachea Midline Cardiovascular: Yes: Regular Rate and Rhythm, S1, S2 Respiratory: Yes: Regular, CTA Bilaterally Gastrointestinal: Yes: Normal Bowel Sounds, Soft, Other (right subcostal and RUQ LISA). No: Tenderness, Tenderness, Epigastrium ...Rectal Exam: Yes: Deferred Genitourinary: No: CVA Tenderness - Left, CVA Tenderness - Right Extremities: No: Cool, Internal Rotation Edema: No Peripheral Pulses WNL: Yes Peripheral Pulses: Left Doralis Pedis: 2+, Right Dorsalis Pedis: 2+ Wound/Incision: Yes: Clean/Dry, Well Approximated, Robbie Intact Neurological: Yes: Alert, Oriented Psychiatric: Yes: Alert, Oriented Labs: CBC, BMP 07/21/17 09:13 07/21/17 09:13 INR, PTT INR 1.23 (0.82-1.09) H 07/21/17 09:13 Problem List - Problems (1) Cholecystitis Assessment/Plan: 72 yo male MMP with biliary colic versus early acute cholecystitis, POD#6 s/p open cholecystectomy. H&H has been stable, CTA shows no hematoma or other signs of active bleeding, only large varices gastric an esophageal. Reducible inguinal hernia now symptomatic. Will consider elective repair. Consider MRCP after removal of robbie if continued bilious output to rule out bile leak. LISA is persistent output >100ml in a half shift. Advance diet IVF hydration adequate analgesia DVT prophylaxsis Possible upper endoscopy LISA teaching Plan for D/C with LISA drain Code(s): K81.9 - CHOLECYSTITIS, UNSPECIFIED (2) Abdominal pain Code(s): R10.9 - UNSPECIFIED ABDOMINAL PAIN Qualifiers: Abdominal location: unspecified location Qualified Code(s): R10.9 - Unspecified abdominal pain (3) Cholelithiasis Code(s): K80.20 - CALCULUS OF GALLBLADDER W/O CHOLECYSTITIS W/O OBSTRUCTION Qualifiers: Cholelithiasis location: gallbladder Cholecystitis presence: without cholecystitis Biliary obstruction: without biliary obstruction Qualified Code(s): K80.20 - Calculus of gallbladder without cholecystitis without obstruction (4) UTI (lower urinary tract infection) Code(s): N39.0 - URINARY TRACT INFECTION, SITE NOT SPECIFIED
--- NOTE | 2017-07-21 14:07 | PN ---
Progress Note, Physician History of Present Illness: stable no new issues patient going for imaging studies - Current Medication List Current Medications: Active Medications Acetaminophen (Ofirmev Injection -) 1,000 mg IVPB Q6H PRN PRN Reason: PAIN LEVEL 1-3 Atenolol (Tenormin -) 25 mg PO DAILY [facility] Last Admin: 07/21/17 10:20 Dose: 25 mg Atorvastatin Calcium (Lipitor -) 20 mg PO HS [facility] Last Admin: 07/20/17 21:58 Dose: 20 mg Docusate Sodium (Colace -) 100 mg PO TID [facility] Last Admin: 07/21/17 13:48 Dose: Not Given Ondansetron HCl (Zofran Injection) 4 mg IVPUSH Q6H PRN PRN Reason: NAUSEA Oxycodone HCl (Roxicodone -) 5 mg PO Q6H PRN PRN Reason: PAIN LEVEL 4 - 6 Last Admin: 07/20/17 21:58 Dose: 5 mg Pantoprazole Sodium (Protonix Iv) 40 mg IVPUSH DAILY [facility] Last Admin: 07/21/17 10:20 Dose: 40 mg Polyethylene Glycol (Miralax (For Daily Use) -) 17 gm PO BID [facility] Last Admin: 07/21/17 10:04 Dose: Not Given Psyllium Hydrophilic Mucilloid (Metamucil (Sugar-Free) -) 5.85 gm PO TID PRN PRN Reason: CONSTIPATION Last Admin: 07/20/17 10:41 Dose: 5.85 gm Saliva Substitute (Mouthkote Solution -) 1 applic MM DAILY [facility] Last Admin: 07/21/17 10:20 Dose: Not Given Simethicone (Mylicon Liquid -) 40 mg PO QID PRN PRN Reason: INDIGESTION - Objective Vital Signs: Vital Signs Temperature 98.4 F 07/21/17 10:00 Pulse Rate 70 07/21/17 10:00 Respiratory Rate 20 07/21/17 10:00 Blood Pressure 107/50 07/21/17 10:00 O2 Sat by Pulse Oximetry (%) 94 L 07/21/17 09:00 Constitutional: Yes: No Distress, Calm Cardiovascular: Yes: Regular Rate and Rhythm Respiratory: Yes: Regular, CTA Bilaterally Gastrointestinal: Yes: Normal Bowel Sounds, Soft, Other (drain in place) Musculoskeletal: Yes: WNL Extremities: Yes: WNL Neurological: Yes: Alert, Oriented Psychiatric: Yes: Alert, Oriented Labs: CBC, BMP 07/21/17 09:13 07/21/17 09:13 INR, PTT INR 1.23 (0.82-1.09) H 07/21/17 09:13 Assessment/Plan Problem List - Problems (1) Cholecystitis Code(s): K81.9 - CHOLECYSTITIS, UNSPECIFIED (2) Abdominal pain Code(s): R10.9 - UNSPECIFIED ABDOMINAL PAIN Qualifiers: Abdominal location: unspecified location Qualified Code(s): R10.9 - Unspecified abdominal pain (3) Cholelithiasis Code(s): K80.20 - CALCULUS OF GALLBLADDER W/O CHOLECYSTITIS W/O OBSTRUCTION Qualifiers: Cholelithiasis location: gallbladder Cholecystitis presence: without cholecystitis Biliary obstruction: without biliary obstruction Qualified Code(s): K80.20 - Calculus of gallbladder without cholecystitis without obstruction (4) UTI (lower urinary tract infection) Code(s): N39.0 - URINARY TRACT INFECTION, SITE NOT SPECIFIED plan continue to monitor off of abx monitor drainage imaging studies result rest as per the team
--- NOTE | 2017-07-21 14:38 | PROC ---
Endoscopy Procedure Endoscopy procedure completed. Please see scanned procedure report. No stigmata of liver disease found on endoscopy. Normal proximal small bowel, stomach, esophagus. Resume previous diet.
[2017-07-21 15:31] VITALS: TEMP 98.7
[2017-07-21 15:51] VITALS: BP 113/62; PULSE 62
--- NOTE | 2017-07-21 15:52 | DS ---
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 Currently, pt reports feeling better without any abdominal pain. His previous abdominal distention from constipation has now resolved. He reports awaiting the time to eat after his EGD today OBJECTIVE: Vital Signs Period Temp Pulse Resp BP Sys/Gallagher Pulse Ox Last 24 Hr 98.1 F-99.5 F 57-70 18-20 96-113/50-70 94-100 PHYSICAL EXAM GENERAL: NAD, awake, alert, and oriented HEENT: EOMI, ELLIS, sclera anicteric, moist mucosa NECK: No JVD, Supple LUNGS: CTA bilaterally, no wheezes, no crackles, no accessory muscle use. HEART: RRR, S1, S2 without murmur ABDOMEN: Soft, nondistended, incision closed with robbie without any drainage noted, incision C/D/I, LISA drain with 40cc of output serosanguinous with clearing dark colour, nontender, normoactive BS, no guarding, No masses appreciated. EXT: 2+ DP pulses, warm, no edema. PSYCH: Normal mood, normal affect. SKIN: Warm, dry, no rashes noted. LABS Laboratory Results - last 24 hr 07/21/17 07/21/17 07/21/17 09:13 09:13 09:13 WBC 5.7 RBC 3.41 L Hgb 11.1 L Hct 32.3 L MCV 94.7 MCH 32.5 MCHC 34.3 RDW 13.0 Plt Count 236 MPV 7.0 L PT with INR 13.90 H INR 1.23 H Sodium 140 Potassium 4.5 Chloride 106 Carbon Dioxide 30 Anion Gap 4 L BUN 7 Creatinine 0.6 L Random Glucose 102 Calcium 8.5 HOSPITAL COURSE: Date of Admission:07/13/17 Date of Discharge: 07/21/17 Pt was admitted on 07/13/17 due to RUQ pain where he was found to have a scarred GB with some gallstones. General surgery was consulted and decision to have cholecystectomy was made. Unfortunately during his laparoscopy a well-scarred intra-hepatic gallbladder with aberrant vascular anatomy was found and pt was converted from laparoscopic to open cholecystectomy with an EBL of 1300cc and a LISA drain was placed for a small bile leak. Josey-operatively, pt was given 2UPRBC to mitigate his EBL and was started on Zosyn for cholecystitis. Pt was sent to the ICU post-operatively and managed on a [employer] pump for pain control alongside of a bowel regiment. Pt's hemoglobin decreased to 9.6 at its trough despite 2UPRBC therapy and an abdominal CTA was elicited which revealed possible gastric varicosities (other findings below). Pt's hemoglobin up-trended and pt was transferred out of the ICU to the general medical-surgical floors. On POD#3 , despite tolerating his clear liquid diet without nausea, pt began to develop abdominal distention and discomfort due to post-op ileus aggravated by opiates confirmed by abdominal XR. GI recommendations were made for 1-2 soap water enemas followed by MiraLAX 3times per day. As a result pt began to have regular bowel movements with resolution of his post-op ileus. Lastly pt received an EGD for his assessment of possible varicosities, however upon visualization it was seen that pt did NOT have any varices at this point. Pt is being discharged in stable condition, tolerating diet, having bowel movements, and with his LISA drain. Pt has instructions to follow-up with Dr. Dominguez' office to have robbie removed and LISA drain assessed in 2 weeks maximum. In addition, pt has instructions for a CBC and CMP in 1 week and instruction for MRCP in 2 weeks for assessment of his GB fossa. Imaging reports: 07/13/17 Abdominal/Pelvis CT with IV contrast --Mild atelectactic changes in lingular segment of left upper lobe and in the right upper lobe. Cannot r/o infiltrates --Over distended gallbladder with multiple small stones and without CT evidence of acute cholecystitis --Large left renal lower pole exophytic simple cyst measuring 8.5cm --A few scattered diverticula in the colon without evidence of acute diverticulitis --Multiple surgical metallic clips in the region of the prostate gland suggestive of status post prostatectomy --Small fat-containing L and R inguinal hernia with minimal herniation of part of the sigmoid colon into proximal portion of the L inguinal hernia w/o evidence of bowel obstruction 07/14/17 Abdominal XRay --No retained foreign bodies are visualized other than robbie, clips and a drain. There is an NG tube in the LUQ. Tubing projects over the R flank. Pelvic clips, abdominal robbie and clips, RUQ drain and no sign of free air or obstruction. 07/16/17 Abdominal CTA with and without IV contrast --S/p cholecystectomy with percutaneous drainage catheter seen along the inferior edge of the liver. no appreciable fluid collection is seen. Multiple surgical clips seen in the region of the GB reno and RUQ with small air collection measuring 3.0x1.1cm w/ surrounding fat stranding likely post- surgical. Fluid likely postsurgical is seen between the muscle planes of the R abdominal wall with subcutaneous edema. There is severe bilateral posterior dependent lung atelectasis with trace pleural effusion R>L 07/17/17 CXR --No acute pathology Minutes to complete discharge: 40 Discharge Summary Reason For Visit: CHOLECYSTITIS,CHOLELITHIASIS Current Active Problems Abdominal pain (Acute) Acute blood loss anemia (Acute) Cholecystitis (Acute) Condition: Improved - Instructions Diet, Activity, Other Instructions: You were seen here for your abdominal pain which was attributed to your gallbladder being scarred and having to take it out. Dr. Dominguez left instructions for you below in regards to your surgery. In addition you had an EGD which is a scope of your esophagus and stomach which was negative for any worrisome signs. MEDICATIONS: Please do not take Aspirin as long as your LISA drain remains For your pain you can use Tylenol over the counter every 6 hours (as Dr. Dominguez' instructions suggest) You can continue your other medications as you have been. FOLLOW-UPS: Please follow-up with Dr. Andrade in regards to your hospital admission --You will need to redraw labs (CBC and CMP) in 1 week to check your blood counts and electrolyte levels --You will be given a prescription for this and can see any outpatient lab to draw them --You will need an MRI called MRCP, however you need to have your robbie removed prior Please follow-up with Dr. Dominguez' office (as below) in around [address] Dominguez' instructions: Postoperative instructions: You had a open cholecystectomy on 07/15/[address] Samson Dominguez of [facility]. Activity: Resume your usual activities gradually, but no heavy exertion or lifting more than 10-15 pounds for 1 month. You may shower daily starting then , just pat the incision areas dry. Eat lightly at first, but advance to your usual diet as tolerated. Pain: For pain, you may use Tylenol (acetaminophen) every 6 hours each as needed. Do not take more than 4000mg of acetaminophen in a day. Take medications as prescribed or indicated on the labeling. Follow-up: Call Dr. Dominguez' office at [phone] to make your postop appointment (Friday ~2 weeks after surgery). Clinic is held in the [facility] on the first [facility]. Call the office if you have: * increasing pain not responsive to pain medication * fever of 101F or higher * vomiting * unusual or increasing bleeding or drainage from wounds * increasing redness or swelling at wound sites * inability to urinate Also, see your primary medical doctor within 1-2 weeks. -you need to follow up with a urologist , regarding your left renal cyst. referral to Dr. Woodruff Referrals: Gadiel Woodruff MD [Staff Physician] - ON STAFF,NOT [Primary Care Provider] - (Dr. Pelayo . ) Disposition: HOME - Home Medications Comprehensive Discharge Medication List: Ambulatory Orders Atenolol [Tenormin -] 25 mg PO DAILY 09/18/12 Aspirin 162 mg PO DAILY 07/13/17 Atorvastatin Ca [Lipitor] 20 mg PO HS 07/13/17 Omeprazole 40 mg PO DAILY 07/13/17 This patient is new to me today: No Emergency Visit: No Critical Care patient: No - Discharge Referral Referred to [facility] No
--- NOTE | 2017-07-21 16:13 | PN ---
Teaching Attending Note Name of Resident: Gadiel Roberson ATTENDING PHYSICIAN STATEMENT I saw and evaluated the patient. I reviewed the resident's note and discussed the case with the resident. I agree with the resident's findings and plan as documented. SUBJECTIVE: No fever or chills. has no abd pain . no N/V. OBJECTIVE: NAD. CV: RRR Lungs: CTAB Abd: ND, NT. NL BS, soft. surgical wounds with robbie. bloody liquids from LISA L inguinal area with no hernia. Ext: no edema today ASSESSMENT AND PLAN: 72 y/o man with h/o HTn, DVT/PE in 12/01 off AC now who presented with RUQ pain and was found to have a scarred gall bladder with aberrant vasculature during cholecystectomy. 1- Constipation . cont bowel regimen after dc 2- S/p CCY . with aberrant vascular supply. - monitor LISA out put . care was taught to pt and family - cont pain control with tylenol after dc - MRCP can't be done due to surgical robbie. 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 EGD today unremarkable 5- Transaminitis : normalized 6- HTN: cont Atenolol. dc home
[2017-07-22] MEDS ORDERED: PANTOPRAZOLE 40 MG TABLET (FP) PO SCH (10:00)
== END 2017-07-21 17:31 | disposition home or self-care (01) | DRG 854 ==
LOC: JER 02:11 → INTOOBSV 06:38 → JERBED 06:38 → J6S 09:13 → OBSVTOIN 11:21 → JICU 07-14 15:30 → J8W 07-18 13:02
PROVIDERS: ADMIT Internal Medicine; ATTEND Internal Medicine
PROC: 0FJ44ZZ Inspection of Gallbladder, Percutaneous Endoscopic Approach (ICD-10-PCS; 2017-07-14)
PROC: 0F9400Z Drainage of Gallbladder with Drainage Device, Open Approach (ICD-10-PCS; 2017-07-14)
PROC: 0DL Gastrointestinal System, Occlusion (ICD-10-PCS; 2017-07-14)
PROC: 30233N1 Transfusion of Nonautologous Red Blood Cells into Peripheral Vein, Percutaneous Approach (ICD-10-PCS; 2017-07-14)
PROC: 0FT40ZZ Resection of Gallbladder, Open Approach (ICD-10-PCS; principal; 2017-07-14 08:00)
PROC: 0DJ08ZZ Inspection of Upper Intestinal Tract, Via Natural or Artificial Opening Endoscopic (ICD-10-PCS; 2017-07-21)
DX: A41.9 Sepsis, unspecified organism (principal); K80.00 Calculus of gallbladder with acute cholecystitis without obstruction; K91.61 Intraoperative hemorrhage and hematoma of a digestive system organ or structure complicating a digestive system procedure; D62 Acute posthemorrhagic anemia; N39.0 Urinary tract infection, site not specified; K91.30 Postprocedural intestinal obstruction, unspecified as to partial versus complete; E83.42 Hypomagnesemia; R00.1 Bradycardia, unspecified; Z87.891 Personal history of nicotine dependence; Z53.31 Laparoscopic surgical procedure converted to open procedure; Y83.8 Other surgical procedures as the cause of abnormal reaction of the patient, or of later complication, without mention of misadventure at the time of the procedure; I10 Essential (primary) hypertension; Z86.718 Personal history of other venous thrombosis and embolism; Z86.711 Personal history of pulmonary embolism; Z85.46 Personal history of malignant neoplasm of prostate; E78.5 Hyperlipidemia, unspecified; K59.00 Constipation, unspecified; R09.02 Hypoxemia; R74.0 Nonspecific elevation of levels of transaminase and lactic acid dehydrogenase [LDH]; K40.90 Unilateral inguinal hernia, without obstruction or gangrene, not specified as recurrent
CPT/HCPCS: 36415; 36430; 71045-TC-FY; 74018-TC-FY; 74019-TC-FY; 74175-TC; 74177-TC; 80048; 80053; 81003; 82150; 82247; 82962; 83690; 83735; 83880; 84100; 84484; 85025; 85027; 85379; 85610; 85730; 86850; 86900; 86901; 86922; 88304-TC; 93005; 93010; 94760; 97116-GP; 97161-GP; 99284-25; G0378; J0131; P9038; P9058

== ENCOUNTER 2017-07-23 10:49 | Emergency (ER) | payer BC, OTHER ==
[2017-07-23 11:11] VITALS: BP 0/0; PULSE 0; BMI 26.6
--- NOTE | 2017-07-23 11:23 | PDOC ---
History of Present Illness - General History Source: Patient Exam Limitations: Unresponsive - History of Present Illness Initial Comments: 07/23/17 11:55 The patient is a 72 year old male, with a significant past medical history of hypertension, hyperlipidemia, right leg DVT and v/l PE(dx 11/2016, completed AC tx in Mar 2017), Prostate CA (14yrs ago), Prostatectomy (not on Lovenox as of April), and cholelithiasis(s/p cholecystectomy 07/14/17), who presents to the emergency department BIBA unresponsive and in cardiac arrest since since. Per EMS the patient wpke up at his baseline and around 10:18 am was complaining of dizziness and suddenly collapsed/became unresponsive. EMS was activated by home health aide. During transport patient was in PEA rhythm and was given 4 rounds of Epinephrine and 1 round of Atropine, with temporary regainment of pulse. Patient had a recent Cholecystectomy and was discharged on 07/21/17, but was not anticoagulants. No recent travel or sick contacts. Allergies: NKDA Past Surgical History: Cholecystectomy Social History: Non smoker. No ETOH or recreational drug use. <Rosa Fiore - Last Filed: 07/23/17 11:59> <Sarwat Jamil - Last Filed: 07/23/17 13:50> - General Chief Complaint: Cardiac Arrest Stated Complaint: CARDIAC ARREST Time Seen by Provider: 07/23/17 11:23 Past History <Rosa Fiore - Last Filed: 07/23/17 11:59> - Past Medical History Anemia: No Asthma: No Cancer: Yes (PROSTATE; REMOVED) Cardiac Disorders: No CVA: No COPD: No CHF: No Dementia: No Diabetes: No GI Disorders: No Disorders: No HTN: Yes Hypercholesterolemia: Yes Liver Disease: No Seizures: No Thyroid Disease: No Other medical history: dvts - Surgical History Abdominal Surgery: Yes Appendectomy: No Cardiac Surgery: No Cholecystectomy: Yes (08/13/2017) Lung Surgery: No Neurologic Surgery: No Orthopedic Surgery: No - Immunization History Immunization Up to Date: No - Suicide/Smoking/Psychosocial Hx Smoking Status: No Smoking History: Never smoked Have you smoked in the past 12 months: No Number of Cigarettes Smoked Daily: 0 Information on smoking cessation initiated: No Hx Alcohol Use: No Drug/Substance Use Hx: No Substance Use Type: None Hx Substance Use Treatment: No <Sarwat Jamil - Last Filed: 07/23/17 13:50> - Past Medical History Allergies/Adverse Reactions: Allergies Allergy/AdvReac Type Severity Reaction Status Date / Time No Known Allergies Allergy Verified 07/13/17 02:45 Home Medications: Ambulatory Orders Atenolol [Tenormin -] 25 mg PO DAILY 09/18/12 Atorvastatin Ca [Lipitor] 20 mg PO HS 07/13/17 Omeprazole 40 mg PO DAILY 07/13/17 Acetaminophen [Tylenol] 325 mg PO Q6H PRN #30 tablet 07/21/17 Docusate Sodium [Colace -] 100 mg PO BID #60 capsule 07/21/17 Sennosides [Senna] 8.6 mg PO DAILY #30 tablet 07/21/17 Review of Systems - Review of Systems Able to Perform ROS?: No Comments:: 07/23/17 11:55 Unable to perform due to unresponsiveness. <Rosa Fiore - Last Filed: 07/23/17 11:59> *Physical Exam - Vital Signs Last Vital Signs Temp Pulse Resp BP Pulse Ox 0 F L 0 L 0 L 0/0 0 L 07/23/17 10:49 07/23/17 10:49 07/23/17 10:49 07/23/17 10:49 07/23/17 10:49 <Rosa Fiore - Last Filed: 07/23/17 11:59> - Vital Signs Last Vital Signs Temp Pulse Resp BP Pulse Ox 0 F L 0 L 0 L 0/0 0 L 07/23/17 10:49 07/23/17 10:49 07/23/17 10:49 07/23/17 10:49 07/23/17 10:49 - Physical Exam Comments: 07/23/17 13:44 Patient seen and evaluated immediately upon arrival. Normocephalic, atraumatic, Pupils are noted to be fixed and dilated bilaterally ET tube in place, 22 at the lip; small amount of bloody oropharyngeal secretions are noted; ET tube placement confirmed by direct visualization CTA, (air entry is slightly decreased on the left) Femoral pulses palpable with chest compressions only Right upper quadrant scar is noted with robbie intact, with a LISA drain in place ; no lower extremity edema or asymmetry noted <Sarwat Jamil Last Filed: 07/23/17 13:50> Medical Decision Making - Critical Care Time Total Critical Care Time (minutes): 45 Critical Care Statement: The care of this patient involved high complexity decision making to prevent further life threatening deterioration of the patient 's condition and/or to evaluate & treat vital organ system(s) failure or risk of failure. - Medical Decision Making 07/23/17 11:56 First call placed to Dr. Dominguez at 11:50. Awaiting call back. Case discussed with Dr. Dominguez at 11:52. <Rosa Fiore - Last Filed: 07/23/17 11:59> - Medical Decision Making 07/23/17 13:46 Patient is a 72-year-old male with history of hypertension, hyperlipidemia, DVT , status post open cholecystectomy one week previously brought in by EMS in cardiac arrest with PEA. Patient had collapsed at home, was intubated at the scene and had received epinephrine: 1 mg IV push 2 as well as 1 mg of atropine for bradycardia. Patient gracia was noted to have a palpable femoral pulse 15 minutes prior to arrival in the ED. In the ER, chest compressions continued and additional doses of epinephrine and sodium bicarbonate were administered without ROSC. Right femoral central venous catheter was placed for administration of additional epinephrine. (Initial epinephrine was administered through peripheral IV and left lower extremity I O); after approximately 45 minutes of pulselessness, patient was pronounced by me at 11:18 AM. ME: was notified and case declined. case: #[id number]. Patient's family request autopsy. <Sarwat Jamil - Last Filed: 07/23/17 13:50> *DC/Admit/Observation/Transfer - Attestations Scribe Attestion: 07/23/17 11:56 Documentation prepared by Rosa Fiore, acting as chief medical director for Sawrat Jamil MD. <Rosa Fiore - Last Filed: 07/23/17 11:59> - Attestations Physician Attestion: 07/23/17 13:44 The documentation was prepared by the scribe under my direct supervision. I have reviewed the documentation which correctly represents the findings, medical decision-making and critical action taken by me. <Sarwat Jamil - Last Filed: 07/23/17 13:50> Diagnosis at time of Disposition: Cardiac arrest - Discharge Dispostion Disposition: Condition at time of disposition:
[2017-07-23 13:29] VITALS: TEMP 98.5
== END 2017-07-23 16:00 | disposition expired ==
LOC: JER 10:49
PROC: 5A12012 Performance of Cardiac Output, Single, Manual (ICD-10-PCS; principal; 2017-07-23)
PROC: 06HY33Z Insertion of Infusion Device into Lower Vein, Percutaneous Approach (ICD-10-PCS; 2017-07-23)
PROC: 3E033GC Introduction of Other Therapeutic Substance into Peripheral Vein, Percutaneous Approach (ICD-10-PCS; 2017-07-23)
DX: I46.9 Cardiac arrest, cause unspecified (principal); I10 Essential (primary) hypertension; E78.5 Hyperlipidemia, unspecified; E78.00 Pure hypercholesterolemia, unspecified; Z86.718 Personal history of other venous thrombosis and embolism; Z86.711 Personal history of pulmonary embolism; Z85.46 Personal history of malignant neoplasm of prostate; Z90.79 Acquired absence of other genital organ(s); Z87.19 Personal history of other diseases of the digestive system; Z90.49 Acquired absence of other specified parts of digestive tract
CPT/HCPCS: 36556; 92950; 99285-25